=== PATIENT | female | born 1960 | race Caucasian/White ===

== ENCOUNTER 2020-03-13 08:39 | Outpatient (CLI) | payer OTHER, SELFPAY ==
[2020-03-13 09:10] LABS: Basophils Absolute Auto 0.1 K/mm3 (0.0-0.1); Basophils Percent Auto 0.6 % (0.2-1.2); Eosinophils Absolute Auto 0.1 K/mm3 (0-0.3); Eosinophils Percent Auto 1.5 % (0-4.4); Hematocrit 47.1 % (37.0-47.0); Hemoglobin 15.5 g/dL (12.0-15.0); Immature Granulocyte Absolute 0.06 K/mm3 (0.00-0.031); Immature Granulocyte Percent A 0.7 % (0-0.5); Lymphocytes Absolute Auto 2.46 K/mm3 (0.9-3.2); Lymphocytes Percent Auto 30.2 % (18.3-44.2); Mean Corpuscular HGB Conc 32.9 g/dl (32-36); Mean Corpuscular Hemoglobin 29.5 pg (26-34); Mean Corpuscular Volume 89.7 fl (80-100); Mean Platelet Volume 10.7 fl (7.4-10.4); Monocytes Absolute Auto 0.7 K/mm3 (0.1-0.6); Neutrophils Absolute Auto 4.8 K/mm3 (1.3-6.7); Platelet Count Result 301 k/mm3 (150-375); Red Blood Count 5.25 M/mm3 (4.2-5.4); Red Cell Distribution Width 12.6 % (11.5-14.5); White Blood Count 8.2 K/mm3 (4.5-10.0)
[2020-03-13 09:22] LABS: Alanine Aminotransferase 30 U/L (4-35); Albumin Level 4.5 g/dL (3.5-5.1); Alkaline Phosphatase 54 U/L (38-126); Anion Gap 13 mmol/L (8-16); Aspartate Amino Transferase 26 U/L (14-36); Bilirubin,Total 0.5 mg/dL (0.2-1.3); Blood Urea Nitrogen 23 mg/dL (7-17); Carbon Dioxide 24 mmol/L (22-30); Chloride 103 mmol/L (98-107); Cholesterol 159 mg/dL (0-200); Creatine Kinase 75 U/L (30-135); Estimated Glomerular Filt Rate > 60; Glucose 122 mg/dL (65-105); HDL Direct 53 mg/dL; Sodium 140 mmol/L (137-145); Triglycerides 84 mg/dL (<150)
[2020-03-13 09:25] LABS: Hemoglobin A1C 5.3 % (<5.7)
[2020-03-13 09:33] LABS: LDL Cholesterol Direct 91 mg/dL
[2020-03-13 09:42] LABS: Add Urine Microscopic? YES; Amorphous Sediment Urine Few; Appearance Urine Cloudy (Clear); Bacteria Urine Trace /hpf; Bilirubin Urine Negative (Negative); Color Urine Yellow (Yellow); Glucose Urine UA Negative (Negative); Ketones Urine Negative (Negative); Leukocyte Esterase Ur Negative LEU/UL (Negative); Mucus Urine Rare /lpf; Nitrate Urine Negative (Negative); Protein Urine Negative (Negative); Specific Grav Ur 1.018 (1.001-1.035); Squamous Epithelial Cell Urine Many /hpf (Few); Urobilinogen Urine Negative mg/dL (<2.0)
[2020-03-13 09:45] LABS: Blood Urine Negative (Negative)
[2020-03-13 10:28] LABS: Hepatitis C Virus Antibody Negative (Negative)
== END 2020-03-13 08:40 | disposition home or self-care (01) ==
PROVIDERS: PCP Internal Medicine; Visit Provider Internal Medicine
DX: Z13.0 Encounter for screening for diseases of the blood and blood-forming organs and certain disorders involving the immune mechanism (principal); Z11.59 Encounter for screening for other viral diseases
CPT/HCPCS: 36415; 80053; 80061; 81001; 82550; 83036; 84443; 85025; 86803; 87086

== ENCOUNTER 2020-05-04 00:39 | Outpatient (CLI) | payer OTHER, SELFPAY ==
[2020-05-04 18:51] LABS: SARS-CoV-2 RNA PCR Negative
== END 2020-05-04 00:40 | disposition home or self-care (01) ==
LOC: ANHCOVIDDT 00:39
PROVIDERS: PCP Internal Medicine; Visit Provider Internal Medicine Gastroenterology
DX: Z01.818 Encounter for other preprocedural examination (principal); Z20.828 Contact with and (suspected) exposure to other viral communicable diseases
CPT/HCPCS: 87635; C9803; U0003

== ENCOUNTER 2020-05-07 00:36 | Day surgery (SDC) | payer OTHER, SELFPAY ==
[2020-04-28 13:53] VITALS: BMI 32.0
[2020-05-07 08:16] VITALS: BP 142/94; PULSE 78; RESP 20; TEMP 36.5; O2SAT 98; BMI 32.2
[2020-05-07] MEDS: LACTATED RINGERS 1,000 ML 150 ML IV CONT (08:27)
--- NOTE | 2020-05-07 09:08 | PM.HPGS ---
History of Present Illness History of Present Illness Consent: Risks, benefits, and alternatives have been discussed and questions answered. Patient agrees to proceed with procedure. Chief complaint: Neoplasm Screening Narrative: Nalini Forte is a 60 year old female with polyps 2014, mother with rectal cancer Review of Systems Constitutional: Constitutional: Denies headache(s) and Denies weakness Eyes: Eyes: Denies blurry vision ENT: Reports Normal hearing present, Denies headache(s) and Denies neck pain Cardiovascular: Cardiovascular: Denies chest pain and Denies dyspnea Respiratory: Respiratory: Denies dyspnea Gastrointestinal: Gastrointestinal: Reports no additional gastrointestinal complaints Genitourinary: Genitourinary: Denies dysuria Musculoskeletal: Musculoskeletal: Denies neck pain Integumentary/Breasts: Skin/Breast: Denies dry skin Neurologic: Reports Normal hearing present, Denies headache(s) and Denies weakness Psychiatric: Psychiatric: Denies anxiety Endocrine: Endocrine: Denies change in body appearance Hematologic/Lymphatic: Hematologic/Lymphatic: Denies easy bleeding Allergic/Immunologic: Allergic/Immunologic: Denies urticaria PMF Past Medical History Medical History (Updated 05/07/20 @ 09:09 by Luiz Ocasio MD) Adenomatous colon polyp Family history of colon cancer in mother Social History Social History Smoking packs per day: 1 Smoking cigarettes per day: 20.0 Years smoked: 32 Smoking pack-years: 32.00 Smoking status: Former smoker Tobacco type: cigarettes Alcohol intake: current Drinks per week: 6 Alcohol use details: BEER Substance use: former Substance use type: marijuana Living arrangements: with family Spiritual care concerns: No Meds Home Medications and Allergies Home Medications Medication Instructions Recorded Confirmed Type peg 3350-electrolytes 236 240 ml PO Q10M #4000 ml 03/18/20 Rx gram-22.74 gram-6.74 gram-5.86 gram solution Glucomanan 2 tab-cap PO BID 04/28/20 04/28/20 History Tumeric 500 mg PO DAILY 04/28/20 04/28/20 History ascorbic acid (vitamin C) 1 g PO DAILY 04/28/20 04/28/20 History aspirin [Adult Low Dose Aspirin] 81 mg PO DAILY 04/28/20 04/28/20 History atorvastatin 10 mg PO DAILY 04/28/20 04/28/20 History calcium carbonate-vitamin D3 2 tablet PO DAILY 04/28/20 04/28/20 History [Calcium with Vitamin D] cetirizine [Zyrtec] 10 mg PO DAILY PRN 04/28/20 04/28/20 History cinnamon bark [Cinnamon] 500 mg PO DAILY 04/28/20 04/28/20 History green tea leaf extract [Green Tea] 315 mg PO DAILY 04/28/20 04/28/20 History levothyroxine 75 mcg PO DAILY 04/28/20 04/28/20 History magnesium 500 mg PO DAILY 04/28/20 04/28/20 History norethindrone ac-eth estradiol 1 tablet PO DAILY 04/28/20 04/28/20 History [Jinteli] triamterene-hydrochlorothiazid 1 tablet PO DAILY 04/28/20 04/28/20 History zinc 50 mg PO DAILY 04/28/20 04/28/20 History Allergies Allergy/AdvReac Type Severity Reaction Status Date / Time amoxicillin Allergy Intermediate Rash Verified 05/07/20 08:15 clavulanic acid Allergy Intermediate Rash Verified 05/07/20 08:15 [From Augmentin] Vital Signs Vital Signs - 24 hr 05/07/20 08:16 Temperature 97.7 F Pulse Rate 78 Respiratory Rate 20 Blood Pressure 142/94 H Pulse Oximetry 98 Exam Const: General: comfortable and no acute distress HENMT: General nose exam: Normal nares present Eyes: General: appearance normal, both eyes and all related structures Neck: Neck: no JVD Resp: Auscultation: clear to auscultation bilaterally Cardio: Rate: regular rate Rhythm: regular rhythm GI: Inspection: non-distended GI Palp: Yes Soft to palpation Skin: General skin exam: normal color Neuro: General: gait normal Speech: normal speech Extrem: General: normal to inspection Psych: Mental Status: mental status grossly normal Assessment and Plan Assessment and plan
--- NOTE | 2020-05-07 09:17 | WPDANESEPPF ---
Anes - Initial Pre Proc Eval Procedure: Operation Date: 05/07/20 09:30 Proposed Procedures p Screening Colonoscopy - Luiz Ocasio MD Date/Time: 05/07/20 09:17 Surgeon: Luiz Ocasio MD Pre Op Diagnosis: Neoplasm Screening Patient Data Age: 60 Gender: F Height: 5 ft 3 in Weight: 82.5 kg Last Vital Signs Temp 97.7 F 05/07/20 08:16 Pulse 78 05/07/20 08:16 Resp 20 05/07/20 08:16 BP 142/94 H 05/07/20 08:16 Pulse Ox 98 05/07/20 08:16 Allergies Allergy/AdvReac Type Severity Reaction Status Date / Time amoxicillin Allergy Intermediate Rash Verified 05/07/20 08:15 clavulanic acid Allergy Intermediate Rash Verified 05/07/20 08:15 [From Augmentin] Home Medications Medication Instructions Recorded Confirmed Type peg 3350-electrolytes 236 240 ml PO Q10M #4000 ml 03/18/20 Rx gram-22.74 gram-6.74 gram-5.86 gram solution Glucomanan 2 tab-cap PO BID 04/28/20 04/28/20 History Tumeric 500 mg PO DAILY 04/28/20 04/28/20 History ascorbic acid (vitamin C) 1 g PO DAILY 04/28/20 04/28/20 History aspirin [Adult Low Dose Aspirin] 81 mg PO DAILY 04/28/20 04/28/20 History atorvastatin 10 mg PO DAILY 04/28/20 04/28/20 History calcium carbonate-vitamin D3 2 tablet PO DAILY 04/28/20 04/28/20 History [Calcium with Vitamin D] cetirizine [Zyrtec] 10 mg PO DAILY PRN 04/28/20 04/28/20 History cinnamon bark [Cinnamon] 500 mg PO DAILY 04/28/20 04/28/20 History green tea leaf extract [Green Tea] 315 mg PO DAILY 04/28/20 04/28/20 History levothyroxine 75 mcg PO DAILY 04/28/20 04/28/20 History magnesium 500 mg PO DAILY 04/28/20 04/28/20 History norethindrone ac-eth estradiol 1 tablet PO DAILY 04/28/20 04/28/20 History [Jinteli] triamterene-hydrochlorothiazid 1 tablet PO DAILY 04/28/20 04/28/20 History zinc 50 mg PO DAILY 04/28/20 04/28/20 History Patient hx anesthesia problems: none Family hx anesthesia problems: none [facility] Past Medical History Medical History (Updated 05/07/20 @ 09:16 by Sid Duque MD) Adenomatous colon polyp Family history of colon cancer in mother Hyperlipidemia Hypertension Hypothyroid Social History Social History Smoking packs per day: 1 Smoking cigarettes per day: 20.0 Years smoked: 32 Smoking pack-years: 32.00 Smoking status: Former smoker Tobacco type: cigarettes Alcohol intake: current Drinks per week: 6 Alcohol use details: BEER Substance use: former Substance use type: marijuana Living arrangements: with family Spiritual care concerns: No Anes - Eval Final PreProcedure Day of Procedure 05/07/20 09:17 Patient weight: obese Heart: regular rate and rhythm Lungs: clear to auscultation Airway: Mallampati scale class II Neurological: alert and oriented Last oral intake: >/= 8 hours ASA classification: III Emergent: no Anesthetic plan: proceed Anesthesia type and monitoring: general GIVS and standard monitoring Informed Consent: The patient's anesthetic plan and its attendant risks and benefits were discussed with the patient/family/POA. Questions were solicited and answers provided to the satisfaction of the patient/family/POA.
[2020-05-07 09:41] VITALS: BP 139/87; PULSE 82; RESP 22; O2SAT 98
[2020-05-07 09:51] VITALS: BP 152/96; PULSE 70; RESP 20; O2SAT 100
[2020-05-07 10:01] VITALS: BP 103/70; PULSE 75; RESP 20; O2SAT 97
== END 2020-05-07 10:14 | disposition home or self-care (01) ==
PROVIDERS: PCP Internal Medicine; Visit Provider Internal Medicine Gastroenterology
PROC: 0DJD8ZZ Inspection of Lower Intestinal Tract, Via Natural or Artificial Opening Endoscopic (ICD-10-PCS; CPT 45378; principal; 2020-05-07 09:30)
DX: Z12.11 Encounter for screening for malignant neoplasm of colon (principal); D12.0 Benign neoplasm of cecum; D12.3 Benign neoplasm of transverse colon; K63.5 Polyp of colon; K57.30 Diverticulosis of large intestine without perforation or abscess without bleeding; K64.8 Other hemorrhoids; Z80.0 Family history of malignant neoplasm of digestive organs; I10 Essential (primary) hypertension; E78.5 Hyperlipidemia, unspecified; E03.9 Hypothyroidism, unspecified; Z87.891 Personal history of nicotine dependence; E66.9 Obesity, unspecified; Z68.32 Body mass index [BMI] 32.0-32.9, adult
CPT/HCPCS: 45380; 88305; J2704; J7120

== ENCOUNTER 2020-05-08 07:30 | Outpatient (CLI) | payer OTHER, SELFPAY ==
--- NOTE | ~2020-05-08 | MM_ITS ---
EXAMINATION: MM screening [facility] BI w drew HISTORY: Screening mammogram TECHNIQUE: Craniocaudal and mediolateral oblique 3-D tomosynthesis images were obtained and synthetic 2-D images were generated. CAD analysis was submitted and interpreted. COMPARISON: 04/12/2019, 04/13/2018, 03/15/2017 BREAST PARENCHYMAL COMPOSITION: There are scattered areas of fibroglandular density. FINDINGS: RIGHT BREAST: An asymmetry is present in the posterior third of the outer breast 7 cm from the nipple on the craniocaudal view. LEFT BREAST: There is no evidence of suspicious mass, calcification, or architectural distortion to s uggest malignancy. There has been no significant interval change. IMPRESSION: 1. Right breast asymmetry on the craniocaudal view 2. Additional mammographic views and possible breast ultrasound are recommended. BI-RADS Category 0: Incomplete: Needs additional imaging evaluation. Reviewed, dictated and finalized at location A. ICATIONS INSTRUCTOR IMPRESSION: 1. Right breast asymmetry on the craniocaudal view 2. Additional mammographic views and possible breast ultrasound are recommended . BI-RADS Category 0: Incomplete: Needs additional imaging evaluation.
== END 2020-05-08 07:31 | disposition home or self-care (01) ==
LOC: ANHIMG 07:37
PROVIDERS: PCP Internal Medicine
DX: Z12.31 Encounter for screening mammogram for malignant neoplasm of breast (principal); R92.8 Other abnormal and inconclusive findings on diagnostic imaging of breast
CPT/HCPCS: 77063; 77067

== ENCOUNTER 2020-06-11 13:14 | Outpatient (CLI) | payer OTHER, SELFPAY ==
--- NOTE | ~2020-06-11 | MMUS_ITS ---
EXAMINATION: MM diagnostic mammo unilat RT, US breast RT limited HISTORY: Follow-up right breast asymmetry TECHNIQUE: Additional 3-D tomosynthesis images of the right breast were performed and synthetic 2-D i mages were generated. CAD analysis was submitted and interpreted. High resolution Limited right breas t ultrasound was performed. COMPARISON: Comparison to multiple prior studies sequentially, with oldest reviewed study dated 02/26. BREAST PARENCHYMAL COMPOSITION: Breast composed of scattered areas of fibroglandular density. FINDINGS: MAMMOGRAPHIC FINDINGS: There are no suspicious masses, calcifications or architectural distortion in the right breast to sug gest malignancy. ULTRASOUND: Limited right breast ultrasound: Normal heterogeneous echotexture without focal solid or cystic mass. IMPRESSION: 1. No mammographic or sonographic evidence for malignancy in the right breast. 2. Routine yearly screening mammogram and regular clinical breast examination are recommended. BI-RADS Category 1: Negative Reviewed, dictated and finalized at location A. CH BILLING PAYROLL CLERK IMPRESSION: 1. No mammographic or sonographic evidence for malignancy in the right breast. 2. Routine yearly screening mammogram and regular clinical breast examination a re recommended. BI-RADS Category 1: Negative
== END 2020-06-11 13:15 | disposition home or self-care (01) ==
LOC: ANHIMG 13:17
PROVIDERS: PCP Internal Medicine
DX: R92.8 Other abnormal and inconclusive findings on diagnostic imaging of breast (principal)
CPT/HCPCS: 76642; 77065

== ENCOUNTER 2020-07-19 10:28 | Outpatient (CLI) | payer OTHER, SELFPAY ==
[2020-07-19 11:01] LABS: Alanine Aminotransferase 27 U/L (4-35); Aspartate Amino Transferase 27 U/L (14-36)
== END 2020-07-19 10:29 | disposition home or self-care (01) ==
LOC: ANHLAB 10:30
PROVIDERS: PCP Internal Medicine; Visit Provider Podiatrist Foot & Ankle Surgery
DX: B35.1 Tinea unguium (principal)
CPT/HCPCS: 36415; 84450; 84460

== ENCOUNTER 2020-10-21 10:26 | Outpatient (CLI) | payer OTHER, SELFPAY ==
[2020-10-21 10:53] LABS: Alanine Aminotransferase 27 U/L (4-35); Aspartate Amino Transferase 29 U/L (14-36)
== END 2020-10-21 10:27 | disposition home or self-care (01) ==
LOC: ANHLAB 10:28
PROVIDERS: PCP Internal Medicine; Visit Provider Podiatrist Foot & Ankle Surgery
DX: B35.1 Tinea unguium (principal)
CPT/HCPCS: 36415; 84450; 84460

== ENCOUNTER 2020-11-26 08:45 | Outpatient (CLI) | payer OTHER, SELFPAY ==
[2020-11-26 11:37] LABS: Hepatitis C Virus Antibody Negative (Negative)
== END 2020-11-26 08:46 | disposition home or self-care (01) ==
PROVIDERS: PCP Internal Medicine; Visit Provider Internal Medicine
DX: E03.9 Hypothyroidism, unspecified (principal); Z11.59 Encounter for screening for other viral diseases
CPT/HCPCS: 36415; 84443; 86803

== ENCOUNTER 2021-01-17 08:45 | Outpatient (CLI) | payer OTHER, SELFPAY ==
[2021-01-17 09:24] LABS: Alanine Aminotransferase 39 U/L (4-35); Aspartate Amino Transferase 33 U/L (14-36)
== END 2021-01-17 08:46 | disposition home or self-care (01) ==
PROVIDERS: PCP Internal Medicine; Visit Provider Podiatrist Foot & Ankle Surgery
DX: B35.1 Tinea unguium (principal)
CPT/HCPCS: 36415; 84450; 84460

== ENCOUNTER 2021-07-05 07:16 | Outpatient (CLI) | payer OTHER, SELFPAY ==
--- NOTE | ~2021-07-05 | MM_ITS ---
EXAMINATION: MM screening [facility] BI w drew HISTORY: Screening TECHNIQUE: Craniocaudal and mediolateral oblique 3-D tomosynthesis images were obtained and synthetic 2-D images were generated. CAD analysis was submitted and interpreted. COMPARISON: Comparison to multiple prior studies sequentially, with oldest reviewed study dated 02/25. BREAST PARENCHYMAL COMPOSITION: There are scattered areas of fibroglandular density. FINDINGS: There is no evidence of suspicious mass, calcification, or architectural distortion to sugg est malignancy in either breast. There has been no suspicious interval change. IMPRESSION: 1. No mammographic evidence of malignancy. 2. Recommend routine screening mammography in one year. BI-RADS Category 1: Negative Reviewed, dictated and finalized at location A. LE SCHOOL LIBRARIAN
== END 2021-07-05 07:17 | disposition home or self-care (01) ==
LOC: ANHIMG 07:18
PROVIDERS: PCP Internal Medicine
DX: Z12.31 Encounter for screening mammogram for malignant neoplasm of breast (principal)
CPT/HCPCS: 77063; 77067

== ENCOUNTER 2021-08-06 08:06 | Outpatient (CLI) | payer OTHER, SELFPAY ==
[2021-08-06 08:59] LABS: Basophils Absolute Auto 0.1 K/mm3 (0.0-0.1); Basophils Percent Auto 0.9 % (0.2-1.2); Eosinophils Absolute Auto 0.1 K/mm3 (0-0.3); Eosinophils Percent Auto 1.3 % (0-4.4); Hematocrit 45.3 % (37.0-47.0); Hemoglobin 14.9 g/dL (12.0-15.0); Immature Granulocyte Absolute 0.04 K/mm3 (0.00-0.031); Immature Granulocyte Percent A 0.6 % (0-0.5); Lymphocytes Absolute Auto 2.11 K/mm3 (0.9-3.2); Lymphocytes Percent Auto 31.4 % (18.3-44.2); Mean Corpuscular HGB Conc 32.9 g/dl (32-36); Mean Corpuscular Hemoglobin 30.2 pg (26-34); Mean Corpuscular Volume 91.7 fl (80-100); Mean Platelet Volume 10.1 fl (7.4-10.4); Monocytes Absolute Auto 0.5 K/mm3 (0.1-0.6); Monocytes Percent Auto 7.6 % (2.6-8.5); Neutrophils Absolute Auto 3.9 K/mm3 (1.3-6.7); Neutrophils Percent Auto 58.2 % (45.5-73.1); Platelet Count Result 300 k/mm3 (150-375); Red Blood Count 4.94 M/mm3 (4.2-5.4); Red Cell Distribution Width 13.2 % (11.5-14.5); White Blood Count 6.7 K/mm3 (4.5-10.0)
[2021-08-06 09:15] LABS: Add Urine Microscopic? YES; Alanine Aminotransferase 33 U/L (4-35); Albumin Level 4.4 g/dL (3.5-5.1); Alkaline Phosphatase 63 U/L (38-126); Anion Gap 5 mmol/L (8-16); Appearance Urine Cloudy (Clear); Aspartate Amino Transferase 32 U/L (14-36); Bilirubin Urine Negative (Negative); Bilirubin,Total 0.3 mg/dL (0.2-1.3); Blood Urea Nitrogen 21 mg/dL (7-17); Calcium 9.5 mg/dL (8.4-10.2); Carbon Dioxide 30 mmol/L (22-30); Chloride 103 mmol/L (98-107); Cholesterol 164 mg/dL (0-200); Color Urine Amber (Yellow); Estimated Glomerular Filt Rate > 60; Glucose 112 mg/dL (65-110); Glucose Urine UA Negative (Negative); HDL Direct 52 mg/dL; Ketones Urine Negative (Negative); Leukocyte Esterase Ur 2+ LEU/UL (Negative); Mucus Urine Rare /lpf; Nitrate Urine Negative (Negative); Potassium 3.8 mmol/L (3.4-5.0); Protein Urine Negative (Negative); Sodium 138 mmol/L (137-145); Specific Grav Ur 1.017 (1.001-1.035); Squamous Epithelial Cell Urine Many /hpf (Few); Triglycerides 73 mg/dL (<150); Urobilinogen Urine Negative mg/dL (<2.0); WBC Urine 31-50 /hpf
[2021-08-06 09:17] LABS: Blood Urine Negative (Negative)
[2021-08-06 09:26] LABS: LDL Cholesterol Direct 88 mg/dL
[2021-08-06 09:43] LABS: Thyroid Stimulating Hormone 0.038 uIU/mL (0.465-4.680)
== END 2021-08-06 08:07 | disposition home or self-care (01) ==
PROVIDERS: PCP Internal Medicine; Visit Provider Internal Medicine
DX: Z13.0 Encounter for screening for diseases of the blood and blood-forming organs and certain disorders involving the immune mechanism (principal); I10 Essential (primary) hypertension; E78.5 Hyperlipidemia, unspecified; E03.9 Hypothyroidism, unspecified
CPT/HCPCS: 36415; 80053; 80061; 81001; 83036; 84443; 85025; 87086

== ENCOUNTER 2021-09-23 14:49 | Outpatient (CLI) | payer OTHER, SELFPAY | END 2021-09-23 14:50 | disposition home or self-care (01) | LOC: ANHLAB 14:53 | PROVIDERS: PCP Internal Medicine | DX: E03.9 Hypothyroidism, unspecified (principal) | CPT/HCPCS: 36415; 84443 ==

== ENCOUNTER 2022-01-17 10:20 | Outpatient (CLI) | payer OTHER, SELFPAY ==
[2022-01-17 10:54] LABS: Alanine Aminotransferase 24 U/L (6-35); Aspartate Amino Transferase 35 U/L (14-36)
== END 2022-01-17 10:21 | disposition home or self-care (01) ==
PROVIDERS: PCP Internal Medicine; Visit Provider Podiatrist Foot & Ankle Surgery
DX: B35.1 Tinea unguium (principal)
CPT/HCPCS: 36415; 84450; 84460

== ENCOUNTER 2022-04-25 09:25 | Outpatient (CLI) | payer OTHER, SELFPAY ==
[2022-04-25 10:09] LABS: Alanine Aminotransferase 29 U/L (6-35); Aspartate Amino Transferase 30 U/L (14-36)
== END 2022-04-25 09:26 | disposition home or self-care (01) ==
LOC: ANHLAB 09:28
PROVIDERS: PCP Internal Medicine; Visit Provider Podiatrist Foot & Ankle Surgery
DX: B35.1 Tinea unguium (principal)
CPT/HCPCS: 36415; 84450; 84460

== ENCOUNTER 2022-07-13 09:10 | Outpatient (CLI) | payer OTHER, SELFPAY ==
[2022-07-13 10:27] LABS: Alanine Aminotransferase 34 U/L (6-35); Aspartate Amino Transferase 29 U/L (14-36)
== END 2022-07-13 09:11 | disposition home or self-care (01) ==
LOC: ANHLAB 09:12
PROVIDERS: PCP Internal Medicine; Visit Provider Podiatrist Foot & Ankle Surgery
DX: B35.1 Tinea unguium (principal)
CPT/HCPCS: 36415; 84450; 84460

== ENCOUNTER 2022-07-29 09:40 | Outpatient (CLI) | payer OTHER, SELFPAY ==
--- NOTE | ~2022-07-29 | DEXA_ITS ---
Bone Density Report Name: TRACIE LIRIANO Age: 62 Sex: Female Ethnicity: White Date of : 1960 Indication: postmenopausal; screening for osteoporosis; Referring Provider: DAVIE, ANIL Study: Bone densitometry was performed. Exam Date: July 29, 2022 Accession number: [id number] Bone Density: Region BMD T-score Z-score Classification AP Spine(L1-L4) 1.037 -0.1 1.3 Normal Femoral Neck (Left) 0.855 0.0 1.3 Normal Total Hip (Left) 1.045 0.8 1.8 Normal Femoral Neck (Right) 0.896 0.4 1.7 Normal Total Hip (Right) 1.028 0.7 1.7 Normal Total Hip Mean 1.037 0.8 1.8 Normal World Health Organization criteria for BMD impression classify patients as: Normal (T-score at or above -1.0), Osteopenia (T-score between -1.0 and -2.5), or Osteoporosis (T-score at or below -2.5). 10-year Fracture Risk: FRAX not reported because: All T-scores for Spine Total, Hip Total, Femoral Neck at or above -1.0 Clinical Information Provided by Patient: Has used the following medications: Vitamin D, Calcium Patient maximum height was 62 Menopause Age: 52 Drinks caffeinated beverages Onset of menses at age 14 Number of children 0 Impression: The patient has normal bone mass. Discussion: BONE DENSITY IS ABOVE THE MINIMUM DESIRABLE LEVEL AT ALL SKELETAL SITES TESTED. This patient?s bone mineral density is above the minimum desirable level (T-score -1.0 or better) at all sites measured. The patient should follow a healthful lifestyle (good nutrition with adequate calcium and vitamin D, and appropriate weight-bearing exercise). Follow-Up: Consider repeating this study in 5 years or sooner if there is some new clinical indication. Reported by: [facility] on 07/29/2022 10:08:00 AM. Reviewed, dictated and finalized at location A. [facility]
--- NOTE | ~2022-07-29 | MM_ITS ---
EXAMINATION: MM screening [facility] BI w drew HISTORY: Screening mammogram TECHNIQUE: Craniocaudal and mediolateral oblique 3-D tomosynthesis images were obtained and synthetic 2-D images were generated. CAD analysis was submitted and interpreted. COMPARISON: 07/05/2021, 06/11/2020, 05/08/2020 BREAST PARENCHYMAL COMPOSITION: There are scattered areas of fibroglandular density. FINDINGS: No suspicious mass, calcification, or architectural distortion are identified in either ana cristina ast to suggest malignancy. There has been no suspicious interval change. IMPRESSION: 1. No mammographic evidence of malignancy. 2. Recommend routine screening mammography in one year. BI-RADS Category 1: Negative Reviewed, dictated and finalized at location A. RITY DIRECTOR
== END 2022-07-29 09:41 | disposition home or self-care (01) ==
LOC: ANHIMG 09:42
PROVIDERS: PCP Internal Medicine; Visit Provider Nurse Practitioner
DX: Z12.31 Encounter for screening mammogram for malignant neoplasm of breast (principal); Z13.820 Encounter for screening for osteoporosis; Z78.0 Asymptomatic menopausal state
CPT/HCPCS: 77063; 77067; 77080

== ENCOUNTER 2022-08-05 07:05 | Outpatient (CLI) | payer OTHER, SELFPAY ==
[2022-08-05 07:19] LABS: Basophils Percent Auto 0.6 % (0.2-1.2); Eosinophils Absolute Auto 0.1 K/mm3 (0-0.3); Eosinophils Percent Auto 1.1 % (0-4.4); Hemoglobin 15.7 g/dL (12.0-15.0); Immature Granulocyte Absolute 0.03 K/mm3 (0.00-0.031); Immature Granulocyte Percent A 0.5 % (0-0.5); Lymphocytes Absolute Auto 1.95 K/mm3 (0.9-3.2); Lymphocytes Percent Auto 29.8 % (18.3-44.2); Mean Corpuscular HGB Conc 34.1 g/dl (32-36); Mean Corpuscular Hemoglobin 29.8 pg (26-34); Mean Corpuscular Volume 87.5 fl (80-100); Monocytes Absolute Auto 0.5 K/mm3 (0.1-0.6); Monocytes Percent Auto 7.5 % (2.6-8.5); Neutrophils Percent Auto 60.5 % (45.5-73.1); Platelet Count Result 291 k/mm3 (150-375); Red Blood Count 5.26 M/mm3 (4.2-5.4); Red Cell Distribution Width 12.3 % (11.5-14.5); White Blood Count 6.6 K/mm3 (4.5-10.0)
[2022-08-05 07:26] LABS: Appearance Urine Clear (Clear); Bacteria Urine None Seen /hpf; Bilirubin Urine Negative (Negative); Blood Urine Negative (Negative); Color Urine Dark Yellow (Yellow); Glucose Urine UA Negative (Negative); Ketones Urine Negative (Negative); Leukocyte Esterase Ur Trace LEU/UL (Negative); Nitrate Urine Negative (Negative); Non Pathogenic Casts 0-2; Protein Urine Negative (Negative); RBC Urine 0-2 /hpf (0-2); Specific Grav Ur 1.017 (1.001-1.035); Squamous Epithelial Cell Urine Occasional /hpf (Few); Urobilinogen Urine 0.2 mg/dL (<2.0); WBC Urine 0-5 /hpf
[2022-08-05 07:30] LABS: Add Urine Microscopic? YES
[2022-08-05 07:34] LABS: Alanine Aminotransferase 29 U/L (6-35); Albumin Level 4.5 g/dL (3.5-5.1); Alkaline Phosphatase 67 U/L (38-126); Anion Gap 6 mmol/L (8-16); Aspartate Amino Transferase 27 U/L (14-36); Bilirubin,Total 0.5 mg/dL (0.2-1.3); Blood Urea Nitrogen 21 mg/dL (7-17); Calcium 9.4 mg/dL (8.4-10.2); Carbon Dioxide 29 mmol/L (22-30); Chloride 101 mmol/L (98-107); Cholesterol 164 mg/dL (0-200); Estimated Glomerular Filt Rate > 60; Glucose 105 mg/dL (65-110); HDL Direct 61 mg/dL; Potassium 3.7 mmol/L (3.4-5.0); Sodium 136 mmol/L (137-145); Triglycerides 89 mg/dL (<150)
[2022-08-05 07:45] LABS: LDL Cholesterol Direct 81 mg/dL
[2022-08-05 08:35] LABS: Hemoglobin A1C 5.3 % (<5.7)
== END 2022-08-05 07:06 | disposition home or self-care (01) ==
PROVIDERS: PCP Internal Medicine; Visit Provider Internal Medicine
DX: Z13.0 Encounter for screening for diseases of the blood and blood-forming organs and certain disorders involving the immune mechanism (principal)
CPT/HCPCS: 36415; 80053; 80061; 81001; 83036; 84443; 85025

== ENCOUNTER 2022-10-05 15:48 | Outpatient (CLI) | payer OTHER, SELFPAY ==
[2022-10-05 18:57] LABS: Hepatitis C Virus Antibody Negative (Negative)
== END 2022-10-05 15:49 | disposition home or self-care (01) ==
LOC: ANHLAB 15:50
PROVIDERS: PCP Internal Medicine; Visit Provider Internal Medicine
DX: Z11.59 Encounter for screening for other viral diseases (principal)
CPT/HCPCS: 36415; 86803

== ENCOUNTER 2023-08-03 06:58 | Outpatient (CLI) | payer OTHER, SELFPAY ==
[2023-08-03 07:35] LABS: Appearance Urine Clear (Clear); Bilirubin Urine Negative (Negative); Blood Urine Negative (Negative); Color Urine Yellow (Yellow); Glucose Urine UA Negative (Negative); Ketones Urine Negative (Negative); Leukocyte Esterase Ur Negative LEU/UL (Negative); Nitrate Urine Negative (Negative); Protein Urine Negative (Negative); Urobilinogen Urine 0.2 mg/dL (<2.0); pH Urine 6.5 (5.0-9.0)
[2023-08-03 07:36] LABS: Basophils Percent Auto 0.6 % (0.2-1.2); Eosinophils Absolute Auto 0.1 K/mm3 (0-0.3); Eosinophils Percent Auto 2.1 % (0-4.4); Hematocrit 49.9 % (37.0-47.0); Immature Granulocyte Absolute 0.03 K/mm3 (0.00-0.031); Immature Granulocyte Percent A 0.4 % (0-0.5); Lymphocytes Absolute Auto 2.21 K/mm3 (0.9-3.2); Lymphocytes Percent Auto 32.8 % (18.3-44.2); Mean Corpuscular HGB Conc 32.1 g/dl (32-36); Mean Corpuscular Hemoglobin 28.9 pg (26-34); Mean Corpuscular Volume 90.2 fl (80-100); Mean Platelet Volume 10.4 fl (7.4-10.4); Monocytes Absolute Auto 0.4 K/mm3 (0.1-0.6); Monocytes Percent Auto 6.1 % (2.6-8.5); Neutrophils Absolute Auto 3.9 K/mm3 (1.3-6.7); Platelet Count Result 269 k/mm3 (150-375); Red Blood Count 5.53 M/mm3 (4.2-5.4); Red Cell Distribution Width 12.9 % (11.5-14.5); White Blood Count 6.7 K/mm3 (4.5-10.0)
[2023-08-03 07:37] LABS: Add Urine Microscopic? NO
[2023-08-03 07:49] LABS: Alanine Aminotransferase 30 U/L (6-35); Albumin Level 4.4 g/dL (3.5-5.1); Alkaline Phosphatase 58 U/L (38-126); Anion Gap 3 mmol/L (8-16); Aspartate Amino Transferase 30 U/L (14-36); Bilirubin,Total 0.5 mg/dL (0.2-1.3); Blood Urea Nitrogen 29 mg/dL (7-17); Calcium 10.3 mg/dL (8.4-10.2); Carbon Dioxide 31 mmol/L (22-30); Chloride 104 mmol/L (98-107); Cholesterol 180 mg/dL (0-200); Estimated Glomerular Filt Rate > 60; Glucose 107 mg/dL (65-110); HDL Direct 75 mg/dL; Sodium 138 mmol/L (137-145); Triglycerides 77 mg/dL (<150)
[2023-08-03 08:00] LABS: LDL Cholesterol Direct 96 mg/dL
[2023-08-03 08:13] LABS: Hemoglobin A1C 5.8 % (<5.7)
== END 2023-08-03 06:59 | disposition home or self-care (01) ==
LOC: ANHLAB 07:01
PROVIDERS: PCP Internal Medicine; Visit Provider Internal Medicine
DX: Z13.9 Encounter for screening, unspecified (principal)
CPT/HCPCS: 36415; 80053; 80061; 81003; 83036; 84443; 85025

== ENCOUNTER 2023-10-04 09:49 | Outpatient (CLI) | payer OTHER, SELFPAY ==
--- NOTE | ~2023-10-04 | MM_ITS ---
EXAMINATION: MM screening [facility] BI w drew HISTORY: Screening mammogram TECHNIQUE: Craniocaudal and mediolateral oblique 3-D tomosynthesis images were obtained and synthetic 2-D images were generated. CAD analysis was submitted and interpreted. COMPARISON: 07/29/2022, 07/05/2021 bilateral screening mammogram examinations BREAST PARENCHYMAL COMPOSITION: There are scattered areas of fibroglandular density. FINDINGS: There is no evidence of suspicious mass, calcification, or architectural distortion to sugg est malignancy in either breast. There has been no suspicious interval change. IMPRESSION: 1. No mammographic evidence of malignancy. 2. Recommend routine screening mammography in one year. BI-RADS Category 1: Negative Reviewed, dictated and finalized at location B.
== END 2023-10-04 09:50 | disposition home or self-care (01) ==
PROVIDERS: PCP Internal Medicine; Visit Provider Nurse Practitioner
DX: Z12.31 Encounter for screening mammogram for malignant neoplasm of breast (principal)
CPT/HCPCS: 77063; 77067

== ENCOUNTER 2024-02-07 14:01 | Outpatient (CLI) | payer OTHER, SELFPAY ==
[2024-02-07 15:11] LABS: Alanine Aminotransferase 23 U/L (6-35); Albumin Level 4.5 g/dL (3.5-5.1); Alkaline Phosphatase 49 U/L (38-126); Anion Gap 6 mmol/L (4-12); Aspartate Amino Transferase 29 U/L (14-36); Bilirubin,Total 0.6 mg/dL (0.2-1.3); Blood Urea Nitrogen 21 mg/dL (7-17); Calcium 10.5 mg/dL (8.4-10.2); Carbon Dioxide 33 mmol/L (22-30); Chloride 91 mmol/L (98-107); Estimated Glomerular Filt Rate > 60; Glucose 85 mg/dL (65-110); Potassium 3.3 mmol/L (3.4-5.0); Sodium 130 mmol/L (137-145)
[2024-02-07 15:51] LABS: Hemoglobin A1C 5.2 % (<5.7)
[2024-02-09 05:09] LABS: TSH QUEST 2.69 mIU/L (0.40-4.50)
== END 2024-02-07 14:02 | disposition home or self-care (01) ==
LOC: ANHLAB 14:03
PROVIDERS: PCP Internal Medicine; Visit Provider Internal Medicine
DX: E03.9 Hypothyroidism, unspecified (principal); I10 Essential (primary) hypertension; E78.5 Hyperlipidemia, unspecified
CPT/HCPCS: 36415; 80053; 83036; 84481; 86376

== ENCOUNTER 2024-04-30 15:57 | Emergency (ER) | payer OTHER, SELFPAY ==
[2024-04-30 16:04] VITALS: BP 136/71; PULSE 60; RESP 18; TEMP 36.2; O2SAT 100
[2024-04-30 16:12] LABS: EDUAAPPEAR Cloudy; EDUABILI Negative (Negative); EDUABLOOD 3+ (Negative); EDUACOLOR1 Dark; EDUAGLUCOSE Negative (Negative); EDUAKETONE 1+ (Negative); EDUALEUKO 1+ (Negative); EDUANITRATE Positive (Negative); EDUAPROTEIN 2+ (Negative); EDUAUROBILI 0.2
--- NOTE | 2024-04-30 16:12 | ED_ITS ---
HPI - Female Genitourinary General Chief complaint: Urogenital-Female Stated complaint: Possible UTI Time Seen by Provider: 04/30/24 16:12 Source: patient, RN notes reviewed and old records reviewed Mode of arrival: ambulatory Limitations: no limitations History of Present Illness HPI Narrative: patient presents with complaints of urinary frequency and burning that began this morning. She denies any fever, chills, sweats. She denies any backache or abdominal pain. She denies any nausea or vomiting. Denies hematuria. She reports pain is intense every time she has urinated today. Denies any injury or trauma. No other concerns or complaints at this time Related Data Home Medications Medication Instructions Recorded Confirmed Glucomanan 1 dose PO DAILY 04/28/20 04/30/24 ascorbic acid (vitamin C) 1,000 mg 1 g PO DAILY 04/28/20 04/30/24 tablet atorvastatin 10 mg tablet 10 mg PO DAILY 04/28/20 04/30/24 cetirizine 10 mg tablet (Zyrtec) 10 mg PO DAILY PRN Allergy Symptoms 04/28/20 04/30/24 cinnamon bark 500 mg capsule 500 mg PO DAILY 04/28/20 04/30/24 (Cinnamon) levothyroxine 75 mcg tablet 50 mcg PO DAILY 04/28/20 04/30/24 magnesium 500 mg tablet 500 mg PO DAILY 04/28/20 04/30/24 norethindrone acetate 1 mg-ethinyl 0.5 tablet PO DAILY 04/28/20 04/30/24 estradiol 5 mcg tablet (Jinteli) zinc 50 mg tablet 50 mg PO DAILY 04/28/20 04/30/24 berberine chloride 500 mg capsule 500 mg PO BID 04/28/24 04/30/24 cholecalciferol (vitamin D3) 25 25 mcg PO DAILY 04/28/24 04/30/24 mcg (1,000 unit) capsule (Vitamin D3) olmesartan 5 mg tablet 5 mg PO DAILY 04/28/24 04/30/24 semaglutide (weight loss) 0.5 0.5 mg subcut WEEKLY 04/30/24 04/30/24 mg/0.5 mL subcutaneous pen injector Allergies Allergy/AdvReac Type Severity Reaction Status Date / Time amoxicillin Allergy Mild Rash Verified 04/30/24 15:59 clavulanic acid Allergy Mild Rash Verified 04/30/24 15:59 [From Augmentin] Review of Systems Review of Systems: All systems reviewed & are unremarkable except as noted in HPI and below Constitutional: Constitutional: Reports no additional constitutional complaints ENT: Reports system reviewed and no additional complaints, except as documented Cardiovascular: Cardiovascular: Reports no additional cardiovascular complaints Respiratory: Respiratory: Reports no additional respiratory complaints Gastrointestinal: Gastrointestinal: Reports no additional gastrointestinal complaints Genitourinary: Genitourinary: Reports no additional female genitourinary complaints, Reports as per HPI, Reports dysuria and Reports urinary urgency [facility] Past Medical History Medical History (Updated 04/30/24 @ 16:17 by Tamiko Velazquez APRN) Adenomatous colon polyp Family history of colon cancer in mother Hyperlipidemia Hypertension Hypothyroid Social History Social History Smoking packs per day: 1 Smoking cigarettes per day: 20.0 Years smoked: 32 Smoking pack-years: 32.00 Smoking status: Former smoker Tobacco type: cigarettes Alcohol intake: current Drinks per week: 6 Alcohol use details: Beer, rum Substance use: never Substance use type: marijuana Living arrangements: with family Spiritual care concerns: No Comments At the time of my signature, I reviewed and agree with the nursing past medical, surgical, social, and family history. There is no relevant family history pertinent to the patient complaint. Exam Const: General: cooperative, no acute distress, alert and awake Orientation/consciousness: oriented to person, oriented to place and oriented to time HENMT: Head: normal to inspection Resp: Effort & Inspection: normal respiratory effort and able to speak in complete sentences Auscultation: clear to auscultation bilaterally, no crackles, no rales, no rhonchi and no wheezes Cardio: Palpation: normal PMI Rate: regular rate Rhythm: regular rhythm Heart sounds: S1 normal heart sound present and S2 normal heart sound present : General: Yes bladder normal to palpation and Yes no CVA tenderness Neuro: General: oriented to person, oriented to place and oriented to time Cranial nerves: Yes CN's II-XII intact bilaterally Psych: Appearance: grossly normal Thought process: Normal thought process present Insight: Good insight present (Psych) Judgement: Good judgement present (Psych) Course Course Level of Care: Express Care Visit Vital Signs Vital signs: Vital Signs Temperature 97.2 F L 04/30/24 16:04 Pulse Rate 60 04/30/24 16:04 Respiratory Rate 18 04/30/24 16:04 Blood Pressure 136/71 04/30/24 16:04 Pulse Oximetry 100 04/30/24 16:04 Oxygen Delivery Room Air 04/30/24 16:04 Temperature 97.2 F L 04/30/24 16:04 Pulse Rate 60 04/30/24 16:04 Respiratory Rate 18 04/30/24 16:04 Blood Pressure 136/71 04/30/24 16:04 Pulse Oximetry 100 04/30/24 16:04 Oxygen Delivery Room Air 04/30/24 16:04 Reviewed MDM - Female Genitourinary MDM Narrative Medical decision making narrative: reassuring physical exam. Patient nontoxic appearing. UA consistent with UTI, start Macrobid. Culture pending. Follow with primary care provider. Emergency department for new worse symptoms. Discharge instructions reviewed with patient, as well as provided in writing per nursing staff. The instructions also include specific and strict return/GO TO THE ER as well as f/u information. All questions have been answered, and the patient deny any further questions with discharge and discharge plan. Some parts of this dictation were generated by voice recognition software and may contain typographical and/or grammatical inaccuracies. Differential Diagnosis Differential diagnosis: Likely urinary tract infection and cystitis Medical Records Attestation: I reviewed the patient's medical records. Lab Data Attestation: I reviewed the patient's lab results. Discharge Plan Discharge Clinical Impression: UTI (urinary tract infection) Qualifiers: Urinary tract infection type: site unspecified Hematuria presence: with hematu gretta Qualified Code(s): N39.0 - Urinary tract infection, site not specified Patient Disposition: Home, Self-Care Condition: Stable Instructions: Antibiotic Form Additional Instructions: take medications as prescribed. Follow with primary care provider. Emergency department for new or worse symptoms Patient Language: Malian Prescriptions: New nitrofurantoin monohyd/m-cryst [Macrobid] 100 mg capsule 100 mg PO Q12H 5 Days Qty: 10 0RF Rx Instructions: must administer with a meal/food No Action semaglutide (weight loss) 0.5 mg/0.5 mL Pen Injector 0.5 mg SUBCUT WEEKLY Rx Instructions: states 5mg/1ml takes 30 units once a week ascorbic acid (vitamin C) 1,000 mg Tablet 1 g PO DAILY magnesium 500 mg Tablet 500 mg PO DAILY cetirizine [Zyrtec] 10 mg Tablet 10 mg PO DAILY PRN (Reason: Allergy Symptoms) atorvastatin 10 mg tablet 10 mg PO DAILY norethindrone ac-eth estradiol [Jinteli] 1-5 mg-mcg tablet 0.5 tablet PO DAILY levothyroxine 75 mcg tablet 50 mcg PO DAILY zinc 50 mg Tablet 50 mg PO DAILY cinnamon bark [Cinnamon] 500 mg Capsule 500 mg PO DAILY Glucomanan 1 dose PO DAILY cholecalciferol (vitamin D3) [Vitamin D3] 25 mcg (1,000 unit) Capsule 25 mcg PO DAILY olmesartan 5 mg tablet 5 mg PO DAILY berberine chloride 500 mg Capsule 500 mg PO BID Follow-up/Referrals: Mary,Brigette Perera MD [Primary Care Provider] - 2 Weeks Stand Alone Forms: Work/School Release IP Time of Disposition: 16:18
== END 2024-04-30 16:20 | disposition home or self-care (01) ==
PROVIDERS: Emergency Provider Nurse Practitioner Family; PCP Internal Medicine
DX: N39.0 Urinary tract infection, site not specified (principal); B96.20 Unspecified Escherichia coli [E. coli] as the cause of diseases classified elsewhere; Z87.891 Personal history of nicotine dependence; I10 Essential (primary) hypertension; E78.5 Hyperlipidemia, unspecified; E03.9 Hypothyroidism, unspecified
CPT/HCPCS: 81003; 87077; 87086; 87186; 99213; G0463

== ENCOUNTER 2024-05-09 01:37 | Day surgery (SDC) | payer OTHER, SELFPAY ==
[2024-04-28 14:25] VITALS: BMI 27.8
[2024-05-09 06:10] VITALS: BMI 27.9
[2024-05-09 06:24] VITALS: BP 102/85; PULSE 75; RESP 18; TEMP 35.9; O2SAT 100
[2024-05-09] MEDS: LACTATED RINGERS 1,000 ML 150 ML IV CONT (06:34)
--- NOTE | 2024-05-09 06:47 | WPDANESEPPF ---
Anes - Initial Pre Proc Eval Procedure: Operation Date: 05/09/24 07:30 Proposed Procedures p Colonoscopy - Valentín Branch MD Date/Time: 05/09/24 06:47 Surgeon: Valentín Branch MD Pre Op Diagnosis: hx of colon polyps Patient Data Age: 64 Gender: F Height: 1.57 m Weight: 69.3 kg Last Vital Signs Temp 35.9 C L 05/09/24 06:24 Pulse 75 05/09/24 06:24 Resp 18 05/09/24 06:24 BP 102/85 05/09/24 06:24 Pulse Ox 100 05/09/24 06:24 O2 Del Method Room Air 05/09/24 06:24 Allergies Allergy/AdvReac Type Severity Reaction Status Date / Time amoxicillin Allergy Mild Rash Verified 05/09/24 06:17 clavulanic acid (From Allergy Mild Rash Verified 05/09/24 06:17 Augmentin) Home Medications ?Medication ?Instructions ?Recorded ?Confirmed ?Type Glucomanan 1 dose PO DAILY 04/28/20 05/09/24 History ascorbic acid (vitamin C) 1,000 mg 1 g PO DAILY 04/28/20 05/09/24 History tablet atorvastatin 10 mg tablet 10 mg PO DAILY 04/28/20 05/09/24 History cetirizine 10 mg tablet (Zyrtec) 10 mg PO DAILY PRN Allergy Symptoms 04/28/20 05/09/24 History cinnamon bark 500 mg capsule 500 mg PO DAILY 04/28/20 05/09/24 History (Cinnamon) levothyroxine 75 mcg tablet 50 mcg PO DAILY 04/28/20 05/09/24 History magnesium 500 mg tablet 500 mg PO DAILY 04/28/20 05/09/24 History norethindrone acetate 1 mg-ethinyl 0.5 tablet PO DAILY 04/28/20 05/09/24 History estradiol 5 mcg tablet (Jinteli) zinc 50 mg tablet 50 mg PO DAILY 04/28/20 05/09/24 History berberine chloride 500 mg capsule 500 mg PO BID 04/28/24 05/09/24 History cholecalciferol (vitamin D3) 25 25 mcg PO DAILY 04/28/24 05/09/24 History mcg (1,000 unit) capsule (Vitamin D3) olmesartan 5 mg tablet 5 mg PO DAILY 04/28/24 05/09/24 History nitrofurantoin 100 mg PO Q12H 5 days #10 caps 04/30/24 05/09/24 Rx monohydrate/macrocrystals 100 mg capsule (Macrobid) semaglutide (weight loss) 0.5 0.5 mg subcut WEEKLY 04/30/24 05/09/24 History mg/0.5 mL subcutaneous pen injector Patient hx anesthesia problems: none Family hx anesthesia problems: none Results Review: All pre-operative results and documents have been reviewed as part of the pre-operative evaluation. [facility] Past Medical History Medical History Hypothyroid Hypertension Hyperlipidemia Family history of colon cancer in mother Adenomatous colon polyp Social History Social History Smoking packs per day: 1 Smoking cigarettes per day: 20.0 Years smoked: 32 Smoking pack-years: 32.00 Smoking status: Former smoker Tobacco type: cigarettes Alcohol intake: current Drinks per week: 6 Alcohol use details: BEER Substance use: never Substance use type: marijuana Living arrangements: with family Spiritual care concerns: No Anes - Eval Final PreProcedure Day of Procedure 05/09/24 06:47 Patient weight: overweight Heart: regular rate and rhythm Lungs: clear to auscultation Airway: Mallampati scale class II Neurological: alert and oriented Last oral intake: >/= 8 hours ASA classification: III Emergent: no Anesthetic plan: proceed Anesthesia type and monitoring: general GIVS and standard monitoring Results Review: All pre-operative results and documents have been reviewed as part of the pre-operative evaluation. Informed Consent: The patient's anesthetic plan and its attendant risks and benefits were discussed with the patient/family/POA. Questions were solicited and answers provided to the satisfaction of the patient/family/POA.
[2024-05-09 07:51] VITALS: BP 146/83; PULSE 72; RESP 12; O2SAT 100
--- NOTE | 2024-05-09 07:53 | PM.IMHP ---
H&P: HPI History of Present Illness Date/Time: 05/09/24 07:53 Chief Complaint: Family history of colorectal cancer Narrative: This patient has family history of colorectal cancer. her mother had colorectal cancer at age 63. Her last colonoscopy was 5 years ago. She has adenomas. She is currently asymptomatic from GI standpoint. Review of Systems Review of Systems: All systems reviewed & are unremarkable except as noted in HPI and below PMFSH Past Medical History Medical History Hypothyroid Hypertension Hyperlipidemia Family history of colon cancer in mother Adenomatous colon polyp Social History Social History Smoking packs per day: 1 Smoking cigarettes per day: 20.0 Years smoked: 32 Smoking pack-years: 32.00 Smoking status: Former smoker Tobacco type: cigarettes Alcohol intake: current Drinks per week: 6 Alcohol use details: BEER Substance use: never Substance use type: marijuana Living arrangements: with family Spiritual care concerns: No Meds Home Medications and Allergies Home Medications ?Medication ?Instructions ?Recorded ?Confirmed ?Type Glucomanan 1 dose PO DAILY 04/28/20 05/09/24 History ascorbic acid (vitamin C) 1,000 mg 1 g PO DAILY 04/28/20 05/09/24 History tablet atorvastatin 10 mg tablet 10 mg PO DAILY 04/28/20 05/09/24 History cetirizine 10 mg tablet (Zyrtec) 10 mg PO DAILY PRN Allergy Symptoms 04/28/20 05/09/24 History cinnamon bark 500 mg capsule 500 mg PO DAILY 04/28/20 05/09/24 History (Cinnamon) levothyroxine 75 mcg tablet 50 mcg PO DAILY 04/28/20 05/09/24 History magnesium 500 mg tablet 500 mg PO DAILY 04/28/20 05/09/24 History norethindrone acetate 1 mg-ethinyl 0.5 tablet PO DAILY 04/28/20 05/09/24 History estradiol 5 mcg tablet (Jinteli) zinc 50 mg tablet 50 mg PO DAILY 04/28/20 05/09/24 History berberine chloride 500 mg capsule 500 mg PO BID 04/28/24 05/09/24 History cholecalciferol (vitamin D3) 25 25 mcg PO DAILY 04/28/24 05/09/24 History mcg (1,000 unit) capsule (Vitamin D3) olmesartan 5 mg tablet 5 mg PO DAILY 04/28/24 05/09/24 History nitrofurantoin 100 mg PO Q12H 5 days #10 caps 04/30/24 05/09/24 Rx monohydrate/macrocrystals 100 mg capsule (Macrobid) semaglutide (weight loss) 0.5 0.5 mg subcut WEEKLY 04/30/24 05/09/24 History mg/0.5 mL subcutaneous pen injector Allergies Allergy/AdvReac Type Severity Reaction Status Date / Time amoxicillin Allergy Mild Rash Verified 05/09/24 06:17 clavulanic acid (From Allergy Mild Rash Verified 05/09/24 06:17 Augmentin) Vital Signs Vital Signs - 24 hr 05/09/24 06:24 Temperature 96.6 F L Pulse Rate 75 Respiratory Rate 18 Blood Pressure 102/85 Pulse Oximetry 100 Oxygen Delivery Room Air Exam Const: General: cooperative and healthy appearing Resp: Effort & Inspection: normal respiratory effort and able to speak in complete sentences Auscultation: clear to auscultation bilaterally Cardio: Rate: regular rate Rhythm: regular rhythm GI: Inspection: normal to inspection GI Palp: No No hepatosplenomegaly present Auscultation: normal bowel sounds Rectal Exam: deferred Skin: General skin exam: normal color Psych: Appearance: grossly normal Mental Status: mental status grossly normal Assessment and Plan Assessment and plan (1) Adenomatous colon polyp: Code(s): D12.6 - Benign neoplasm of colon, unspecified Status: Acute (2) Family history of colon cancer in mother: Code(s): Z80.0 - Family history of malignant neoplasm of digestive organs Status: Acute Assessment and Plan: The patient is deemed a good candidate for the procedure. Consent signed. Will proceed.
[2024-05-09 08:01] VITALS: BP 160/92; PULSE 64; RESP 14; O2SAT 100
[2024-05-09 08:11] VITALS: BP 157/96; PULSE 65; RESP 19; O2SAT 100
== END 2024-05-09 08:26 | disposition home or self-care (01) ==
PROVIDERS: PCP Internal Medicine; Referring Provider Internal Medicine Gastroenterology; Visit Provider Internal Medicine Gastroenterology
PROC: 0DJD8ZZ Inspection of Lower Intestinal Tract, Via Natural or Artificial Opening Endoscopic (ICD-10-PCS; CPT 45378; principal; 2024-05-09 07:30)
DX: Z12.11 Encounter for screening for malignant neoplasm of colon (principal); D12.3 Benign neoplasm of transverse colon; K57.30 Diverticulosis of large intestine without perforation or abscess without bleeding; E03.9 Hypothyroidism, unspecified; I10 Essential (primary) hypertension; E78.5 Hyperlipidemia, unspecified; F12.90 Cannabis use, unspecified, uncomplicated; Z79.85 Long-term (current) use of injectable non-insulin antidiabetic drugs; Z87.891 Personal history of nicotine dependence; Z80.0 Family history of malignant neoplasm of digestive organs
CPT/HCPCS: 45385; 88305; J2003; J2704; J7120

== ENCOUNTER 2024-08-18 09:43 | Outpatient (CLI) | payer OTHER, SELFPAY ==
[2024-08-18 10:52] LABS: Basophils Percent Auto 0.5 % (0.2-1.2); Eosinophils Absolute Auto 0.1 K/mm3 (0-0.3); Eosinophils Percent Auto 1.1 % (0-4.4); Hematocrit 48.1 % (37.0-47.0); Hemoglobin 15.6 g/dL (12.0-15.0); Immature Granulocyte Absolute 0.03 K/mm3 (0.00-0.031); Immature Granulocyte Percent A 0.4 % (0-0.5); Lymphocytes Absolute Auto 2.34 K/mm3 (0.9-3.2); Lymphocytes Percent Auto 31.3 % (18.3-44.2); Mean Corpuscular HGB Conc 32.4 g/dl (32-36); Mean Corpuscular Volume 92.5 fl (80-100); Mean Platelet Volume 10.3 fl (7.4-10.4); Monocytes Absolute Auto 0.5 K/mm3 (0.1-0.6); Monocytes Percent Auto 6.4 % (2.6-8.5); Neutrophils Absolute Auto 4.5 K/mm3 (1.3-6.7); Neutrophils Percent Auto 60.3 % (45.5-73.1); Platelet Count Result 289 k/mm3 (150-375); Red Cell Distribution Width 12.8 % (11.5-14.5); White Blood Count 7.5 K/mm3 (4.5-10.0)
--- OUTSIDE RECORDS SUMMARY | 2024-08-18 10:58 | XMS_ITS | Encounter Summary ---
Author Organization [facility] Address [address] [place] [address] Care Team Providers Care Sweeping Compound Blender Name Role Phone Unavailable Primary Care Provider Unavailabl e Encounter Details Date Type Department Care Team (Late st Contact Info) Description 11/02/2018 Abstract [facility] CONVERSION [address] [place], [place] [id number] , Generic Conversion, Social History Tobacco Use Types Packs/Day Years Used Date Smoking Tobacco: Never Assessed Comments Unknown Sex and Gender Information Value Date Recorded Sex Assigned at Not on file Legal Sex Female 7:42 PM CDT Gender Identity Not on file Sexual Orientation Not on file documented as of this encounter Plan of Treatment Not on file documented as of this encounter Visit Diagnoses Not on filedocumented in this encounter
--- OUTSIDE RECORDS SUMMARY | 2024-08-18 10:58 | XMS_ITS | Clinical Summary ---
Author Organization [facility] Address [address] [place] [address] Care Team Providers Care Casing Crew Name Role Phone Unavailable Primary Care Provider Unavailabl e Social History Tobacco Use Types Packs/Day Years Used Date Smoking Tobacco: Never Assessed Comments Unknown Sex and Gender Information Value Date Recorded Sex Assigned at Not on file Legal Sex Female 7:42 PM CDT Gender Identity Not on file Sexual Orientation Not on file Plan of Treatment Health Maintenance Due Date Last Done Comments Cervical Cancer Screening Pa p Smear (Age 30 to 64) Every 3 Years 1962 Colorectal Cancer Screening Colonoscopy (10 Years) 1962 Annual Physical 1965 Hepatitis C 02/22/1980 DTaP, Tdap and Td Vaccines ( 1 - Tdap) 1981 Cervical Cancer Screening Pa p with HPV Testing (Age 30 to 64) Every 5 Years 02/22/1992 Cervical Cancer Screening with HPV 02/22/1992 Mammogram Screening 2002 Zoster Vaccines (1 of 2) 02/22/2012 COVID-19 Vaccine (2023-2 5 season) 2024 Influenza Adult (#1) 2024 RSV Immunization or 60+ Years (1 - 1-dose 75+ series) 2037 Meningococcal B Vaccine Aged Out No l onger eligible based on patient's age to complete this topic Meningococcal Vaccine Aged Out No gillian ana eligible based on patient's age to complete this topic Pneumococcal Vaccine: Pediat rics (0 to 5 Years) and At-Risk Patients (6 to 64 Years) Aged Out No longer eligible b ased on patient's age to complete this topic RSV Immunizations Under 20 Months Aged Out No longer eligible based on patient's age to complete this topic
--- OUTSIDE RECORDS SUMMARY | 2024-08-18 10:58 | XMS_ITS | Encounter Summary ---
Author Organization [facility] Facility Care Team Providers Care Printing Engineer Name Role Phone Brigette Hernandez MD Primary Care Provider + [phone] Viktoriya Coats MD Unavailable [phone] Silver Martinez DPM, Gabriel Unavailable + [phone] Luiz Londono MD Unavailable + Sri Doll NP Unavailable Encounter Details Date Type Department Care Team (Latest Contact Info) Description 01/15/2017 Orders Only [facility]IN[facility] ProviderAndreas MD [address] [place] [address] Social History Tobacco Use Types Packs/Day Years Used Date Smoking Tobacco: Never Assessed Comments Unknown Sex and Gender Information Value Date Recorded Sex Assigned at Not on file Legal Sex Female 7:35 PM MATERIALS ENGINEER Gender Identity Not on file Sexual Orientation Not on file documented as of this encounter Plan of Treatment Not on file documented as of this encounter Procedures Procedure Name Priority Date/Time Associated Diagnosis Comments SCAN - LABS 01/22/2017 12:00 AM CDT documented in this encounter Results * SCAN - LABS (01/22/2017 12:00 AM CDT) Narrative 01/22/2017 12:00 AM CDT Ordered by an unspecified provider. Historical Provider Final Res ult documented in this encounter Visit Diagnoses Not on filedocumented in this encounter Care Teams Printing Engineer Relationship Specialty Start Date End Date Brigette Hernandez MD [address] [facility] [address] [place] [address] PCP - General Internal Medicine 01/28/19 Viktoriya Coats MD [address] [facility] [address] [place] [address] Referring Physician Obstetrics and Gynecology 09/06/21 09/12/23 Blane Sheppard Jr., DPM [address] [facility] [address] [place] [address] Referring Physician Podiatry 09/06/21 Luiz Londono MD [address] [facility] [address] [place] [address] Referring Physician Gastroenterology 09/06/21 Sri Doll, GILL BOX OPERATOR [address] [facility] [address] [place], [place] [id number] Nurse Practitioner Nurse Practitioner 09/13/23 documented as of this encounter
--- OUTSIDE RECORDS SUMMARY | 2024-08-18 10:58 | XMS_ITS | Encounter Summary ---
Author Organization [facility] Facility Care Team Providers Care Underground Mine Superintendent Name Role Phone Brigette Hernandez MD Primary Care Provider + [phone] Viktoriya Coats MD Unavailable [phone] Silver Martinez DPM, Gabriel Unavailable + [phone] Luiz Londono MD Unavailable + Sri Doll NP Unavailable Encounter Details Date Type Department Care Team (Latest Contact Info) Description 07/25/2017 Orders Only [facility]INCON[facility] ProviderAndreas MD [address] [place] [address] Social History Tobacco Use Types Packs/Day Years Used Date Smoking Tobacco: Never Assessed Comments Unknown Sex and Gender Information Value Date Recorded Sex Assigned at Not on file Legal Sex Female 7:35 PM PROGRAM COUNSELOR Gender Identity Not on file Sexual Orientation Not on file documented as of this encounter Plan of Treatment Not on file documented as of this encounter Procedures Procedure Name Priority Date/Time Associated Diagnosis Comments SCAN - LABS 07/26/2017 12:00 AM PROGRAM COUNSELOR documented in this encounter Results * SCAN - LABS (07/26/2017 12:00 AM PROGRAM COUNSELOR) Narrative 07/26/2017 12:00 AM PROGRAM COUNSELOR Ordered by an unspecified provider. Historical Provider Final Res ult documented in this encounter Visit Diagnoses Not on filedocumented in this encounter Care Teams Underground Mine Superintendent Relationship Specialty Start Date End Date Brigette Hernandez MD [address] [place] [address] [address] [place] [address] PCP - General Internal Medicine 01/28/19 Viktoriya Coats MD [address] [address] Referring Physician Obstetrics and Gynecology 09/06/21 09/12/23 Blane Sheppard Jr., DPM [address] [facility] [address] [place] [address] Referring Physician Podiatry 09/06/21 Luiz Londono MD [address] [facility] [address] [place] [address] Referring Physician Gastroenterology 09/06/21 Sri Doll, TECHNICAL SUPPORT ASSISTANT [address] [facility] [address] [place] [address] Nurse Practitioner Nurse Practitioner 09/13/23 documented as of this encounter
--- OUTSIDE RECORDS SUMMARY | 2024-08-18 10:58 | XMS_ITS | Encounter Summary ---
Author Organization [facility] Facility Care Team Providers Care Cotton Stripper Name Role Phone Brigette Hernandez MD Primary Care Provider + [phone] Viktoriya Coats MD Unavailable +[phone] Silver Martinez DPM, Gabriel Unavailable + [phone] Luiz Londono MD Unavailable + Sri Doll NP Unavailable Encounter Details Date Type Department Care Team (Latest Contact Info) Description 01/02/2018 Orders Only [facility] CLINCON[facility] ProviderAndreas MD [address] [place] [address] Social History Tobacco Use Types Packs/Day Years Used Date Smoking Tobacco: Never Assessed Comments Unknown Sex and Gender Information Value Date Recorded Sex Assigned at Not on file Legal Sex Female 7:35 PM MARKET RESEARCH SENIOR PROJECT MANAGER Gender Identity Not on file Sexual Orientation Not on file documented as of this encounter Plan of Treatment Not on file documented as of this encounter Procedures Procedure Name Priority Date/Time Associated Diagnosis Comments SCAN - LABS 02/01/2018 12:00 AM CDT documented in this encounter Results * SCAN - LABS (02/01/2018 12:00 AM CDT) Narrative 02/01/2018 12:00 AM CDT Ordered by an unspecified provider. Historical Provider Final Res ult documented in this encounter Visit Diagnoses Not on filedocumented in this encounter Care Teams Cotton Stripper Relationship Specialty Start Date End Date Brigette Hernandez MD [address] [facility] [address] [place] [address] PCP - General Internal Medicine 01/28/19 Viktoriya Coats MD [address] [facility] [address] [place] [address] Referring Physician Obstetrics and Gynecology 09/06/21 09/12/23 Blane Sheppard Jr., DPM [address] [facility] [address] [place] [address] Referring Physician Podiatry 09/06/21 Luiz Londono MD [address] [facility] [address] [place] [address] Referring Physician Gastroenterology 09/06/21 Sri Doll, SEWAGE PLANT OPERATOR [address] [facility] [address] [place], [place] [phone] Nurse Practitioner Nurse Practitioner 09/13/23 documented as of this encounter
--- OUTSIDE RECORDS SUMMARY | 2024-08-18 10:59 | XMS_ITS | Clinical Summary ---
Author Organization [facility] Address [address] [place] [address] Care Team Providers Care Glazier Stained Glass Name Role Phone Brigette Hernandez MD Primary Care Provider + [phone] Silver Martinez DPM, Gabriel Unavailable + [phone] Luiz Londono MD Unavailable + Sri Doll NP Unavailable Allergies Active Allergy Reactions Criticality Noted Date Comments Amoxicillin Rash Medium 01/08/2019 rash Amoxicillin-Pot Clavulanate Rash Medium 01/09/20 19 rash clavulanic acid Medications fluticasone propionate (FLONASE) 50 mcg/actuation nasal spray daily Active magnesium gluconate 200 mg tablet 1 tablet (200 mg total) daily Active coenzyme [id number] E 100-5 mg-unit capsule 100 mg daily Active ergocalciferol, vitamin D2, (VITAMIN D2 ORAL) Take by mouth Active estradiol-noreth indrone (ACTIVELLA) 0.5-0.1 mg per tablet Take 1 tablet by mouth daily 09/03/19 24 Active SEMAGLUTIDE, WEIGHT LOSS, SUBQ Inject 5 mg under the skin 30 units injected sub q every 7 days Active olmesartan (BENICAR) 5 mg tabletIndication s:Essential (primary) hypertension Take 1 tablet (5 mg total) by mouth daily 90 tablet 3 03/04/20 24 025 Active levothyroxine (SYNTHROID) 50 mcg tablet Take 1 tablet (50 mcg total) by mouth daily 90 tablet 1 03/04/20 24 Active atorvastatin (LIPITOR) 10 mg tabletIndication s:Dyslipidemia Take 1 tablet by mouth once daily 90 tablet 07/14/19 25 Active terbinafine (LamiSIL) 250 mg tablet TAKE 1 TABLET BY MOUTH ONCE DAILY FOR 7 DAYS ONCE A MONTH 21 tablet 08/12/19 25 Active terbinafine (LamiSIL) 250 mg tabletIndication s:Onychomycosis Take one po daily for 7 days once a month 21 tablet 2 09/13/19 24 025 Discontinued Active Problems Problem Noted Date Diagnosed Date Family history of colon cancer in mother 024 Annual physical exam 05/30/2020 Assessment & Plan (09/13/2023 9:42 AM CDT): Reviewed previous labs and diagnostic test results. Chronic medical problems evaluated and management plans discussed with the patient. Prescription medications, supplements, vitamins and immunizations reviewed. Wear seatbelts. Use sunscreen. Discussed healthy diet and disease prevention. Recommend moving towards a plant based diet. Discussed importance of scheduling recommended screening tests. Discussed importance of regular physical examinations for health maintenance. Discussed importance of a living will, advanced directives and establishing or updating healthcare power of maintenance man document and providing our office with a copy. Assessment & Plan (09/11/2022 4:19 PM CDT): Reviewed previous labs and diagnostic test results. Chronic medical problems evaluated and management plans discussed with the patient. Prescription medications, supplements, vitamins and immunizations reviewed. Wear seatbelts. Use sunscreen. Discussed healthy diet and disease prevention. Recommend moving towards a plant based diet. Discussed importance of scheduling recommended screening tests. Discussed importance of regular physical examinations for health maintenance. Discussed importance of a living will, advanced directives and establishing or updating healthcare power of maintenance man document and providing our office with a copy. Assessment & Plan (09/06/2021 2:22 PM CDT): Reviewed previous labs and diagnostic test results. Chronic medical problems evaluated and management plans discussed with the patient. Prescription medications, supplements, vitamins and immunizations reviewed. Wear seatbelts. Use sunscreen. Discussed healthy diet and disease prevention. Recommend moving towards a plant based diet. Discussed importance of scheduling recommended screening tests. Discussed importance of regular physical examinations for health maintenance. Discussed importance of a living will, advanced directives and establishing or updating healthcare power of maintenance man document and providing our office with a copy. Assessment & Plan (05/31/2020 4:03 PM CARE CONSULTANT): Wear sunscreen with SPF over 50 while outdoors. Wear sun protective head wear and clothing if planning to stay outdoors exposed to the direct sunlight for extended hours. Wear seatbelts while in a vehicle. Do not TEXT and DRIVE Do not DRINK and DRIVE. Drink responsibly Follow a heart healthy diet and lifestyle. Consume 5-7 servings of fruits and vegetables a day.. Such as the Mediterranean Diet. Maintain/attain normal body weight. Exercise regularly, minimum 20 mins 3 days a week to reduce cardiovascular healthy. Maintain good sleep schedule and sleep habits I recommend that all patients follow a diet that is high in fruits and vegetables and low in processed foods such as sugar and foods that are made with white flour. I recommend using beneficial fats such as olive oil, nuts, seeds and berries and avoiding saturated animal fats. Please stay physically active to the extent that you are physically able to. Test results: if you have not received communication about test results within 7 days of the test being performed, please contact the office. I strongly encourage myChart sign ups. It can facilitate communication flow. Please contact the office for instructions on signing up. Consider getting Shingrix (shingles vaccine). This is a 2-shot series with each injection given 2-6 months apart. You can obtain the vaccine at most major pharmacies without a prescription History of COVID-19 03/29/2020 Assessment & Plan (05/31/2020 4:13 PM CARE CONSULTANT): Resolved, took 2 mos for the pain the leg and left buttocks area, now resolved No current sob Dyslipidemia 08/06/2018 Assessment & Plan (03/04/2024 9:43 AM CDT): At goal cont atorvastatin 10 mg daily Controlled. Assessment & Plan (09/13/2023 9:43 AM CDT): Follow step 1 low cholesterol diet/ Mediterranean Diet. Report if having problems with daily nausea or extreme muscle aches and weaknesses from the chol medication Monitor lipid levels on a regular basis as discussed and planned. Recommend to continue with current Rx atorvastin medication to lower and control cholesterol Controlled. Assessment & Plan (09/11/2022 4:20 PM CDT): Follow step 1 low cholesterol diet/ Mediterranean Diet. Report if having problems with daily nausea or extreme muscle aches and weaknesses from the chol medication Monitor lipid levels on a regular basis as discussed and planned. Recommend to continue with current Rx medication to lower and control cholesterol Controlled. Assessment & Plan (09/06/2021 7:58 AM CDT): Stable Lipid panel not done at this time Ff low chol diet Will repeat lipids in 3 mos when gets tsh repeated Assessment & Plan (05/31/2020 4:03 PM CARE CONSULTANT): Stable on statin. Ff low chol diet Assessment & Plan (04/01/2019 9:45 PM CARE CONSULTANT): Cont atorvastatin at current dose, last july cho panel was in good range. LDL was 95 Repeat chol panel in 6mos Essential (primary) hypertension 09/30/2015 Assessment & Plan (03/04/2024 9:37 AM CDT): Due to low K and low sodium and significant intentional wt loss will change triam hctz to arb for better BP control and stable electrolytes Monitor BP Assessment & Plan (09/13/2023 9:42 AM CDT): Follow low sodium DASH Diet. Exercise regularly for CV health and weight loss. Achieve or Maintain normal BMI/Weight. Take medications as prescribed. Report if having problems with the medication or if develops Chest pains. Monitor BP occly and record. Report if BP consistently over 160/90 or under 90/60 and dizzy and LH. Continue Rx medication. BP is controlled and stable. Assessment & Plan (09/11/2022 4:20 PM CDT): Follow low sodium DASH Diet. Exercise regularly for CV health and weight loss. Achieve or Maintain normal BMI/Weight. Take medications as prescribed. Report if having problems with the medication or if develops Chest pains. Monitor BP occly and record. Report if BP consistently over 160/90 or under 90/60 and dizzy and LH. Continue Rx medication. BP is controlled and stable. Assessment & Plan (09/06/2021 7:58 AM CDT): Labs reviewed K normal At 3.8 Cont triam hctz K rich diet Assessment & Plan (05/31/2020 4:03 PM CARE CONSULTANT): BP is controlled, cont current dose Ff low sodium diet Assessment & Plan (04/01/2019 9:44 PM CARE CONSULTANT): Follow low sodium DASH Diet. Exercise regularly for CV health and weight loss. Achieve or Maintain normal BMI/Weight. Take medications as prescribed. Report if having porblems with the medication or if develops Chest pains. Monitor BP occly and record. Report if BP consistently over 160/90 or under 90/60 and dizzy and LH. BP is controlled and stable. Acquired hypothyroidism 09/30/2015 Assessment & Plan (03/04/2024 9:44 AM CDT): TSH 2.69 Cont current rx medication dose is euthyroid Report if has frequent palpitations, irreg heart beat or sudden changes in weight. Report if develops problem swallowing or hoarseness Assessment & Plan (09/13/2023 9:43 AM CDT): Cont current rx medication dose is euthyroid Report if has frequent palpitations, irreg heart beat or sudden changes in weight. Report if develops problem swallowing or hoarseness Assessment & Plan (09/11/2022 4:20 PM CDT): Cont current rx medication dose is euthyroid Report if has frequent palpitations, irreg heart beat or sudden changes in weight. Report if develops problem swallowing or hoarseness Assessment & Plan (09/06/2021 2:43 PM CDT): TSH is 0.038 Dose needs lowering adjusting if not at risk for cx of hyperthyroidism Lower dose, rx sent earlier last week when I saw the lab pre visit and was concerned about this. Now on lowered 50mcg dose Repeat tsh in 3mos, has order Assessment & Plan (05/31/2020 4:24 PM CARE CONSULTANT): Cont current dose is euthyroid Report if has frequent palpitations, irreg heart beat or sudden changes in weight. Report if develops problem swallowing or hoarseness Assessment & Plan (04/01/2019 9:46 PM CARE CONSULTANT): Cont current 75mcg dose pending TSH level Report if has frequent palpitations, irreg heart beat or sudden changes in weight. Report if develops problem swallowing or hoarseness Personal history of colonic polyps 09/11/2014 Overview (03/04/2024): Colonoscopy- Numerous diverticuli throughout entire colon and small polyp cecum (Dr. Dailey) 09/11/2014 05/07/2020 DR Salgado, 5 polyps removed, diverticuli and int hemorrhoids on a 6 yr ff up now 04/2024 Dr Salgado Assessment & Plan (09/06/2021 7:59 AM CDT): Colonoscopy- Numerous diverticuli throughout entire colon and small polyp cecum (Dr. Dailey) 09/11/2014 05/07/2020 DR Salgado, 5 polyps removed, diverticuli and int hemorrhoids on a 4 yr ff up now Colonoscopy due in 04/2024 Assessment & Plan (05/31/2020 4:08 PM CARE CONSULTANT): Colonoscopy- Numerous diverticuli throughout entire colon and small polyp cecum (Dr. Dailey) 09/11/2014 05/07/2020 DR Salgado, 5 polyps removed, diverticuli and int hemorrhoids on a 4 yr ff up now Assessment & Plan (04/01/2019 9:50 PM CARE CONSULTANT): Colonoscopy due 08/2019 Resolved Problems Problem Noted Date Diagnosed Date Resolved Date Boil of leg except foot 09/06/2021 10/0 12/2023 Assessment & Plan (09/06/2021 2:43 PM CDT): Still with redness and inflammation Start Doxycycline 100 mg bid x 7-10 days Call if worsens Lipoma 04/01/2019 04/01/2019 Immunizations Immunization Administration Dates Next Due Influenza, Quadrivalent, Venita l Culture-based MDCK, Preservative Free, Antibiotic Free, Intramuscular 03/13/2023 Influenza, Trivalent, Preser vative Free, Intramuscular 03/04/2024 Influenza, Unspecified 01/26/2022,2020,03/09/2020,03/20 Pfizer SARS-CoV-2 Monovalent Vaccination (12+ Yrs) PURPLE 08/14/2020,06/08/2020,05/18/2020 Pfizer Sars-Cov-2 Bivalent V accination (12+ YRS) 02/10/2022 Pneumococcal Conjugate PCV 13 07/25/2016 Pneumococcal Polysaccharide PPV23 07/25/2017 Td, adsorbed 05/28/2011 Tdap 09/06/2021 ZOSTER Recombinant 06/28/2022,03/25/2022, 022 Surgical History Surgery Date Site/Laterality Comments FOOT SURGERY EXCISION / CURRETTAGE OF BON E CYST / 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 COLONOSCOPY FRACTURE SURGERY LASIK Medical History Medical History Date Comments Dyslipidemia Diverticulitis Lipoma Hypertension Thyroid disease Varicella Boil of leg except foot 09/06/2021 Family History Medical History Relation Name Comments Cancer Father Leandro Melanoma Father Leandro Colon cancer Mother Kirstin Suicide Completion Mother Kirstin Relation Name Status Comments Father Leandro Mother Kirstin Social History Tobacco Use Types Packs/Day Years Used Date Smoking Tobacco: Former Cigarettes Q uit: 12/01/2006 Smokeless Tobacco: Never Alcohol Use Standard Drinks/Week Comments Yes 4 (1 standard drink = 0.6 oz pur e alcohol) AUDIT-C Answer Date Recorded Q1: How often do you have a drink containing alc ohol? 2-4 times a month 09/13/2023 Q2: How many drinks containi ng alcohol do you have on a typical day when you are drinking? 1 or 2 09/13/2023 Q3: How often do you have si x or more drinks on one occasion? Never 09/13/2023 PHQ-2 Answer Date Recorded PHQ-2 Total Score (If total score is 3 or more points, staff should administer the PHQ-9) 0 03/04/2024 PHQ-9 Answer Date Recorded PHQ-9 Total Score 0 09/13/2023 Comments Unknown Sex and Gender Information Value Date Recorded Sex Assigned at Not on file Legal Sex Female 7:35 PM CARE CONSULTANT Gender Identity Not on file Sexual Orientation Not on file Obstetrics History Last Filed Vital Signs Vital Sign Reading Time Taken Comments Blood Pressure 108/60 03/04/2024 9:07 AM CDT Pulse 75 03/04/2024 9:07 AM CDT Temperature 36.6 C (97.8 F) 03/04/2024 9:07 AM CDT Respiratory Rate - - Oxygen Saturation 97% 03/04/2024 9:07 AM CDT Inhaled Oxygen Concentration - - Weight 70.5 kg (155 lb 6.4 oz) 03/04/2024 9:07 A M CDT Height 157.5 cm (5' 2 ) 03/04/2024 9:07 AM CDT Body Mass Index 28.42 03/04/2024 9:07 AM CDT Plan of Treatment Health Maintenance Due Date Last Done Comments Hepatitis B Screening 02/22/1980 Cervical Cancer Screening 03/16/2021 03/16/2020 Covid-19 Vaccine ( season) 2024 02/22/2023, 02/10/2022, 08/14/2020, Additional history exists Regular Well Visit/Exam 18-64 09/12/2024 09/13/2023, 09/11/2022, 09/06/2021, Additional history exists Breast Cancer Screening-Mammogram 10/03/2024 10/04/2023, 07/29/2022, 06/08/2021, Additional history exists Depression Screening 03/04/2025 03/04/2024, 09/13/2023, 09/13/2023, Additional history exists Colon Cancer Screening-Colonoscopy 05/09/2029 05/09/2024, 05/07/2020, 05/07/2020, Additional history exists DTaP/Tdap/Td Vaccine (2 - Td or Tdap) 09/07/2031 09/06/2021, 05/28/2011 Pneumococcal vaccine <65 Aged Out 07/25/2017, 06/29 No longer eligible based on patient's age to complete this topic Zoster Vaccine Completed 06/28/2022, 02/26, 02/25/2022 Hepatitis C Screening Completed 10/05/2022 Influenza Vaccine Completed 03/04/2024, , 01/26/2022, Additional history exists Colon Cancer Screening-CT Colonography Discontinued 05/09/2024, 05/07/2020, 05/07/2020, Additional history exists Colon Cancer Screening-DNA Stool Discontinued 05/09/2024, 05/07/2020, 05/07/2020, Additional history exists Colon Cancer Screening-FIT Discontinued 05/09, 05/07/2020, 05/07/2020, Additional history exists Colon Cancer Screening-Sigmoidoscopy Discontinued 05/09/2024, 05/07/2020, 05/07/2020, Additional history exists Procedures Procedure Name Priority Date/Time Associated Diagnosis Comments COLONOSCOPY Routine 05/09/2024 MAMMOGRAPHY Routine 10/04/2023 HEPATITIS C SCREENING Routine 10/05/2022 PAP SMEAR WITH HPV Routine 03/16/2020 from Last 3 Months or Most Recently Relevant to Health Maintenance Results * COLONOSCOPY (05/09/2024) Scribed Colonoscopy Normal [facility] Shari MUNOZ HEALTH MAINTENANCE Final Result * MAMMOGRAPHY (10/04/2023) Mammography Normal [facility] Shari MUNOZ HEALTH MAINTENANCE Final Result * HEPATITIS C SCREENING (10/05/2022) SCRIBED HCV ab NEGATIVE [facility] MUNOZ HEALTH MAINTENANCE Edited Result - Final * PAP SMEAR WITH HPV (03/16/2020) [facility] MUNOZ HEALTH MAINTENANCE Final Result from Last 3 Months or Most Recently Relevant to Health Maintenance Insurance [facility] [employer]/PPO Address: [place] [address] [facility] [employer]O Address: [place] [address] Care Teams Glazier Stained Glass Relationship Specialty Start Date End Date Brigette Hernandez MD [address] [place] [id number] PCP - General Internal Medicine 01/28/19 Blane Sheppard Jr., DPM [address] [place] [id number] Referring Physician Podiatry 09/06/21 Luiz Londono MD [address] [facility] [address] [place] [address] Referring Physician Gastroenterology 09/06/21 Sri Doll NP [address] [place] [address] Nurse Practitioner Nurse Practitioner 09/13/23
--- OUTSIDE RECORDS SUMMARY | 2024-08-18 10:59 | XMS_ITS | Referral Summary ---
Author Organization [facility] Address [address] [place] [address] Care Team Providers Care Patrol Lady Name Role Phone Brigette Hernandez MD Primary Care Provider + [phone] Silver Martinez DPM, Gabriel Unavailable + [phone] Luiz Londono MD Unavailable + Sri Doll NP Unavailable Allergies Active Allergy Reactions Criticality Noted Date Comments Amoxicillin Rash Medium 01/08/2019 rash Amoxicillin-Pot Clavulanate Rash Medium 01/09/20 19 rash clavulanic acid Medications fluticasone propionate (FLONASE) 50 mcg/actuation nasal spray daily Active magnesium gluconate 200 mg tablet 1 tablet (200 mg total) daily Active coenzyme C23-wcepnkt E 100-5 mg-unit capsule 100 mg daily [...] and establishing or updating healthcare power of immigration attorney document and providing our office with a [...] and establishing or updating healthcare power of immigration attorney document and providing our office with a [...] and establishing or updating healthcare power of immigration attorney document and providing our office with a copy. Assessment & Plan (05/31/2020 4:03 PM CASTING ROOM OPERATOR): Wear sunscreen with SPF over 50 while [...] 03/29/2020 Assessment & Plan (05/31/2020 4:13 PM CASTING ROOM OPERATOR): Resolved, took 2 mos for the pain [...] repeated Assessment & Plan (05/31/2020 4:03 PM CASTING ROOM OPERATOR): Stable on statin. Ff low chol diet Assessment & Plan (04/01/2019 9:45 PM CASTING ROOM OPERATOR): Cont atorvastatin at current dose, last july [...] diet Assessment & Plan (05/31/2020 4:03 PM CASTING ROOM OPERATOR): BP is controlled, cont current dose Ff low sodium diet Assessment & Plan (04/01/2019 9:44 PM CASTING ROOM OPERATOR): Follow low sodium DASH Diet. Exercise regularly [...] order Assessment & Plan (05/31/2020 4:24 PM CASTING ROOM OPERATOR): Cont current dose is euthyroid Report if has frequent palpitations, irreg heart beat or sudden changes in weight. Report if develops problem swallowing or hoarseness Assessment & Plan (04/01/2019 9:46 PM CASTING ROOM OPERATOR): Cont current 75mcg dose pending TSH level [...] 04/2024 Assessment & Plan (05/31/2020 4:08 PM CASTING ROOM OPERATOR): Colonoscopy- Numerous diverticuli throughout entire colon and small polyp cecum (Dr. Dailey) 09/11/2014 05/07/2020 DR Salgado, 5 polyps removed, diverticuli and int hemorrhoids on a 4 yr ff up now Assessment & Plan (04/01/2019 9:50 PM CASTING ROOM OPERATOR): Colonoscopy due 08/2019 Resolved Problems Problem Noted [...] 05/28/2011 Tdap 09/06/2021 ZOSTER Recombinant 06/28/2022,03/25/2022, 022 Social History Tobacco Use Types Packs/Day Years [...] on file Legal Sex Female 7:35 PM CASTING ROOM OPERATOR Gender Identity Not on file Sexual Orientation Not on file Last Filed Vital Signs Vital Sign Reading [...] 03/04/2024 9:07 AM CDT Plan of Treatment Not on file Procedures Procedure Name Priority Date/Time Associated Diagnosis Comments COLONOSCOPY Routine 05/09/2024 MAMMOGRAPHY Routine 10/04/2023 HEPATITIS C SCREENING Routine 10/05/2022 PAP SMEAR WITH HPV Routine 03/16/2020 from Last 3 Months or Most Recently Relevant to Health Maintenance Results * COLONOSCOPY (05/09/2024) Scribed Colonoscopy Normal [facility] Provider HEALTH MAINTENANCE Final Result * MAMMOGRAPHY (10/04/2023) Mammography Normal [facility] Provider HEALTH MAINTENANCE Final Result * HEPATITIS C SCREENING (10/05/2022) SCRIBED HCV ab NEGATIVE Historical Provider HEALTH MAINTENANCE Edited Result - Final * PAP SMEAR WITH HPV (03/16/2020) [facility] Provider HEALTH MAINTENANCE Final Result from Last 3 Months or Most Recently Relevant to Health Maintenance Insurance Care Teams Patrol Lady Relationship Specialty Start Date End Date Brigette Hernandez MD [address] [place] [address] [id number] PCP - General Internal Medicine 01/28/19 Blane Sheppard Jr., DPNeri [address] [place] [id number] Referring Physician Podiatry 09/06/21 Luiz Londono MD [address] [place] [address] Referring Physician Gastroenterology 09/06/21 Sri Doll, CAROUSEL ATTENDANT [address] [place] [address] Nurse Practitioner Nurse Practitioner 09/13/23
--- OUTSIDE RECORDS SUMMARY | 2024-08-18 10:59 | XMS_ITS | Encounter Summary ---
Author Organization [facility] Care Team Providers Care Set Up And Charger Name Role Phone Brigette Hernandez MD Primary Care Provider + [phone] Viktoriya Coats MD Unavailable +[phone] Silver Martinez DPM, Gabriel Unavailable + [phone] Luiz Londono MD Unavailable + Sri Doll NP Unavailable Encounter Details Date Type Department Care Team (Latest Contact Info) Description 08/06/2018 Orders Only [facility] ProviderAndreas MD [address] [place] [id number] Social History Tobacco Use Types Packs/Day Years Used Date Smoking Tobacco: Never Assessed Comments Unknown Sex and Gender Information Value Date Recorded Sex Assigned at Not on file Legal Sex Female 7:35 PM CALCINE FURNACE TENDER Gender Identity Not on file Sexual Orientation Not on file documented as of this encounter Plan of Treatment Not on file documented as of this encounter Procedures Procedure Name Priority Date/Time Associated Diagnosis Comments SCAN - LABS 08/06/2018 12:00 AM CDT documented in this encounter Results * SCAN - LABS (08/06/2018 12:00 AM CDT) Narrative 08/06/2018 12:00 AM CDT Ordered by an unspecified provider. Historical Provider Final Res ult documented in this encounter Visit Diagnoses Not on filedocumented in this encounter Care Teams Set Up And Charger Relationship Specialty Start Date End Date Brigette Hernandez MD [address] [facility] [address] [place] [address] PCP - General Internal Medicine 01/28/19 Viktoriya Coats MD [address] [facility] [address] [place] [address] Referring Physician Obstetrics and Gynecology 09/06/21 09/12/23 Blane Sheppard Jr., DPM [address] [facility] [address] [place] [address] Referring Physician Podiatry 09/06/21 Luiz Londono MD [address] [facility] [address] [place] [address] Referring Physician Gastroenterology 09/06/21 Sri Doll, POACHER WRINGER OPERATOR [address] [facility] [address] [place], [place] [id number] Nurse Practitioner Nurse Practitioner 09/13/23 documented as of this encounter
--- OUTSIDE RECORDS SUMMARY | 2024-08-18 10:59 | XMS_ITS | Encounter Summary ---
Author Organization [facility] Care Team Providers Care Application Programmer Analyst Name Role Phone Brigette Hernandez MD Primary Care Provider + [phone] Viktoriya Coats MD Unavailable +[phone] Silver Martinez DPM, Gabriel Unavailable + [phone] Luiz Londono MD Unavailable + Sri Doll NP Unavailable Encounter Details Date Type Department Care Team (Latest Contact Info) Description 07/07/2016 Orders Only [facility] CLINCONV ProviderAndreas MD [address] [place] [address] Social History Tobacco Use Types Packs/Day Years Used Date Smoking Tobacco: Never Assessed Comments Unknown Sex and Gender Information Value Date Recorded Sex Assigned at Not on file Legal Sex Female 7:35 PM MANAGER INTENSIVE CARE UNIT Gender Identity Not on file Sexual Orientation Not on file documented as of this encounter Plan of Treatment Not on file documented as of this encounter Procedures Procedure Name Priority Date/Time Associated Diagnosis Comments SCAN - LABS 07/26/2016 12:00 AM MANAGER INTENSIVE CARE UNIT documented in this encounter Results * SCAN - LABS (07/26/2016 12:00 AM MANAGER INTENSIVE CARE UNIT) Narrative 07/26/2016 12:00 AM MANAGER INTENSIVE CARE UNIT Ordered by an unspecified provider. Historical Provider Final Res ult documented in this encounter Visit Diagnoses Not on filedocumented in this encounter Care Teams Application Programmer Analyst Relationship Specialty Start Date End Date Brigette Heranndez MD [address] [place] [address] [address] [place] [address] PCP - General Internal Medicine 01/28/19 Viktoriya Coats MD [address] [address] Referring Physician Obstetrics and Gynecology 09/06/21 09/12/23 Blane Sheppard Jr., DPM [address] [facility] 908 [place] [address] Referring Physician Podiatry 09/06/21 Luiz Londono MD [address] [facility] 204 [place] [address] Referring Physician Gastroenterology 09/06/21 Sri Doll, ACCOUNTANT PROPERTY [address] [facility] 200 [place] [address] Nurse Practitioner Nurse Practitioner 09/13/23 documented as of this encounter
--- OUTSIDE RECORDS SUMMARY | 2024-08-18 10:59 | XMS_ITS | Encounter Summary ---
Author Organization [facility] Facility Care Team Providers Care Kickboxing Instructor Name Role Phone Brigette Hernandez MD Primary Care Provider + [phone] Viktoriya Coats MD Unavailable +[phone] Silver Martinez DPM, Gabriel Unavailable + [phone] Luiz Londono MD Unavailable + Sri Doll NP Unavailable Encounter Details Date Type Department Care Team (Latest Contact Info) Description 09/06/2015 Orders Only [facility] CLINCONV ProviderAndreas MD [address] [place] [address] Social History Tobacco Use Types Packs/Day Years Used Date Smoking Tobacco: Never Assessed Comments Unknown Sex and Gender Information Value Date Recorded Sex Assigned at Not on file Legal Sex Female 7:35 PM ADVERTISING DESIGNER Gender Identity Not on file Sexual Orientation Not on file documented as of this encounter Plan of Treatment Not on file documented as of this encounter Procedures Procedure Name Priority Date/Time Associated Diagnosis Comments SCAN - LABS 09/30/2015 12:00 AM CDT documented in this encounter Results * SCAN - LABS (09/30/2015 12:00 AM CDT) Narrative 09/30/2015 12:00 AM CDT Ordered by an unspecified provider. Historical Provider Final Res ult documented in this encounter Visit Diagnoses Not on filedocumented in this encounter Care Teams Kickboxing Instructor Relationship Specialty Start Date End Date Brigette Hernandez MD 1418 [facility] 250 [place] [address] PCP - General Internal Medicine 01/28/19 Viktoriya Coats MD [address] [facility] 908 [place] [address] Referring Physician Obstetrics and Gynecology 09/06/21 09/12/23 Blane Sheppard Jr., DPM [address] [facility] 908 [place] [address] Referring Physician Podiatry 09/06/21 Luiz Londono MD [address] [facility] 204 [place] [address] Referring Physician Gastroenterology 09/06/21 Sri Doll, CREPE LAMINATOR OPERATOR [address] [facility] 200 [place], [place] [address] Nurse Practitioner Nurse Practitioner 09/13/23 documented as of this encounter
--- OUTSIDE RECORDS SUMMARY | 2024-08-18 10:59 | XMS_ITS | Encounter Summary ---
Author Organization [facility] Care Team Providers Care Car Tester Name Role Phone Brigette Hernandez MD Primary Care Provider + [phone] Viktoriya Coats MD Unavailable +[phone] Silver Martinez DPM, Gabriel Unavailable + [phone] Luiz Londono MD Unavailable + Sri Doll NP Unavailable Encounter Details Date Type Department Care Team (Latest Contact Info) Description 07/13/2016 Orders Only [facility] CLINCONV ProviderAndreas MD [address] [place] [address] Social History Tobacco Use Types Packs/Day Years Used Date Smoking Tobacco: Never Assessed Comments Unknown Sex and Gender Information Value Date Recorded Sex Assigned at Not on file Legal Sex Female 7:35 PM COST ACCOUNTANT Gender Identity Not on file Sexual Orientation Not on file documented as of this encounter Plan of Treatment Not on file documented as of this encounter Procedures Procedure Name Priority Date/Time Associated Diagnosis Comments SCAN - LABS 07/26/2016 12:00 AM COST ACCOUNTANT documented in this encounter Results * SCAN - LABS (07/26/2016 12:00 AM COST ACCOUNTANT) Narrative 07/26/2016 12:00 AM COST ACCOUNTANT Ordered by an unspecified provider. Historical Provider Final Res ult documented in this encounter Visit Diagnoses Not on filedocumented in this encounter Care Teams Car Tester Relationship Specialty Start Date End Date Brigette Hernandez MD [address] [place] [address] 250 [place] [address] PCP - General Internal Medicine 01/28/19 Viktoriya Coats MD [address] [address] Referring Physician Obstetrics and Gynecology 09/06/21 09/12/23 Blane Sheppard Jr., DPM [address] [facility] 908 [place] [address] Referring Physician Podiatry 09/06/21 Luiz Londono MD [address] [facility] 204 [place] [address] Referring Physician Gastroenterology 09/06/21 Sri Doll, PAINT ROLLER COVER MACHINE SETTER [address] [facility] 200 [place] [address] Nurse Practitioner Nurse Practitioner 09/13/23 documented as of this encounter
--- OUTSIDE RECORDS SUMMARY | 2024-08-18 10:59 | XMS_ITS | Encounter Summary ---
Author Organization [facility] Facility Care Team Providers Care Tax Processor Name Role Phone Brigette Hernandez MD Primary Care Provider + [phone] Viktoriya Coats MD Unavailable [phone] Silver Martinez DPM, Gabriel Unavailable + [phone] Luiz Londono MD Unavailable + Sri Doll NP Unavailable Encounter Details Date Type Department Care Team (Latest Contact Info) Description 01/04/2016 Orders Only [facility] CLINCONV ProviderAndreas MD [address] [place] [address] Social History Tobacco Use Types Packs/Day Years Used Date Smoking Tobacco: Never Assessed Comments Unknown Sex and Gender Information Value Date Recorded Sex Assigned at Not on file Legal Sex Female 7:35 PM FISH HATCHERY SUPERVISOR Gender Identity Not on file Sexual Orientation Not on file documented as of this encounter Plan of Treatment Not on file documented as of this encounter Procedures Procedure Name Priority Date/Time Associated Diagnosis Comments SCAN - LABS 01/14/2016 12:00 AM CDT documented in this encounter Results * SCAN - LABS (01/14/2016 12:00 AM CDT) Narrative 01/14/2016 12:00 AM CDT Ordered by an unspecified provider. Historical Provider Final Res ult documented in this encounter Visit Diagnoses Not on filedocumented in this encounter Care Teams Tax Processor Relationship Specialty Start Date End Date Brigette Hernandez MD 1418 [facility] 250 [place] [address] PCP - General Internal Medicine 01/28/19 Viktoriya Coats MD [address] [facility] 908 [place] [address] Referring Physician Obstetrics and Gynecology 09/06/21 09/12/23 Blane Sheppard Jr., DPM [address] [facility] 908 [place] [address] Referring Physician Podiatry 09/06/21 Luiz Londono MD [address] [facility] 204 [place] [address] Referring Physician Gastroenterology 09/06/21 Sri Doll, CENTRAL STERILE SUPPLY TECHNICIAN 20[address] [facility] 200 [place], [place] [id number] Nurse Practitioner Nurse Practitioner 09/13/23 documented as of this encounter
--- OUTSIDE RECORDS SUMMARY | 2024-08-18 10:59 | XMS_ITS | Encounter Summary ---
Author Organization [facility] Facility Care Team Providers Care Loading Manager Name Role Phone Brigette Hernandez MD Primary Care Provider + [phone] Viktoriya Coats MD Unavailable +[phone] Silver Martinez DPM, Gabriel Unavailable + [phone] Luiz Londono MD Unavailable + Sri Doll NP Unavailable Encounter Details Date Type Department Care Team (Latest Contact Info) Description 03/25/2015 Orders Only [facility] CLINCONV ProviderAndreas MD [address] [place] [address] Social History Tobacco Use Types Packs/Day Years Used Date Smoking Tobacco: Never Assessed Comments Unknown Sex and Gender Information Value Date Recorded Sex Assigned at Not on file Legal Sex Female 7:35 PM BALL RACKER Gender Identity Not on file Sexual Orientation [...] on filedocumented in this encounter Care Teams Loading Manager Relationship Specialty Start Date End Date Brigette Hernandez MD 1418 [facility] 250 [place] [address] PCP - General Internal Medicine 01/28/19 Viktoriya Coats MD [address] [facility] 908 [place] [address] Referring Physician Obstetrics and Gynecology 09/06/21 09/12/23 Blane Sheppard Jr., DPM [address] [facility] 908 [place] [address] Referring Physician Podiatry 09/06/21 Luiz Londono MD [address] [facility] 204 [place] [address] Referring Physician Gastroenterology 09/06/21 Sri Doll, SUPERVISOR PAPER TESTING [address] [facility] 200 [place], [place] [phone] Nurse Practitioner Nurse Practitioner 09/13/23 documented as of this encounter
--- OUTSIDE RECORDS SUMMARY | 2024-08-18 10:59 | XMS_ITS | Encounter Summary ---
Author Organization [facility] Care Team Providers Care Rivet Heater Gas Name Role Phone Brigette Hernandez MD Primary Care Provider + [phone] Viktoriya Coats MD Unavailable +[phone] Silver Martinez DPM, Gabriel Unavailable + [phone] Luiz Londono MD Unavailable + Sri Doll NP Unavailable Encounter Details Date Type Department Care Team (Latest Contact Info) Description 03/16/2016 Orders Only [facility] CLINCONV ProviderAndreas MD [address] [place] [address] Social History Tobacco Use Types Packs/Day Years Used Date Smoking Tobacco: Never Assessed Comments Unknown Sex and Gender Information Value Date Recorded Sex Assigned at Not on file Legal Sex Female 7:35 PM NEGATIVE CHECKER Gender Identity Not on file Sexual Orientation Not on file documented as of this encounter Plan of Treatment Not on file documented as of this encounter Procedures Procedure Name Priority Date/Time Associated Diagnosis Comments SCAN - LABS 04/17/2016 12:00 AM NEGATIVE CHECKER documented in this encounter Results * SCAN - LABS (04/17/2016 12:00 AM NEGATIVE CHECKER) Narrative 04/17/2016 12:00 AM NEGATIVE CHECKER Ordered by an unspecified provider. Historical Provider Final Res ult documented in this encounter Visit Diagnoses Not on filedocumented in this encounter Care Teams Rivet Heater Gas Relationship Specialty Start Date End Date Brigette Hernandez MD [address] [place] [address] 250 [place] [address] PCP - General Internal Medicine 01/28/19 Viktoriya Coats MD [address] [address] Referring Physician Obstetrics and Gynecology 09/06/21 09/12/23 Blane Sheppard Jr., DPM [address] [facility] 908 [place] [address] Referring Physician Podiatry 09/06/21 Luiz Londono MD [address] [facility] 204 [place] [address] Referring Physician Gastroenterology 09/06/21 Sri Doll, MANUAL EQUIPMENT MECHANIC [address] [facility] 200 [place] [address] Nurse Practitioner Nurse Practitioner 09/13/23 documented as of this encounter
--- OUTSIDE RECORDS SUMMARY | 2024-08-18 10:59 | XMS_ITS | Encounter Summary ---
Author Organization [facility] Care Team Providers Care Spray I Painter Name Role Phone rBigette Hernandez MD Primary Care Provider + [phone] Viktoriya Coats MD Unavailable +[phone] Silver Martinez DPM, Gabriel Unavailable + [phone] Luiz Londono MD Unavailable + Sri Doll NP Unavailable Encounter Details Date Type Department Care Team (Latest Contact Info) Description 07/26/2016 Orders Only [facility] CLINCONV ProviderAndreas MD [address] [place] [address] Social History Tobacco Use Types Packs/Day Years Used Date Smoking Tobacco: Never Assessed Comments Unknown Sex and Gender Information Value Date Recorded Sex Assigned at Not on file Legal Sex Female 7:35 PM SPEECH PATHOLOGY ASSISTANT Gender Identity Not on file Sexual Orientation Not on file documented as of this encounter Plan of Treatment Not on file documented as of this encounter Procedures Procedure Name Priority Date/Time Associated Diagnosis Comments COLONOSCOPY - SCAN 07/26/2016 12 :00 AM SPEECH PATHOLOGY ASSISTANT documented in this encounter Results * COLONOSCOPY - SCAN (07/26/2016 12:00 AM SPEECH PATHOLOGY ASSISTANT) Narrative 07/26/2016 12:00 AM SPEECH PATHOLOGY ASSISTANT Ordered by an unspecified provider. Historical Provider Final Res ult documented in this encounter Visit Diagnoses Not on filedocumented in this encounter Care Teams Spray I Painter Relationship Specialty Start Date End Date Brigette Hernandez MD [address] [place] [address] 250 [place] [address] PCP - General Internal Medicine 01/28/19 Viktoriya Coats MD [address] [address] Referring Physician Obstetrics and Gynecology 09/06/21 09/12/23 Blane Sheppard Jr., DPM [address] [facility] 908 [place] [address] Referring Physician Podiatry 09/06/21 Luiz Londono MD [address] [facility] 204 [place] [address] Referring Physician Gastroenterology 09/06/21 Sri Doll, MEDICAL ASSISTANT PRN 20[address] [facility] 200 [place] [address] Nurse Practitioner Nurse Practitioner 09/13/23 documented as of this encounter
[2024-08-18 11:05] LABS: Alanine Aminotransferase 41 U/L (6-35); Alkaline Phosphatase 55 U/L (38-126); Anion Gap 13 mmol/L (4-12); Aspartate Amino Transferase 34 U/L (14-36); Bilirubin,Total 0.7 mg/dL (0.2-1.3); Blood Urea Nitrogen 14 mg/dL (7-17); Calcium 10.6 mg/dL (8.4-10.2); Carbon Dioxide 25 mmol/L (22-30); Chloride 101 mmol/L (98-107); Cholesterol 179 mg/dL (0-200); Estimated Glomerular Filt Rate > 60; Glucose 90 mg/dL (65-110); HDL Direct 105 mg/dL; Potassium 4.1 mmol/L (3.4-5.0); Sodium 139 mmol/L (137-145); Triglycerides 89 mg/dL (<150)
[2024-08-18 11:18] LABS: Add Urine Microscopic? YES; Appearance Urine Cloudy (Clear); Bacteria Urine None Seen /hpf; Bilirubin Urine Negative (Negative); Blood Urine 3+ (Negative); Color Urine Yellow (Yellow); Glucose Urine UA Negative (Negative); Ketones Urine Trace mg/dL (Negative); LDL Cholesterol Direct 58 mg/dL; Leukocyte Esterase Ur Negative LEU/UL (Negative); Need Manual Microscopic Reviewed; Nitrate Urine Negative (Negative); Non Pathogenic Casts 0-2; Protein Urine Negative (Negative); RBC Urine 0-2 /hpf (0-2); Specific Grav Ur 1.011 (1.001-1.035); Squamous Epithelial Cell Urine Few /hpf (Few); Urobilinogen Urine 0.2 mg/dL (<2.0); WBC Urine 0-5 /hpf (0-3)
[2024-08-20 04:48] LABS: TSH QUEST 1.97 mIU/L (0.40-4.50)
== END 2024-08-18 09:44 | disposition home or self-care (01) ==
LOC: ANHLAB 09:47
PROVIDERS: PCP Internal Medicine; Visit Provider Internal Medicine
DX: E78.5 Hyperlipidemia, unspecified (principal); E03.9 Hypothyroidism, unspecified; I10 Essential (primary) hypertension
CPT/HCPCS: 36415; 80053; 80061; 81001; 83036; 84439; 84443; 85025

== ENCOUNTER 2024-09-11 12:39 | Outpatient (CLI) | payer OTHER, SELFPAY ==
--- OUTSIDE RECORDS SUMMARY | 2024-09-11 12:55 | XMS_ITS | Encounter Summary ---
Author Organization [facility] Facility Care Team Providers Care Animal Nutrition Teacher Name Role Phone Brigette Hernandez MD Primary Care Provider + [phone] Viktoriya Coats MD Unavailable +[phone] Silver Martinez DPM, Gabriel Unavailable + [phone] Luiz Londono MD Unavailable + Sri Doll NP Unavailable Sarah Santamaria MD Unavailable +[phone] Encounter Details Date Type Department Care Team (Latest Contact Info) Description 03/16/2016 Orders Only MMG CLINCONV ProviderAndreas MD [address] [place] [address] Social History Tobacco Use Types Packs/Day Years Used Date Smoking Tobacco: Never Assessed Comments Unknown Sex and Gender Information Value Date Recorded Sex Assigned at Not on file Legal Sex Female 7:35 PM DICE MAKER Gender Identity Not on file Sexual Orientation Not on file documented as of this encounter Plan of Treatment Not on file documented as of this encounter Procedures Procedure Name Priority Date/Time Associated Diagnosis Comments SCAN - LABS 04/17/2016 12:00 AM DICE MAKER documented in this encounter Results * SCAN - LABS (04/17/2016 12:00 AM DICE MAKER) Narrative 04/17/2016 12:00 AM DICE MAKER Ordered by an unspecified provider. us Historical Provider Final Res ult documented in this encounter Visit Diagnoses Not on filedocumented in this encounter Care Teams Animal Nutrition Teacher Relationship Specialty Start Date End Date Brigette Hernandez MD 1418 [facility] 250 [place] [address] PCP - General Internal Medicine 01/28/19 Viktoriya Coats MD [address] [facility] 908 [place] [address] Referring Physician Obstetrics and Gynecology 09/06/21 09/12/23 Blane Sheppard Jr., DPM [address] [facility] 908 [place], [place] [address] Referring Physician Podiatry 09/06/21 Luiz Londono MD [address] [facility] 204 GASTROENTEROLOGY [place], [place] [address] Referring Physician Gastroenterology 09/06/21 Sri Doll, COIN PURSE ASSEMBLER [address] [facility] 200 [place], [place] [address] Nurse Practitioner Nurse Practitioner 09/13/23 Sarah Santamaria MD [address] [facility] 200 [place] [address] Referring Physician Gynecology 09/11/24 documented as of this encounter
--- OUTSIDE RECORDS SUMMARY | 2024-09-11 12:55 | XMS_ITS | Encounter Summary ---
Author Organization [facility] Facility Care Team Providers Care Tobacco Drier Operator Name Role Phone Brigette Hernandez MD Primary Care Provider + [phone] Viktoriya Coats MD Unavailable +[phone] Silver Martinez DPM, Gabriel Unavailable + [phone] Luiz Londono MD Unavailable + Sri Doll NP Unavailable Sarah Santamaria MD Unavailable [phone] Encounter Details Date Type Department Care Team (Latest Contact Info) Description 07/07/2016 Orders Only [facility]G CLINCONV ProviderAndreas MD [address] [place] [address] Social History Tobacco Use Types Packs/Day Years Used Date Smoking Tobacco: Never Assessed Comments Unknown Sex and Gender Information Value Date Recorded Sex Assigned at Not on file Legal Sex Female 7:35 PM IT SOLUTIONS ARCHITECT Gender Identity Not on file Sexual Orientation Not on file documented as of this encounter Plan of Treatment Not on file documented as of this encounter Procedures Procedure Name Priority Date/Time Associated Diagnosis Comments SCAN - LABS 07/26/2016 12:00 AM IT SOLUTIONS ARCHITECT documented in this encounter Results * SCAN - LABS (07/26/2016 12:00 AM IT SOLUTIONS ARCHITECT) Narrative 07/26/2016 12:00 AM IT SOLUTIONS ARCHITECT Ordered by an unspecified provider. us Historical Provider Final Res ult documented in this encounter Visit Diagnoses Not on filedocumented in this encounter Care Teams Tobacco Drier Operator Relationship Specialty Start Date End Date Brigette Hernandez MD 1418 [facility] 250 [place] [address] PCP - General Internal Medicine 01/28/19 Viktoriya Coats MD [address] [facility] 908 [place] [address] Referring Physician Obstetrics and Gynecology 09/06/21 09/12/23 Blane Sheppard Jr., DPM [address] [facility] 908 [place], [place] [address] Referring Physician Podiatry 09/06/21 Luiz Londono MD [address] [facility] [address] GASTROENTEROLOGY [place], [place] [address] Referring Physician Gastroenterology 09/06/21 Sri Doll, LEAD MANUFACTURING TECHNICIAN [address] [facility] 200 [place], [place] [address] Nurse Practitioner Nurse Practitioner 09/13/23 Sarah Santamaria MD [address] [facility] 200 [place] [address] Referring Physician Gynecology 09/11/24 documented as of this encounter
--- OUTSIDE RECORDS SUMMARY | 2024-09-11 12:55 | XMS_ITS | Clinical Summary ---
Author Organization [facility] Address [address] [place] [address] Care Team Providers Care Customer Account Executive Name Role Phone Unavailable Primary Care Provider [...] 02/22/2012 COVID-19 Vaccine (2023-2 5 season) 2024 RSV Immunization or 60+ Years (1 - 1-dose 75+ series) 2037 Meningococcal B Vaccine Aged Out No l onger eligible based on patient's age to complete this topic Meningococcal Vaccine Aged Out No gillian ana eligible based on patient's age to complete this topic Pneumococcal Vaccine: Pediat rics (0 to 5 Years) and At-Risk Patients (6 to 49 Years) Aged Out No longer eligible b ased on patient's age to complete this topic RSV Immunizations Under 20 Months Aged Out No longer eligible based on patient's age to complete this topic
--- OUTSIDE RECORDS SUMMARY | 2024-09-11 12:55 | XMS_ITS | Encounter Summary ---
Author Organization [facility] Facility Care Team Providers Care Cop Name Role Phone Brigette Hernandez MD Primary Care Provider + [phone] Viktoriya Coats MD Unavailable [phone] Silver Martinez DPM, Gabriel Unavailable + [phone] Luiz Londono MD Unavailable + Sri Doll NP Unavailable Sarah Santamaria MD Unavailable +[phone] Encounter Details Date Type Department Care Team (Latest Contact Info) Description 07/13/2016 Orders Only [facility] CLINCONV ProviderAndreas MD [address] [place] [address] Social History Tobacco Use Types Packs/Day Years Used Date Smoking Tobacco: Never Assessed Comments Unknown Sex and Gender Information Value Date Recorded Sex Assigned at Not on file Legal Sex Female 7:35 PM CALLISTHENICS INSTRUCTOR Gender Identity Not on file Sexual Orientation Not on file documented as of this encounter Plan of Treatment Not on file documented as of this encounter Procedures Procedure Name Priority Date/Time Associated Diagnosis Comments SCAN - LABS 07/26/2016 12:00 AM CALLISTHENICS INSTRUCTOR documented in this encounter Results * SCAN - LABS (07/26/2016 12:00 AM CALLISTHENICS INSTRUCTOR) Narrative 07/26/2016 12:00 AM CALLISTHENICS INSTRUCTOR Ordered by an unspecified provider. us Historical Provider Final Res ult documented in this encounter Visit Diagnoses Not on filedocumented in this encounter Care Teams Cop Relationship Specialty Start Date End Date Brigette Hernandez MD [address] [facility] [address] [place] [address] PCP - General Internal Medicine 01/28/19 Viktoriya Coats MD [address] [facility] [address] [place] [address] Referring Physician Obstetrics and Gynecology 09/06/21 09/12/23 Blane Sheppard Jr., DPM [address] [facility] [address] [place], [place] [phone] Referring Physician Podiatry 09/06/21 Luiz Londono MD [address] GASTROENTEROLOGY [place], [place] [phone] Referring Physician Gastroenterology 09/06/21 Sir Doll, SOLE PAINTER [address] [facility] [address] [place], [place] [phone] Nurse Practitioner Nurse Practitioner 09/13/23 Sarah Santamaria MD [address] [facility] [address] [place] [address] Referring Physician Gynecology 09/11/24 documented as of this encounter
--- OUTSIDE RECORDS SUMMARY | 2024-09-11 12:55 | XMS_ITS | Referral Summary ---
Author Organization [facility] Address [address] [place] [address] Care Team Providers Care Store Sales Consultant Name Role Phone Brigette Hernandez MD Primary Care Provider + [phone] Silver Martinez DPM, Gabriel Unavailable + [phone] Luiz Londono MD Unavailable + Sri Doll NP Unavailable Sarah Santamaria MD Unavailable [phone] Encounters Date Type Department Care Team Description 09/11/2024 9:00 AM CDT Office Visit [facility] Primary Care [address] [place] [id number] Brigette Hernandez MD Annual physical exam (Primary Dx); Acquired hypothyroidism; Dyslipidemia; Essential (primary) hypertension; Abnormal vaginal bleeding; BMI 27.0-27.9,adult; Serum calcium elevated from Last 3 Months Allergies Active Allergy Reactions Criticality Noted Date Comments Amoxicillin Rash Medium 01/08/2019 rash Amoxicillin-Pot Clavulanate Rash Medium 01/09/20 19 rash clavulanic acid Medications fluticasone propionate (FLONASE) 50 mcg/actuation nasal spray daily Active magnesium gluconate 200 mg tablet 1 tablet (200 mg total) daily Active coenzyme [id number] 100-5 mg-unit capsule 100 mg daily Active ergocalciferol, vitamin D2, (VITAMIN D2 ORAL) Take by mouth Active estradiol-noreth indrone (ACTIVELLA) 0.5-0.1 mg per tablet Take 1 tablet by mouth daily 4 Active SEMAGLUTIDE, WEIGHT LOSS, SUBQ Inject 5 mg under the skin 30 units injected sub q every 7 days Active levothyroxine (SYNTHROID) 50 mcg tablet Take 1 tablet (50 mcg total) by mouth daily 90 tablet 1 4 Active atorvastatin (LIPITOR) 10 mg tabletIndication s:Dyslipidemia Take 1 tablet by mouth once daily 90 tablet 5 Active terbinafine (LamiSIL) 250 mg tablet TAKE 1 TABLET BY MOUTH ONCE DAILY FOR 7 DAYS ONCE A MONTH 21 tablet 5 Active olmesartan (BENICAR) 5 mg tabletIndication s:Essential (primary) hypertension Take 1 tablet (5 mg total) by mouth daily 90 tablet 3 4 09/12/19 25 Discontinu ed(Therapy completed) Active Problems Problem Noted Date Diagnosed Date Abnormal vaginal bleeding 09/11/2024 Assessment & Plan (09/11/2024 9:21 AM CDT): Under the care of GENERATION MANAGER Dr Santamaria will be having a hysteroscopy and endometrial bx BMI 27.0-27.9,adult 09/11/2024 Assessment & Plan (09/11/2024 9:29 AM CDT): Improving on GLP1 therapy Cont wt loss Goal wt 135 lbs Serum calcium elevated 09/11/2024 Assessment & Plan (09/11/2024 9:31 AM CDT): Trending up Check PTH and ionized calcium Not on diuretic Not symptomatic at this time Rule out prim Hyperparathyroidism At risk for bone loss Family history of colon cancer in mother 024 Overview (09/11/2024): Mother had colon cancer age 62 Ff up q 5 yrs, done in 04/2204 Dr Branch Assessment & Plan (09/11/2024 9:32 AM CDT): Mother had colon cancer age 62 Ff up q 5 yrs, done in 04/2204 Dr Branch Annual physical exam 05/30/2020 Assessment & Plan [...] and establishing or updating healthcare power of collections attorney document and providing our office with [...] and establishing or updating healthcare power of collections attorney document and providing our office with [...] and establishing or updating healthcare power of collections attorney document and providing our office with a copy. Assessment & Plan (05/31/2020 4:03 PM THERAPIST): Wear sunscreen with SPF over 50 while [...] please contact the office. I strongly encourage Verioushart sign ups. It can facilitate communication flow. Please contact the office for instructions on signing up. Consider getting Shingrix (shingles vaccine). This is a 2-shot series with each injection given 2-6 months apart. You can obtain the vaccine at most major pharmacies without a prescription History of COVID-19 03/29/2020 Assessment & Plan (05/31/2020 4:13 PM THERAPIST): Resolved, took 2 mos for the pain the leg and left buttocks area, now resolved No current sob Dyslipidemia 08/06/2018 Assessment & Plan (09/11/2024 9:23 AM CDT): At goal cont atorvastatin 10 mg daily Controlled. Assessment & Plan (03/04/2024 9:43 AM CDT): [...] repeated Assessment & Plan (05/31/2020 4:03 PM THERAPIST): Stable on statin. Ff low chol diet Assessment & Plan (04/01/2019 9:45 PM THERAPIST): Cont atorvastatin at current dose, last july cho panel was in good range. LDL was 95 Repeat chol panel in 6mos Essential (primary) hypertension 09/30/2015 Assessment & Plan (09/11/2024 9:24 AM CDT): Likely resolved BP been low despite low dose olmesartan and with signif intentional wt loss bp is now normal or too low Stop the olmesartan Montior Assessment & Plan (03/04/2024 9:37 AM CDT): [...] diet Assessment & Plan (05/31/2020 4:03 PM THERAPIST): BP is controlled, cont current dose Ff low sodium diet Assessment & Plan (04/01/2019 9:44 PM THERAPIST): Follow low sodium DASH Diet. Exercise regularly for CV health and weight loss. Achieve or Maintain normal BMI/Weight. Take medications as prescribed. Report if having porblems with the medication or if develops Chest pains. Monitor BP occly and record. Report if BP consistently over 160/90 or under 90/60 and dizzy and LH. BP is controlled and stable. Acquired hypothyroidism 09/30/2015 Assessment & Plan (09/11/2024 9:33 AM CDT): TSH normal Cont current rx medication dose is euthyroid Report if has frequent palpitations, irreg heart beat or sudden changes in weight. Report if develops problem swallowing or hoarseness Assessment & Plan (03/04/2024 9:44 AM CDT): [...] order Assessment & Plan (05/31/2020 4:24 PM THERAPIST): Cont current dose is euthyroid Report if has frequent palpitations, irreg heart beat or sudden changes in weight. Report if develops problem swallowing or hoarseness Assessment & Plan (04/01/2019 9:46 PM THERAPIST): Cont current 75mcg dose pending TSH level [...] 04/2024 Assessment & Plan (05/31/2020 4:08 PM THERAPIST): Colonoscopy- Numerous diverticuli throughout entire colon and small polyp cecum (Dr. Dailey) 09/11/2014 05/07/2020 DR Salgado, 5 polyps removed, diverticuli and int hemorrhoids on a 4 yr ff up now Assessment & Plan (04/01/2019 9:50 PM THERAPIST): Colonoscopy due 08/2019 Resolved Problems Problem Noted [...] you have a drink containing alc ohol? 2-3 times a week 09/11/2024 Q2: How many drinks containi ng alcohol do you have on a typical day when you are drinking? 1 or 2 09/11/2024 Q3: How often do you have si x or more drinks on one occasion? Never 09/11/2024 PHQ-2 Answer Date Recorded PHQ-2 Total Score (If total score is 3 or more points, staff should administer the PHQ-9) 0 09/11/2024 PHQ-9 Answer Date Recorded PHQ-9 Total Score 0 09/11/2024 Comments Unknown Sex and Gender Information Value Date Recorded Sex Assigned at Not on file Legal Sex Female 7:35 PM THERAPIST Gender Identity Not on file Sexual Orientation Not on file Last Filed Vital Signs Vital Sign Reading Time Taken Comments Blood Pressure 102/60 09/11/2024 9:02 AM CDT Pulse 79 09/11/2024 9:02 AM CDT Temperature 36.8 C (98.2 F) 09/11/2024 9:02 AM CDT Respiratory Rate - - Oxygen Saturation 99% 09/11/2024 9:02 AM CDT Inhaled Oxygen Concentration - - Weight 68.2 kg (150 lb 6.4 oz) 09/11/2024 9:02 A M CDT Height 157.5 cm (5' 2 ) 09/11/2024 9:02 AM CDT Body Mass Index 27.51 09/11/2024 9:02 AM CDT Plan of Treatment Not on file Procedures Procedure Name Priority Date/Time Associated Diagnosis Comments COLONOSCOPY Routine 05/09/2024 MAMMOGRAPHY Routine 10/04/2023 HEPATITIS C SCREENING Routine 10/05/2022 PAP SMEAR WITH HPV Routine 03/16/2020 from Last 3 Months or Most Recently Relevant to Health Maintenance Results * COLONOSCOPY (05/09/2024) Scribed Colonoscopy Normal [facility] Provider HEALTH MAINTENANCE Final Result * MAMMOGRAPHY (10/04/2023) Mammography Normal [facility] Provider HEALTH MAINTENANCE Final Result * HEPATITIS C SCREENING (10/05/2022) SCRIBED HCV ab NEGATIVE [facility] Provider HEALTH MAINTENANCE Edited Result - Final * PAP SMEAR WITH HPV (03/16/2020) [facility] Provider HEALTH MAINTENANCE Final Result from Last 3 Months or Most Recently Relevant to Health Maintenance Insurance Care Teams Store Sales Consultant Relationship Specialty Start Date End Date Brigette Hernandez MD [address] [place] [id number] PCP - General Internal Medicine 01/28/19 Blane Sheppard Jr., DPM [address] [place] [address] Referring Physician Podiatry 09/06/21 Luiz Londono MD [address] [place] [address] Referring Physician Gastroenterology 09/06/21 Sri Doll, MAAME [address] [place] [address] Nurse Practitioner Nurse Practitioner 09/13/23 Sarah Santamaria MD [address] [place] [address] Referring Physician Gynecology 09/11/24
--- OUTSIDE RECORDS SUMMARY | 2024-09-11 12:55 | XMS_ITS | Encounter Summary ---
Author Organization [facility] Facility Care Team Providers Care Seed Expert Name Role Phone Brigette Hernandez MD Primary Care Provider + [phone] Viktoriya Coats MD Unavailable [phone] Silver Martinez DPM, Gabriel Unavailable + [phone] Luiz Londono MD Unavailable + Sri Doll NP Unavailable Sarah Santamaria MD Unavailable [phone] Encounter Details Date Type Department Care Team (Latest Contact Info) Description 01/02/2018 Orders Only [facility] CLINCONV ProviderAndreas MD [address] [place] [address] Social History Tobacco Use Types Packs/Day Years Used Date Smoking Tobacco: Never Assessed Comments Unknown Sex and Gender Information Value Date Recorded Sex Assigned at Not on file Legal Sex 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 us Historical Provider Final Res ult documented in this encounter Visit Diagnoses Not on filedocumented in this encounter Care Teams Seed Expert Relationship Specialty Start Date End Date Brigette Hernandez MD [address] [facility] [address] [place] [address] PCP - General Internal Medicine 01/28/19 Viktoriya Coats MD [address] [facility] [address] [place] [address] Referring Physician Obstetrics and Gynecology 09/06/21 09/12/23 Blane Sheppard Jr., DPM [address] [facility] [address] [place], [place] [phone] Referring Physician Podiatry 09/06/21 Luiz Londono MD [address] GASTROENTEROLOGY [place], [place] [phone] Referring Physician Gastroenterology 09/06/21 Sri Doll, DISH ROOM WORKER [address] [facility] [address] [place] [address] Nurse Practitioner Nurse Practitioner 09/13/23 Sarah Santamaria MD [address] [facility] [address] [place] [address] Referring Physician Gynecology 09/11/24 documented as of this encounter
--- OUTSIDE RECORDS SUMMARY | 2024-09-11 12:55 | XMS_ITS | Encounter Summary ---
Author Organization [facility] Facility Care Team Providers Care Contact Lens Blocker And Cutter Name Role Phone Brigette Hernandez MD Primary Care Provider + [phone] Viktoriya Coats MD Unavailable [phone] Silver Martinez DPM, Gabriel Unavailable + [phone] Luiz Londono MD Unavailable + Sri Doll NP Unavailable Sarah Santamaria MD Unavailable [phone] Encounter Details Date Type Department Care Team (Latest Contact Info) Description 01/15/2017 Orders Only [facility] CLINCONV ProviderAndreas MD [address] [place] [address] Social History Tobacco Use Types Packs/Day Years Used Date Smoking Tobacco: Never Assessed Comments Unknown Sex and Gender Information Value Date Recorded Sex Assigned at Not on file 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 Gender Identity Not on file Sexual [...] on filedocumented in this encounter Care Teams Contact Lens Blocker And Cutter Relationship Specialty Start Date End Date Brigette Hernandez MD [address] [facility] [address] [place] [address] PCP - General Internal Medicine 01/28/19 Viktoriya Coats MD [address] [facility] [address] [place] [address] Referring Physician Obstetrics and Gynecology 09/06/21 09/12/23 Blane Sheppard Jr., DPM [address] [facility] [address] [place], [place] [phone] Referring Physician Podiatry 09/06/21 Luiz Londono MD [address] GASTROENTEROLOGY [place], [place] [phone] Referring Physician Gastroenterology 09/06/21 Sri Doll, INSURANCE CLERK [address] [facility] [address] [place] [address] Nurse Practitioner Nurse Practitioner 09/13/23 Sarah Santamaria MD [address] [facility] [address] [place] [address] Referring Physician Gynecology 09/11/24 documented as of this encounter
--- OUTSIDE RECORDS SUMMARY | 2024-09-11 12:55 | XMS_ITS | Encounter Summary ---
Author Organization [facility] Facility Care Team Providers Care Database Marketing Analyst Name Role Phone Brigette Hernandez MD Primary Care Provider + [phone] Viktoriya Coats MD Unavailable [phone] Silver Martinez DPM, Gabriel Unavailable + [phone] Luiz Londono MD Unavailable + Sri Doll NP Unavailable Sarah Santamaria MD Unavailable [phone] Encounter Details Date Type Department Care Team (Latest Contact Info) Description 01/04/2016 Orders Only [facility] CLINCONV ProviderAndreas MD [address] [place] [address] Social History Tobacco Use Types Packs/Day Years Used Date Smoking Tobacco: Never Assessed Comments Unknown Sex and Gender Information Value Date Recorded Sex Assigned at Not on file Legal 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 [address] [place] [address] PCP - General Internal Medicine 01/28/19 Viktoriya Coats MD [address] [facility] [address] [place] [address] Referring Physician Obstetrics and Gynecology 09/06/21 09/12/23 Blane Sheppard Jr., DPM [address] [facility] [address] [place], [place] [phone] Referring Physician Podiatry 09/06/21 Luiz Londono MD [address] GASTROENTEROLOGY [place], [place] [phone] Referring Physician Gastroenterology 09/06/21 Sri Doll, PHONE REPRESENTATIVE [address] [facility] [address] [place] [address] Nurse Practitioner Nurse Practitioner 09/13/23 Sarah Santamaria MD [address] [facility] [address] [place] [address] Referring Physician Gynecology 09/11/24 documented as of this encounter
--- OUTSIDE RECORDS SUMMARY | 2024-09-11 12:55 | XMS_ITS | Encounter Summary ---
Author Organization [facility] Healthcare Address [address] [place] [address] Care Team Providers Care Computer Information Systems Instructor Name Role Phone Brigette Hernandez MD Primary Care Provider [phone] Silver Martinez DPM, Gabriel Unavailable [phone] Luiz Londono MD Unavailable + Sri Doll NP Unavailable Sarah Santamaria MD Unavailable [phone] Reason for Visit * Reason Comments Annual Exam Encounter Details Date Type Department Care Team (Late st Contact Info) Description 09/11/2024 9:00 AM CDT Office Visit [facility] Primary Care [address] [place] [phone] Brigette Hernandez MD [address] [place] [phone] Annual physical exam (Primary Dx); Acquired hypothyroidism; Dyslipidemia; Essential (primary) hypertension; Abnormal vaginal bleeding; BMI 27.0-27.9,adult; Serum calcium elevated Social History Tobacco Use Types Packs/Day Years [...] on file Legal Sex Female 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 2-3 times a week 09/11/2024 9:02 AM YVONT Ildefonso Yu MA Q2: How many drinks containing alcohol do you have on a typical day when you are drinking? 1 or 2 09/11/2024 9:02 AM YVONT Ildefonso Yu MA Q3: How often do you have six or more drinks on one occasion? Never 09/11/2024 9:02 AM YVONT Ildefonso Yu MA documented as of this encounter Progress Notes * Brigette Hernandez MD - 09/11/2024 9:00 AM CDT Images from the original note were not included. Patient ID: Eva Forte is a 64 y.o. female. This patient has verbally consented to recording this visit in order to utilize AI technology in generating this note. Chief Complaint Chief Complaint Patient presents with Annual Exam 64-YEAR-OLD FEMALE HERE FOR ANNUAL PHYSICAL AND FOR FOLLOW-UP ON HTN, HLD AND HYPOTHYROIDISM Intentionally working on weight loss on GLP one therapy Blood pressure has been low and has been dizzy and lightheaded She stopped taking olmesartan for a few days and noticed the blood pressure was okay Today she took her olmesartan in her blood pressure is low History of Present Illness Eva Forte is a 64 year old female who presents for an annual physical exam and follow-up on hypertension, cholesterol, and hypothyroidism. Her blood pressure has been low recently, which she attributes to weight loss. She has lost approximately 15 pounds since last year, now weighing 149 pounds. Her blood pressure was 120/84 mmHg after not taking her medication for six days due to a disrupted routine. She is currently on olmesartan 5 mg, which she took today, resulting in a blood pressure of 102/60 mmHg. She has experienced a coupleof dizzy spells. Regarding her thyroid condition, her recent labs show a TSH level of 1.97, indicating stable thyroid function. She is currently taking levothyroxine 50 mcg daily. No symptoms such as palpitations or trouble swallowing. Her cholesterol levels are well-controlled with atorvastatin 10 mg daily. Recent labs show a total cholesterol of 179 mg/dL, LDL of 58 mg/dL, HDL of 105 mg/dL, and triglycerides of 89 mg/dL. Her A1c has improved from 5.8% to 5.0%. She has a history of high calcium levels, with recent labs showing a calcium level of 10.6 mg/dL. She does not take calcium supplements or diuretics. She has not been worked up for hyperparathyroidism yet. She is under the care of Dr. Sarah Frias for postmenopausal bleeding and is scheduled for a hysteroscopy and endometrial biopsy on September 22. She had a clear Pap smear in March. An ultrasound did not show a thickened endometrial lining. She mentions a family history of cancer, with her mother being diagnosed at age 62. She had a colonoscopy in April 2024, which showed a 3 mm hyperplastic polyp in the transverse colon and some diverticulosis. The pathology report was normal, and she was advised to have a follow-up in ten years. Patient Care Team: Brigette Hernandez MD as PCP - General (Internal Medicine) Blane Sheppard Jr., DPM as Referring Physician (Podiatry) Luiz Londono MD as Referring Physician (Gastroenterology) Sri Doll NP as Nurse Practitioner (Nurse Practitioner) Sarah Santamaria MD as Referring Physician (Gynecology) Depression Screen: PHQ Screening Over the last 2 weeks, how often have you been bothered by any of the following problems? Little Interest or Pleasure in Doing Things: Not at all Feeling Down, Depressed, or Hopeless: Not at all PHQ-2 Total Score (If total score is 3 or more points, staff should administer the PHQ-9): 0 Over the past 2 weeks, how often have you been bothered by any of the following problems? Little Interest or Pleasure in Doing Things: Not at all Feeling Down, Depressed, or Hopeless: Not at all PHQ-2 Total Score (If total score is 3 or more points, staff should administer the PHQ-9): 0 Trouble Falling or Staying Asleep, or Sleeping too Much: Not at all Feeling Tired or Having Little Energy: Not at all Poor Appetite or Overeating: Not at all Feeling Bad About Yourself - or That You are a Failure or Have Let Yourself or Your Family Down: Not at all Trouble Concentrating on Things, Such as Reading the Newspaper or Watching Television: Not at all Moving or Speaking so Slowly That Other People Could Have Noticed, or the Opposite - Being so Fidgety or Restless That You Have Been Moving Around a lot More Than Usual: Not at all Thoughts That You Would be Better off , or of Hurting Yourself in Some Way: Not at all PHQ-9 Total Score: 0 If you checked off any problems, how difficult have these problems made it for you to do your work,take care of things at home, or get along with other people?: Not difficult at all Vitals: Vitals BP 102/60 (BP Location: Left arm, Patient Position: Sitting) Pulse 79 Temp 36.8 ??C (98.2 ??F) (Temporal) Ht 157.5 cm (5' 2 ) Wt 68.2 kg (150 lb 6.4 oz) SpO2 99% BMI 27.51 kg/m?? Body mass index is 27.51 kg/m??. Physical Exam Physical Exam VITALS: BP- 102/60 MEASUREMENTS: Weight- 149 lbs. Physical Exam Vitals and nursing note reviewed. Constitutional: General: She is not in acute distress. Appearance: Normal appearance. She is well-developed. HENT: Head: Normocephalic and atraumatic. Right Ear: Tympanic membrane normal. Left Ear: Tympanic membrane normal. Nose: Nose normal. Eyes: Conjunctiva/sclera: Conjunctivae normal. Pupils: Pupils are equal, round, and reactive to light. Neck: Thyroid: No thyromegaly. Vascular: No carotid bruit. Cardiovascular: Rate and Rhythm: Normal rate and regular rhythm. Pulses: Normal pulses. Heart sounds: Normal heart sounds. No murmur heard. Pulmonary: Effort: Pulmonary effort is normal. Breath sounds: Normal breath sounds. Abdominal: General: Bowel sounds are normal. Palpations: Abdomen is soft. Tenderness: There is no abdominal tenderness. Musculoskeletal: General: Normal range of motion. Cervical back: Normal range of motion and neck supple. Right lower leg: No edema. Left lower leg: No edema. Lymphadenopathy: Cervical: No cervical adenopathy. Skin: General: Skin is warm and dry. Neurological: General: No focal deficit present. Mental Status: She is alert and oriented to person, place, and time. Cranial Nerves: No cranial nerve deficit. Psychiatric: Behavior: Behavior normal. Judgment: Judgment normal. Assessment & Plan Annual Physical Examination Routine annual examination to manage health and chronic conditions. - Conduct comprehensive physical examination. - Review and discuss laboratory results. Postmenopausal bleeding Under evaluation by ROLL EDGE MACHINE OPERATOR. Scheduled for hysteroscopy and endometrial biopsy. Discussed potential causes including uterine cancer. - Proceed with hysteroscopy and endometrial biopsy on September 22, 2024. - Follow up with ROLL EDGE MACHINE OPERATOR for results and further management. Essential hypertension Blood pressure low due to weight loss. Olmesartan discontinued. Informed her of potential dizzinessif blood pressure drops. - Discontinue olmesartan. - Monitor blood pressure regularly. - Restart olmesartan if blood pressure consistently rises to 130/80 mmHg. Dyslipidemia Cholesterol levels at goal with atorvastatin. Provides cardiovascular protection. - Continue atorvastatin 10 mg daily. Acquired hypothyroidism TSH indicates good control. No changes needed. - Continue levothyroxine 50 mcg daily. - Monitor TSH levels regularly. Hypercalcemia Calcium slightly elevated. No symptoms. Discussed potential causes and risks. Plan to evaluate parathyroid function. - Order PTH intact and ionized calcium tests. - Consider parathyroid scan and 24-hour urine calcium collection if indicated. Colorectal cancer screening Recent colonoscopy showed benign hyperplastic polyp. Family history of colorectal cancer. Decision to repeat colonoscopy in 5 years. - Schedule repeat colonoscopy in 5 years. - Monitor for any changes in bowel patterns. General Health Maintenance Managing weight and exercising. Discussed regular eye exams and bone density monitoring. - Encourage regular exercise and weight management. - Schedule eye examination. - Discuss bone density monitoring with healthcare provider. Follow-up Plan for follow-up in 6 months to reassess conditions. Discussed importance of monitoring thyroid function. - Schedule follow-up appointment in 6 months. - Order routine labs in 6 months, including TSH and comprehensive metabolic panel. Diagnoses and all orders for this visit: Annual physical exam (Primary) Acquired hypothyroidism Assessment & Plan: TSH normal Cont current rx medication dose is euthyroid Report if has frequent palpitations, irreg heart beat or sudden changes in weight. Report if develops problem swallowing or hoarseness Dyslipidemia Assessment & Plan: At goal cont atorvastatin 10 mg daily Controlled. Essential (primary) hypertension Assessment & Plan: Likely resolved BP been low despite low dose olmesartan and with signif intentional wt loss bp is now normal or toolow Stop the olmesartan Montior Abnormal vaginal bleeding Assessment & Plan: Under the care of ROLL EDGE MACHINE OPERATOR Dr Santamaria will be having a hysteroscopy and endometrial bx BMI 27.0-27.9,adult Assessment & Plan: Improving on GLP1 therapy Cont wt loss Goal wt 135 lbs Serum calcium elevated Assessment & Plan: Trending up Check PTH and ionized calcium Not on diuretic Not symptomatic at this time Rule out prim Hyperparathyroidism At risk for bone loss Return in about 6 months (around 03/13/2025) for CHOL-THYROID. Labs soon: PTH intact, ionized calcium level for elev calcium level Get pathology report from [facility] re polyp removed by Dr Branch My total encounte time on today's visit was 10 Minutes on preventive exam and 30 Minutes on currentworsening elev calcium level symptoms and chronic conditions and maintenance which was spent in theactivities documented in the visit note. This time included chart prep, conducting medical Hx, reviewing past medical history and chronic conditions, clinical documentation, discussing illness, signsand symptoms, possible necessary testing and results, writing orders and coordination of care re the illness and ff up visit. This time does not include time spent in any separately reportable services documented in this encounter Miscellaneous Notes * Assessment & Plan Note - Brigette Hernandez MD - 09/11/2024 9:33 AM CDT Associated Problem(s): Acquired hypothyroidism TSH normal Cont current rx medication dose is euthyroid Report if has frequent palpitations, irreg heart beat or sudden changes in weight. Report if develops problem swallowing or hoarseness * Assessment & Plan Note - Brigette Hernandez MD - 09/11/2024 9:32 AM CDT Associated Problem(s): Family history of colon cancer in mother Mother had colon cancer age 62 Ff up q 5 yrs, done in 04/2204 Dr Branch * Assessment & Plan Note - Brigette Hernandez MD - 09/11/2024 9:31 AM CDT Associated Problem(s): Serum calcium elevated Trending up Check PTH and ionized calcium Not on diuretic Not symptomatic at this time Rule out prim Hyperparathyroidism At risk for bone loss * Assessment & Plan Note - Brigette Hernandez MD - 09/11/2024 9:29 AM CDT Associated Problem(s): BMI 27.0-27.9,adult Improving on GLP1 therapy Cont wt loss Goal wt 135 lbs * Assessment & Plan Note - Brigette Hernandez MD - 09/11/2024 9:24 AM CDT Associated Problem(s): Essential (primary) hypertension Likely resolved BP been low despite low dose olmesartan and with signif intentional wt loss bp is now normal or toolow Stop the olmesartan Montior * Assessment & Plan Note - Brigette Hernandez MD - 09/11/2024 9:23 AM CDT Associated Problem(s): Dyslipidemia At goal cont atorvastatin 10 mg daily Controlled. * Assessment & Plan Note - Brigette Hernandez MD - 09/11/2024 9:21 AM CDT Associated Problem(s): Abnormal vaginal bleeding Under the care of ROLL EDGE MACHINE OPERATOR Dr Santamaria will be having a hysteroscopy and endometrial bx * Addendum Note - Nano Mendoza MA - 09/11/2024 9:00 AM CDTAddended by: NANO MENDOZA on: 09/11/2024 09:44 AM Modules accepted: Orders documented in this encounter Plan of Treatment Scheduled Orders Name Type Priority Associated Diagnoses Orde r Schedule PTH Lab Routine Serum calcium elevated Expected: 09/11/2024, Expires: 09/11/2025 Calcium, ionized Lab Routine Serum calcium elevated Expected: 09/11/2024, Expires: 09/11/2025 Thyroid Function [facility] Lab Routine Acquired hypothyroidism Expected: 03/13/2025, Expires: 09/11/2025 Comprehensive metabolic panel Lab Routine Annual physical exam Essential (primary) hypertension Expected: 03/13/2025, Expires: 09/11/2025 Vitamin D 25 hydroxy Lab Routine Annual physical exam Essential (primary) hypertension Expected: 03/13/2025, Expires: 09/11/2025 documented as of this encounter Visit Diagnoses Diagnosis Annual physical exam- Primary Routine general medical examination at a health care facility Acquired hypothyroidism Unspecified hypothyroidism Dyslipidemia Other and unspecified hyperlipidemia Essential (primary) hypertension Unspecified essential hypertension Abnormal vaginal bleeding Other specified noninflammatory disorder of vagina BMI 27.0-27.9,adult Serum calcium elevated Hypercalcemia documented in this encounter Discontinued Medications Medication Sig Discontinue Reason Start Date End Da te olmesartan (BENICAR) 5 mg tabletIndications:Essenti al (primary) hypertension Take 1 tablet (5 mg total) by mouth daily Therapy completed 03/04/2024 09/11/2024 documented as of this encounter Care Teams Computer Information Systems Instructor Relationship Specialty Start Date End Date Brigette Hernandez MD [address] [place] [id number] PCP - General Internal Medicine 01/28/19 Blane Sheppard Jr., DPM [address] [place] [phone] Referring Physician Podiatry 09/06/21 Luiz Londono MD [address] [place] [address] Referring Physician Gastroenterology 09/06/21 Sri Doll NP [address] [place] [address] Nurse Practitioner Nurse Practitioner 09/13/23 Sarah Santamaria MD [address] [place] [address] Referring Physician Gynecology 09/11/24 documented as of this encounter
--- OUTSIDE RECORDS SUMMARY | 2024-09-11 12:55 | XMS_ITS | Clinical Summary ---
Author Organization [facility] Address [address] [place] [address] Care Team Providers Care Superior Court Justice Name Role Phone Brigette Hernandez MD Primary Care Provider + [phone] Silver Martinez DPM, Gabriel Unavailable [phone] Luiz Londono MD Unavailable + Sri Doll NP Unavailable Sarah Santamaria MD Unavailable [phone] Allergies Active Allergy Reactions Criticality Noted Date Comments Amoxicillin Rash Medium 01/08/2019 rash Amoxicillin-Pot Clavulanate Rash Medium 01/09/20 19 rash clavulanic acid Medications fluticasone propionate (FLONASE) 50 mcg/actuation nasal spray daily Active magnesium gluconate 200 mg tablet 1 tablet (200 mg total) daily Active coenzyme R01-[id number] E 100-5 mg-unit capsule 100 mg daily [...] 9:21 AM CDT): Under the care of HEALTHCARE ECONOMICS MANAGER Dr Santamaria will be having a [...] and establishing or updating healthcare power of business attorney document and providing our office with [...] and establishing or updating healthcare power of business attorney document and providing our office with [...] and establishing or updating healthcare power of business attorney document and providing our office with a copy. Assessment & Plan (05/31/2020 4:03 PM RADIOGRAPHIC TECHNOLOGIST): Wear sunscreen with SPF over 50 while [...] 03/29/2020 Assessment & Plan (05/31/2020 4:13 PM RADIOGRAPHIC TECHNOLOGIST): Resolved, took 2 mos for the pain [...] repeated Assessment & Plan (05/31/2020 4:03 PM RADIOGRAPHIC TECHNOLOGIST): Stable on statin. Ff low chol diet Assessment & Plan (04/01/2019 9:45 PM RADIOGRAPHIC TECHNOLOGIST): Cont atorvastatin at current dose, last july [...] diet Assessment & Plan (05/31/2020 4:03 PM RADIOGRAPHIC TECHNOLOGIST): BP is controlled, cont current dose Ff low sodium diet Assessment & Plan (04/01/2019 9:44 PM RADIOGRAPHIC TECHNOLOGIST): Follow low sodium DASH Diet. Exercise regularly [...] order Assessment & Plan (05/31/2020 4:24 PM RADIOGRAPHIC TECHNOLOGIST): Cont current dose is euthyroid Report if has frequent palpitations, irreg heart beat or sudden changes in weight. Report if develops problem swallowing or hoarseness Assessment & Plan (04/01/2019 9:46 PM RADIOGRAPHIC TECHNOLOGIST): Cont current 75mcg dose pending TSH level [...] 04/2024 Assessment & Plan (05/31/2020 4:08 PM RADIOGRAPHIC TECHNOLOGIST): Colonoscopy- Numerous diverticuli throughout entire colon and small polyp cecum (Dr. Dailey) 09/11/2014 05/07/2020 DR Salgado, 5 polyps removed, diverticuli and int hemorrhoids on a 4 yr ff up now Assessment & Plan (04/01/2019 9:50 PM RADIOGRAPHIC TECHNOLOGIST): Colonoscopy due 08/2019 Resolved Problems Problem Noted Date Diagnosed Date Resolved Date Boil of leg except foot 09/06/2021 10/0 12/2023 Assessment & Plan (09/06/2021 2:43 PM CDT): Still with redness and inflammation Start Doxycycline 100 mg bid x 7-10 days Call if worsens Lipoma 04/01/2019 04/01/2019 Encounters Date Type Department Care Team Description 09/11/2024 9:00 AM CDT Office Visit [facility] Primary Care [address] [place] [phone] Brigette Hernandez MD Annual physical exam (Primary Dx); Acquired hypothyroidism; Dyslipidemia; Essential (primary) hypertension; Abnormal vaginal bleeding; BMI 27.0-27.9,adult; Serum calcium elevated from Last 3 Months Immunizations Immunization Administration Dates Next Due Influenza, [...] W/O BONE GRAFT COLONOSCOPY FRACTURE SURGERY LASIK HYSTEROSCOPY 09/22/2024, Dr Santamaria Medical History Medical History Date Comments Dyslipidemia [...] on file Legal Sex Female 7:35 PM RADIOGRAPHIC TECHNOLOGIST Gender Identity Not on file Sexual Orientation [...] 09/11/2024 9:02 AM CDT Plan of Treatment Health Maintenance Due Date Last Done Comments Hepatitis B Screening 02/22/1980 Cervical Cancer Screening 03/16/2021 03/16/2020 Covid-19 Vaccine ( season) 2024 02/22/2023, 02/10/2022, 08/14/2020, Additional history exists Breast Cancer Screening-Mammogram 10/03/2024 10/04/2023, 07/29/2022, 06/08/2021, Additional history exists Depression Screening 09/11/2025 09/11/2024, 09/11/2024, 03/04/2024, Additional history exists Regular Well Visit/Exam 18-64 09/11/2025 09/11/2024, 09/13/2023, 09/11/2022, Additional history exists Colon Cancer Screening-Colonoscopy 05/09/2029 [...] Results * COLONOSCOPY (05/09/2024) Scribed Colonoscopy Normal Historical Provider HEALTH MAINTENANCE Final Result * MAMMOGRAPHY (10/04/2023) Mammography Normal [facility] Provider HEALTH MAINTENANCE Final Result * HEPATITIS C SCREENING (10/05/2022) SCRIBED HCV ab NEGATIVE [facility] Shari MUNOZ HEALTH MAINTENANCE Edited Result - Final * PAP SMEAR WITH HPV (03/16/2020) us Historical Provider HEALTH MAINTENANCE Final Result from Last 3 Months or Most Recently Relevant to Health Maintenance Insurance Care Teams Superior [address] Justice Relationship Specialty Start Date End Date Brigette Hernandez MD [address] [place] [phone] PCP - General Internal Medicine 01/28/19 Blane Sheppard Jr., DPM [address] [place] [id number] Referring Physician Podiatry 09/06/21 Luiz Londono MD [address] [place] [address] Referring Physician Gastroenterology 09/06/21 Sri Doll NP [address] [place] [address] Nurse Practitioner Nurse Practitioner 09/13/23 Sarah Santamaria MD [address] [place] [address] Referring Physician Gynecology 09/11/24
--- OUTSIDE RECORDS SUMMARY | 2024-09-11 12:55 | XMS_ITS | Encounter Summary ---
Author Organization [facility] Care Team Providers Care Retail Worker Name Role Phone Brigette Hernandez MD Primary Care Provider + [phone] Viktoriya Coats MD Unavailable [phone] Silver Martinez DPM, Gabriel Unavailable + [phone] Luiz Londono MD Unavailable + Sri Doll NP Unavailable Sarah Santamaria MD Unavailable [phone] Encounter Details Date Type Department Care Team (Latest Contact Info) Description 07/26/2016 Orders Only [facility] ProviderAndreas MD [address] [place] [id number] Social History Tobacco Use Types Packs/Day Years Used Date Smoking Tobacco: Never Assessed Comments Unknown Sex and Gender Information Value Date Recorded Sex Assigned at Not on file Legal Sex Female 7:35 PM CADDY/CADDIE SUPERVISOR Gender Identity Not on file Sexual Orientation Not on file documented as of this encounter Plan of Treatment Not on file documented as of this encounter Procedures Procedure Name Priority Date/Time Associated Diagnosis Comments COLONOSCOPY - SCAN 07/26/2016 12 :00 AM CADDY/CADDIE SUPERVISOR documented in this encounter Results * COLONOSCOPY - SCAN (07/26/2016 12:00 AM CADDY/CADDIE SUPERVISOR) Narrative 07/26/2016 12:00 AM CADDY/CADDIE SUPERVISOR Ordered by an unspecified provider. us Historical Provider Final Res ult documented in this encounter Visit Diagnoses Not on filedocumented in this encounter Care Teams Retail Worker Relationship Specialty Start Date End Date Brigette Hernandez MD [address] [facility] [address] [place] [address] PCP - General Internal Medicine 01/28/19 Viktoriya Coats MD [address] [facility] [address] [place] [address] Referring Physician Obstetrics and Gynecology 09/06/21 09/12/23 Blane Sheppard Jr., DPM [address] [facility] [address] [place], [place] [phone] Referring Physician Podiatry 09/06/21 Luiz Londono MD [address] GASTROENTEROLOGY [place], [place] [id number] Referring Physician Gastroenterology 09/06/21 Sri Doll, DIAMOND POWDER TECHNICIAN [address] [facility] [address] [place], [place] [phone] Nurse Practitioner Nurse Practitioner 09/13/23 Sarah Santamaria MD [address] [facility] [address] [place] [address] Referring Physician Gynecology 09/11/24 documented as of this encounter
--- OUTSIDE RECORDS SUMMARY | 2024-09-11 12:55 | XMS_ITS | Encounter Summary ---
Author Organization [facility] Facility Care Team Providers Care Silk Brusher Name Role Phone Brigette Hernandez MD Primary Care Provider + [phone] Viktoriya Coats MD Unavailable +[phone] Silver Martinez DPM, Gabriel Unavailable + [phone] Luiz Londono MD Unavailable + Sri Doll NP Unavailable Sarah Santamaria MD Unavailable +[phone] Encounter Details Date Type Department Care Team (Latest Contact Info) Description 07/25/2017 Orders Only [facility] CLINCONV ProviderAndreas MD [address] [place] [address] Social History Tobacco Use Types Packs/Day Years Used Date Smoking Tobacco: Never Assessed Comments Unknown Sex and Gender Information Value Date Recorded Sex Assigned at Not on file Legal Sex Female 7:35 PM EXECUTIVE RECEPTIONIST Gender Identity Not on file Sexual Orientation Not on file documented as of this encounter Plan of Treatment Not on file documented as of this encounter Procedures Procedure Name Priority Date/Time Associated Diagnosis Comments SCAN - LABS 07/26/2017 12:00 AM EXECUTIVE RECEPTIONIST documented in this encounter Results * SCAN - LABS (07/26/2017 12:00 AM EXECUTIVE RECEPTIONIST) Narrative 07/26/2017 12:00 AM EXECUTIVE RECEPTIONIST Ordered by an unspecified provider. us Historical Provider Final Res ult documented in this encounter Visit Diagnoses Not on filedocumented in this encounter Care Teams Silk Brusher Relationship Specialty Start Date End Date Brigette Hernandez MD [address] [facility] 250 [place] [address] PCP - General Internal Medicine 01/28/19 Viktoriya Coats MD [address] [facility] [address] [place] [address] Referring Physician Obstetrics and Gynecology 09/06/21 09/12/23 Blane Sheppard Jr., DPM [address] [facility] [address] [place], [place] [id number] Referring Physician Podiatry 09/06/21 Luiz Londono MD [address] GASTROENTEROLOGY [place], [place] [address] Referring Physician Gastroenterology 09/06/21 Sri Doll, EXCELSIOR MACHINE FEEDER [address] [facility] [address] [place], [place] [phone] Nurse Practitioner Nurse Practitioner 09/13/23 Sarah Santamaria MD [address] [facility] 200 [place] [address] Referring Physician Gynecology 09/11/24 documented as of this encounter
--- OUTSIDE RECORDS SUMMARY | 2024-09-11 12:55 | XMS_ITS | Encounter Summary ---
Author Organization [facility] Facility Care Team Providers Care Channeling Machine Runner Name Role Phone Brigette Hernandez MD Primary Care Provider + [phone] Viktoriya Coats MD Unavailable +[phone] Silver Martinez DPM, Gabriel Unavailable + [phone] Luiz Londono MD Unavailable + Sri Doll NP Unavailable Sarah Santamaria MD Unavailable +[phone] Encounter Details Date Type Department Care Team (Latest Contact Info) Description 08/06/2018 Orders Only [facility] CLINCONV ProviderAndreas MD [address] [place] [address] Social History Tobacco Use Types Packs/Day Years Used Date Smoking Tobacco: Never Assessed Comments Unknown Sex and Gender Information Value Date Recorded Sex Assigned at Not on file Legal Sex Female 7:35 PM 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 Gender Identity Not on file Sexual [...] on filedocumented in this encounter Care Teams Channeling Machine Runner Relationship Specialty Start Date End Date Brigette Hernandez MD [address] [facility] 250 [place] [address] PCP - General Internal Medicine 01/28/19 Viktoriya Coats MD [address] [facility] [address] [place] [address] Referring Physician Obstetrics and Gynecology 09/06/21 09/12/23 Blane Sheppard Jr., DPM [address] [facility] [address] [place], [place] [phone] Referring Physician Podiatry 09/06/21 Luiz Londono MD [address] GASTROENTEROLOGY [place], [place] [address] Referring Physician Gastroenterology 09/06/21 Sri Doll, TOBACCO DRUMMER [address] [facility] 200 [place] [address] Nurse Practitioner Nurse Practitioner 09/13/23 Sarah Santamaria MD [address] [facility] 200 [place] [address] Referring Physician Gynecology 09/11/24 documented as of this encounter
--- OUTSIDE RECORDS SUMMARY | 2024-09-11 12:55 | XMS_ITS | Encounter Summary ---
Author Organization [facility] Address [address] [place] [address] Care Team Providers Care Quality Process Lead Name Role Phone Unavailable Primary Care Provider Unavailabl e Encounter Details Date Type Department Care Team (Late st Contact Info) Description 11/02/2018 Abstract [facility] CONVERSION [address] [place], [place] [id number] , Generic Conversion, Social History Tobacco Use [...]
--- OUTSIDE RECORDS SUMMARY | 2024-09-11 12:55 | XMS_ITS | Encounter Summary ---
Author Organization [facility] Facility Care Team Providers Care Relief Man Name Role Phone Brigette Hernandez MD Primary Care Provider + [phone] Viktoriya Coats MD Unavailable +[phone] Silver Martinez DPM, Gabriel Unavailable + [phone] Luiz Londono MD Unavailable + Sri Doll NP Unavailable Sarah Santamaria MD Unavailable +[phone] Encounter Details Date Type Department Care Team (Latest Contact Info) Description 09/06/2015 Orders Only [facility] CLINCONV ProviderAndreas MD [address] [place] [address] Social History Tobacco Use Types Packs/Day Years Used Date Smoking Tobacco: Never Assessed Comments Unknown Sex and Gender Information Value Date Recorded Sex Assigned at Not on file Legal Sex Female 7:35 PM KENNEL MANAGER Gender Identity Not on file Sexual [...] on filedocumented in this encounter Care Teams Relief Man Relationship Specialty Start Date End Date Brigette Hernandez MD [address] [facility] [address] [place] [address] PCP - General Internal Medicine 01/28/19 Viktoriya Coats MD [address] [facility] [address] [place] [address] Referring Physician Obstetrics and Gynecology 09/06/21 09/12/23 Blane Sheppard Jr., DPM [address] [facility] [address] [place], [place] [phone] Referring Physician Podiatry 09/06/21 Luiz Londono MD [address] GASTROENTEROLOGY [place], [place] [address] Referring Physician Gastroenterology 09/06/21 Sri Doll, CHIEF OPHTHALMIC TECHNICIAN [address] [facility] 200 [place] [address] Nurse Practitioner Nurse Practitioner 09/13/23 Sarah Santamaria MD [address] [facility] [address] [place] [address] Referring Physician Gynecology 09/11/24 documented as of this encounter
--- OUTSIDE RECORDS SUMMARY | 2024-09-11 12:55 | XMS_ITS | Encounter Summary ---
Author Organization [facility] Facility Care Team Providers Care Informatics Specialist Name Role Phone Brigette Hernandez MD Primary Care Provider + [phone] Viktoriya Coats MD Unavailable +[phone] Silver Martinez DPM, Gabriel Unavailable + [phone] Luiz Londono MD Unavailable + Sri Doll NP Unavailable Sarah Santamaria MD Unavailable [phone] Encounter Details Date Type Department Care Team (Latest Contact Info) Description 03/25/2015 Orders Only [facility] CLINCONV ProviderAndreas MD [address] [place] [address] Social History Tobacco Use Types Packs/Day Years Used Date Smoking Tobacco: Never Assessed Comments Unknown Sex and Gender Information Value Date Recorded Sex Assigned at Not on file Legal Sex Female 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 Gender Identity Not on file Sexual [...] on filedocumented in this encounter Care Teams Informatics Specialist Relationship Specialty Start Date End Date Brigette Hernandez MD [address] [facility] 250 [place] [address] PCP - General Internal Medicine 01/28/19 Viktoriya Coats MD [address] [facility] 908 [place] [address] Referring Physician Obstetrics and Gynecology 09/06/21 09/12/23 Blane Sheppard Jr., DPM [address] [facility] [address] [place], [place] [phone] Referring Physician Podiatry 09/06/21 Luiz Londono MD [address] GASTROENTEROLOGY [place], [place] [address] Referring Physician Gastroenterology 09/06/21 Sri Doll, AUDIT INTERN [address] [facility] 200 [place] [address] Nurse Practitioner Nurse Practitioner 09/13/23 Sarah Santamaria MD [address] [facility] 200 [place] [address] Referring Physician Gynecology 09/11/24 documented as of this encounter
[2024-09-11 16:36] LABS: Parathyroid Intact 27.8 pg/mL (14.5-75.2)
[2024-09-15 14:53] LABS: Ionized Calcium 5.3 mg/dL (4.7-5.5)
== END 2024-09-11 12:40 | disposition home or self-care (01) ==
LOC: ANHLAB 12:42
PROVIDERS: PCP Internal Medicine; Visit Provider Internal Medicine
DX: E83.52 Hypercalcemia (principal)
CPT/HCPCS: 36415; 82330; 83970

== ENCOUNTER 2024-09-22 01:03 | Day surgery (SDC) | payer OTHER, SELFPAY ==
[2024-09-11 10:49] VITALS: BMI 27.3
--- NOTE | 2024-09-11 10:50 | PC.NURSE ---
Report to the Outpatient Waiting Room, entrance under the green pavilion located off [facility], at time ___0745___ on date ____09/22/24___. Planned Procedure Time: ____944____.? Time changes happen often and if your time is changed the preop area will call you the afternoon before. - You and your visitor will be asked to self-screen and do not enter if you have any COVID symptoms. Please call surgeon if you need to reschedule. - A mask is optional within the hospital at this time. Patients may have clear liquids (water, carbonated beverages, clear teas, apple juice) until 3 hours prior to surgery with a maximum of 20 ounces. - No food from midnight until time of surgery and no smoking, or chewing tobacco (or any form of nicotine). No chewing gum, candy or mints. Take only the following medications with a SIP of water on the morning of surgery: ____levothyroxine, estradiol norethindrone, terbinafine___ DO NOT STOP ANY OF YOUR OTHER PRESCRIPTION MEDICATIONS PRIOR TO SURGERY EXCEPT THE FOLLOWING Hold all vitamins and supplements for 3 days per anesthesiologist. Medications to discontinue per physician HOLD SEMAGLUTIDE 10 DAYS PRIOR TO SURGERY Please no make-up, nail tajik, hairspray, perfume, deodorant, or body powder the day of surgery.? No jewelry (including any body piercings) or valuables the day of surgery, leave them at home.? Please take a shower or bath the night before, or the morning of, surgery with an antibacterial soap.? Wear comfortable, loose fitting clothing.? Children are encouraged to wear pajamas. - Jewelry must be removed prior to entering the operating room.? Rings and piercings that are not removed may be cut off. - The hospital will not accept responsibility for valuables.? - Please leave all valuables, including medications, at home the day of surgery. If you are going home after surgery, a licensed driver utility worker must drive you home.? - NO public transportation without another adult if you receive anesthesia. - We recommend that an adult stay with you for 24 hours following discharge. - We also recommend that you do not drive, make important decision, drink alcoholic beverages, or take any drugs that were not prescribed by your health care provider for at least 24 hours after your discharge time. Follow any additional instructions given to you from your surgeon. Telephone instructions given to ____Nalini Velasquez ____and asked if any additional questions and then verbalized understanding. Patient advised to call surgeon office or pre surgery nurse liaison [phone] if any additional questions.
--- OUTSIDE RECORDS SUMMARY | 2024-09-22 01:07 | XMS_ITS | Encounter Summary ---
Author Organization [facility] Facility Care Team Providers Care Public Health Clinical Nurse Specialist Name Role Phone Brigette Hernandez MD Primary Care Provider + [phone] Viktoriya Coats MD Unavailable [phone] Silver Martinez DPM, Gabriel Unavailable + [phone] Luiz Londono MD Unavailable + Sri Doll NP Unavailable Sarah Santamaria MD Unavailable +[phone] Encounter Details Date Type Department Care Team (Latest Contact Info) Description 01/15/2017 Orders Only [facility] CLINCONV ProviderAndreas MD [address] [place] [address] Social History Tobacco Use Types Packs/Day Years Used Date Smoking Tobacco: Never Assessed Comments Unknown Sex and Gender Information Value Date Recorded Sex Assigned at Not on file Legal Sex Female 7:35 PM 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 Gender Identity Not on file Sexual Orientation [...] on filedocumented in this encounter Care Teams Public Health Clinical Nurse Specialist Relationship Specialty Start Date End Date Brigette Hernandez MD [address] [facility] 250 [place] [address] PCP - General Internal Medicine 01/28/19 Viktoriya Coats MD [address] [facility] 908 [place] [address] Referring Physician Obstetrics and Gynecology 09/06/21 09/12/23 Blane Sheppard Jr., DPM [address] [facility] [address] [place], [place] [phone] Referring Physician Podiatry 09/06/21 Luiz Londono MD [address] GASTROENTEROLOGY [place], [place] [address] Referring Physician Gastroenterology 09/06/21 Sri Doll, PROJECT CONTROLS SCHEDULER [address] [facility] 200 [place] [address] Nurse Practitioner Nurse Practitioner 09/13/23 Sarah Santamaria MD [address] [facility] 200 [place] [address] Referring Physician Gynecology 09/11/24 documented as of this encounter
--- OUTSIDE RECORDS SUMMARY | 2024-09-22 01:07 | XMS_ITS | Encounter Summary ---
Author Organization [facility] Facility Care Team Providers Care Estate Administrator Name Role Phone Brigette Hernandez MD Primary Care Provider + [phone] Viktoriya Coats MD Unavailable +[phone] Silver Martinez DPM, Gabriel Unavailable + [phone] Luiz Londono MD Unavailable + Sri Doll NP Unavailable Sarah Santamaria MD Unavailable +[phone] Encounter Details Date Type Department Care Team (Latest Contact Info) Description 03/25/2015 Orders Only [facility] CLINCONV ProviderAndreas MD [address] [place] [address] Social History Tobacco Use Types Packs/Day Years Used Date Smoking Tobacco: Never Assessed Comments Unknown Sex and Gender Information Value Date Recorded Sex Assigned at Not on file Legal Sex Female 7:35 PM GRADES 7 AND 8 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 Gender Identity Not on file Sexual Orientation [...] on filedocumented in this encounter Care Teams Estate Administrator Relationship Specialty Start Date End Date Brigette Hernandez MD [address] [facility] 250 [place] [address] PCP - General Internal Medicine 01/28/19 Viktoriya Coats MD [address] [facility] [address] [place] [address] Referring Physician Obstetrics and Gynecology 09/06/21 09/12/23 Blane Sheppard Jr., DPM [address] [facility] [address] [place], [place] [phone] Referring Physician Podiatry 09/06/21 Luiz Londono MD [address] GASTROENTEROLOGY [place], [place] [address] Referring Physician Gastroenterology 09/06/21 Sri Doll, BOARD WRITER [address] [facility] 200 [place] [address] Nurse Practitioner Nurse Practitioner 09/13/23 Sarah Santamaria MD [address] [facility] [address] [place] [address] Referring Physician Gynecology 09/11/24 documented as of this encounter
--- OUTSIDE RECORDS SUMMARY | 2024-09-22 01:07 | XMS_ITS | Encounter Summary ---
Author Organization [facility] Facility Care Team Providers Care Flower Maker Name Role Phone Brigette Hernandez MD Primary Care Provider + [phone] Viktoriya Coats MD Unavailable +[phone] Silver Martinez DPM, Gabriel Unavailable + [phone] Luiz Londono MD Unavailable + Sri Doll NP Unavailable Sarah Santamaria MD Unavailable +[phone] Encounter Details Date Type Department Care Team (Latest Contact Info) Description 01/02/2018 Orders Only [facility] CLINCONV ProviderAndreas MD [address] [place] [address] Social History Tobacco Use Types Packs/Day Years Used Date Smoking Tobacco: Never Assessed Comments Unknown Sex and Gender Information Value Date Recorded Sex Assigned at Not on file Legal Sex Female 7:35 PM SHOCHET Gender Identity Not on file Sexual Orientation [...] on filedocumented in this encounter Care Teams Flower Maker Relationship Specialty Start Date End Date Brigette Hernandez MD 14[address] [facility] 250 [place] [address] PCP - General Internal Medicine 01/28/19 Viktoriya Coats MD [address] [facility] 9[address] [place] [address] Referring Physician Obstetrics and Gynecology 09/06/21 09/12/23 Blane Sheppard Jr., DPM [address] [facility] [address] [place], [place] [phone] Referring Physician Podiatry 09/06/21 Luiz Londono MD [address] GASTROENTEROLOGY [place], [place] [address] Referring Physician Gastroenterology 09/06/21 Sri Doll, COVERING MACHINE TENDER [address] [facility] 200 [place] [address] Nurse Practitioner Nurse Practitioner 09/13/23 Sarah Santamaria MD [address] [facility] [address] [place] [address] Referring Physician Gynecology 09/11/24 documented as of this encounter
--- OUTSIDE RECORDS SUMMARY | 2024-09-22 01:07 | XMS_ITS | Clinical Summary ---
Author Organization [facility] Address [address] [place] [address] Care Team Providers Care Chief Marketing Officer Name Role Phone Brigette Hernandez MD Primary Care Provider + [phone] Silver Martinez DPM, Gabriel Unavailable + [phone] Luiz Londono MD Unavailable + Sri Doll NP Unavailable Sarah Santamaria MD Unavailable [phone] Allergies Active Allergy Reactions Criticality Noted Date Comments Amoxicillin Rash Medium 01/08/2019 rash Amoxicillin-Pot Clavulanate Rash Medium 01/09/20 19 rash clavulanic acid Medications fluticasone propionate (FLONASE) 50 mcg/actuation nasal spray daily Active magnesium gluconate 200 mg tablet 1 tablet (200 mg total) daily Active coenzyme P45-[id number] E 100-5 mg-unit capsule 100 mg daily [...] 9:21 AM CDT): Under the care of JOB ESTIMATOR Dr Santamaria will be having a hysteroscopy [...] and establishing or updating healthcare power of check examiner document and providing our office with a [...] and establishing or updating healthcare power of check examiner document and providing our office with a [...] and establishing or updating healthcare power of check examiner document and providing our office with a copy. Assessment & Plan (05/31/2020 4:03 PM ZIPPER SETTER CHAINSTITCH): Wear sunscreen with SPF over 50 while [...] 03/29/2020 Assessment & Plan (05/31/2020 4:13 PM ZIPPER SETTER CHAINSTITCH): Resolved, took 2 mos for the pain [...] repeated Assessment & Plan (05/31/2020 4:03 PM ZIPPER SETTER CHAINSTITCH): Stable on statin. Ff low chol diet Assessment & Plan (04/01/2019 9:45 PM ZIPPER SETTER CHAINSTITCH): Cont atorvastatin at current dose, last july [...] diet Assessment & Plan (05/31/2020 4:03 PM ZIPPER SETTER CHAINSTITCH): BP is controlled, cont current dose Ff low sodium diet Assessment & Plan (04/01/2019 9:44 PM ZIPPER SETTER CHAINSTITCH): Follow low sodium DASH Diet. Exercise regularly [...] order Assessment & Plan (05/31/2020 4:24 PM ZIPPER SETTER CHAINSTITCH): Cont current dose is euthyroid Report if has frequent palpitations, irreg heart beat or sudden changes in weight. Report if develops problem swallowing or hoarseness Assessment & Plan (04/01/2019 9:46 PM ZIPPER SETTER CHAINSTITCH): Cont current 75mcg dose pending TSH level [...] 04/2024 Assessment & Plan (05/31/2020 4:08 PM ZIPPER SETTER CHAINSTITCH): Colonoscopy- Numerous diverticuli throughout entire colon and small polyp cecum (Dr. Dailey) 09/11/2014 05/07/2020 DR Salgado, 5 polyps removed, diverticuli and int hemorrhoids on a 4 yr ff up now Assessment & Plan (04/01/2019 9:50 PM ZIPPER SETTER CHAINSTITCH): Colonoscopy due 08/2019 Resolved Problems Problem Noted Date Diagnosed Date Resolved Date Boil of leg except foot 09/06/2021 10/0 12/2023 Assessment & Plan (09/06/2021 2:43 PM CDT): Still with redness and inflammation Start Doxycycline 100 mg bid x 7-10 days Call if worsens Lipoma 04/01/2019 04/01/2019 Encounters Date Type Department Care Team Description 09/18/2024 Telephone [facility] [address] [place] [phone] Brigette Hernandez MD Needs annual appt made, please 09/11/2024 9:00 AM CDT Office Visit [facility] [address] [facility] [address] [place] [phone] Brigette Hernandez MD Annual physical exam (Primary [...] on file Legal Sex Female 7:35 PM ZIPPER SETTER CHAINSTITCH Gender Identity Not on file Sexual Orientation [...] Date/Time Associated Diagnosis Comments COLONOSCOPY Routine 05/09/2024 HM MAMMOGRAPHY Routine 10/04/2023 HM HEPATITIS C SCREENING Routine 10/05/2022 PAP SMEAR WITH HPV Routine 03/16/2020 from Last 3 Months or Most Recently Relevant to Health Maintenance Results * COLONOSCOPY (05/09/2024) Scribed HM Colonoscopy Normal us Historical Provider HEALTH MAINTENANCE Final Result * MAMMOGRAPHY (10/04/2023) Mammography Normal us Historical Provider HEALTH MAINTENANCE Final Result * HEPATITIS C SCREENING (10/05/2022) SCRIBED HCV ab NEGATIVE us Historical Provider HEALTH MAINTENANCE Edited Result - Final * PAP SMEAR WITH HPV (03/16/2020) Historical Provider HEALTH MAINTENANCE Final Result from Last 3 Months or Most Recently Relevant to Health Maintenance Insurance Member Subscriber Plan / Payer (Ef fective 2018-Present) Name:Eva Forte Relation to Subscriber:Self Name:Eva Forte Payer ID:[id number] (NAIC) Type:[facility] HMO/PPO Address: [place] [phone] Care Teams Chief Marketing Officer Relationship Specialty Start Date End Date Brigette Hernandez MD [address] [place] [address] PCP - General Internal Medicine 01/28/19 Blane Sheppard Jr., BORA [address] [address] Referring Physician Podiatry 09/06/21 Luiz Londono MD [address] [place] [address] Referring Physician Gastroenterology 09/06/21 Sri Doll, LEARNING COACH [address] [facility] 200 [place] [address] Nurse Practitioner Nurse Practitioner 09/13/23 Sarah Santamaria MD [address] [facility] 200 [place] [address] Referring Physician Gynecology 09/11/24
--- OUTSIDE RECORDS SUMMARY | 2024-09-22 01:07 | XMS_ITS | Referral Summary ---
Author Organization [facility] at [facility] Address [address] [place] [address] Care Team Providers Care Associate Merchandise Planner Name Role Phone Brigette Hernandez MD Primary Care Provider + [phone] Silver Martinez DPM, Gabriel Unavailable + [phone] Luiz Londono MD Unavailable + Sri Doll NP Unavailable Sarah Santamaria MD Unavailable [phone] Encounters Date Type Department Care Team Description 09/18/2024 Telephone [facility] Primary Care [address] [place] [phone] Brigette Hernandez MD Needs annual appt made, please 09/11/2024 9:00 AM CDT Office Visit [facility] Primary Care [address] [place] [phone] Brigette Hernandez MD Annual physical exam [...] tablet (200 mg total) daily Active coenzyme [id number] E 100-5 mg-unit capsule 100 mg daily [...] 9:21 AM CDT): Under the care of FABRIC STRETCHER Dr Santamaria will be having a hysteroscopy [...] and establishing or updating healthcare power of title attorney document and providing our office with [...] and establishing or updating healthcare power of title attorney document and providing our office with [...] and establishing or updating healthcare power of title attorney document and providing our office with a copy. Assessment & Plan (05/31/2020 4:03 PM AIRCRAFT POWERPLANT REPAIRER): Wear sunscreen with SPF over 50 while [...] please contact the office. I strongly encourage [facility] sign ups. It can facilitate communication flow. Please contact the office for instructions on signing up. Consider getting Shingrix (shingles vaccine). This is a 2-shot series with each injection given 2-6 months apart. You can obtain the vaccine at most major pharmacies without a prescription History of COVID-19 03/29/2020 Assessment & Plan (05/31/2020 4:13 PM AIRCRAFT POWERPLANT REPAIRER): Resolved, took 2 mos for the pain [...] repeated Assessment & Plan (05/31/2020 4:03 PM AIRCRAFT POWERPLANT REPAIRER): Stable on statin. Ff low chol diet Assessment & Plan (04/01/2019 9:45 PM AIRCRAFT POWERPLANT REPAIRER): Cont atorvastatin at current dose, last july [...] diet Assessment & Plan (05/31/2020 4:03 PM AIRCRAFT POWERPLANT REPAIRER): BP is controlled, cont current dose Ff low sodium diet Assessment & Plan (04/01/2019 9:44 PM AIRCRAFT POWERPLANT REPAIRER): Follow low sodium DASH Diet. Exercise regularly [...] order Assessment & Plan (05/31/2020 4:24 PM AIRCRAFT POWERPLANT REPAIRER): Cont current dose is euthyroid Report if has frequent palpitations, irreg heart beat or sudden changes in weight. Report if develops problem swallowing or hoarseness Assessment & Plan (04/01/2019 9:46 PM AIRCRAFT POWERPLANT REPAIRER): Cont current 75mcg dose pending TSH level [...] 04/2024 Assessment & Plan (05/31/2020 4:08 PM AIRCRAFT POWERPLANT REPAIRER): Colonoscopy- Numerous diverticuli throughout entire colon and small polyp cecum (Dr. Dailey) 09/11/2014 05/07/2020 DR Salgado, 5 polyps removed, diverticuli and int hemorrhoids on a 4 yr ff up now Assessment & Plan (04/01/2019 9:50 PM AIRCRAFT POWERPLANT REPAIRER): Colonoscopy due 08/2019 Resolved Problems Problem Noted [...] on file Legal Sex Female 7:35 PM AIRCRAFT POWERPLANT REPAIRER Gender Identity Not on file Sexual Orientation [...] Results * COLONOSCOPY (05/09/2024) Scribed Colonoscopy Normal [facility] Provider HEALTH MAINTENANCE Final Result * MAMMOGRAPHY (10/04/2023) Mammography Normal [facility] Provider HEALTH MAINTENANCE Final Result * HEPATITIS C SCREENING (10/05/2022) SCRIBED HCV ab NEGATIVE [facility] Provider HEALTH MAINTENANCE Edited Result - Final * PAP SMEAR WITH HPV (03/16/2020) us Historical Provider HEALTH MAINTENANCE Final Result from Last 3 Months or Most Recently Relevant to Health Maintenance Insurance Care Teams Associate Merchandise Planner Relationship Specialty Start Date End Date Brigette Hernandez MD [address] [place] [address] PCP - General Internal Medicine 01/28/19 Blane Sheppard Jr., PAYTONM [address] [place] [address] Referring Physician Podiatry 09/06/21 Luiz Londono MD [address] [place] [address] Referring Physician Gastroenterology 09/06/21 Sri Doll, MAAME [address] [place] [address] Nurse Practitioner Nurse Practitioner 09/13/23 Sarah Santamaria MD [address] [place] [address] Referring Physician Gynecology 09/11/24
--- OUTSIDE RECORDS SUMMARY | 2024-09-22 01:07 | XMS_ITS | Encounter Summary ---
Author Organization [facility] Facility Care Team Providers Care Rn Compliance Name Role Phone Brigette Hernandez MD Primary Care Provider + [phone] Viktoriya Coats MD Unavailable +[phone] Silver Martinez DPM, Gabriel Unavailable + [phone] Luiz Londono MD Unavailable + Sri Doll NP Unavailable Sarah Santamaria MD Unavailable [phone] Encounter Details Date Type Department Care Team (Latest Contact Info) Description 07/25/2017 Orders Only [facility] ProviderAndreas MD [address] [place] [address] Social History Tobacco Use Types Packs/Day Years Used Date Smoking Tobacco: Never Assessed Comments Unknown Sex and Gender Information Value Date Recorded Sex Assigned at Not on file Legal Sex Female 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 us Historical Provider Final Res ult documented in this encounter Visit Diagnoses Not on filedocumented in this encounter Care Teams Rn Compliance Relationship Specialty Start Date End Date Brigette Hernandez MD [address] [facility] [address] [place] [address] PCP - General Internal Medicine 01/28/19 Viktoriya Coats MD [address] [facility] [address] [place] [address] Referring Physician Obstetrics and Gynecology 09/06/21 09/12/23 Blane Sheppard Jr., DPM [address] [facility] [address] [place], [place] [id number] Referring Physician Podiatry 09/06/21 Luiz Londono MD [address] GASTRO[place]OLOGY [place], [place] [address] Referring Physician Gastroenterology 09/06/21 Sri Doll, COMPUTER ARTIST [address] [facility] [address] [place], [place] [address] Nurse Practitioner Nurse Practitioner 09/13/23 Sarah Santamaria MD [address] [facility] [address] [place] [address] Referring Physician Gynecology 09/11/24 documented as of this encounter
--- OUTSIDE RECORDS SUMMARY | 2024-09-22 01:07 | XMS_ITS | Encounter Summary ---
Author Organization [facility] Facility Care Team Providers Care Convenience Recycle Center Tech Name Role Phone Brigette Hernandez MD Primary Care Provider + [phone] Viktoriya Coats MD Unavailable [phone] Silver Martinez DPM, Gabriel Unavailable + [phone] Luiz Londono MD Unavailable + Sri Doll NP Unavailable Sarah Santamaria MD Unavailable [phone] Encounter Details Date Type Department Care Team (Latest Contact Info) Description 09/06/2015 Orders Only [facility] ProviderAndreas MD [address] [place] [address] Social History Tobacco Use Types Packs/Day Years Used Date Smoking Tobacco: Never Assessed Comments Unknown Sex and Gender Information Value Date Recorded Sex Assigned at Not on file 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 Gender Identity Not on file Sexual Orientation [...] on filedocumented in this encounter Care Teams Convenience Recycle Center Tech Relationship Specialty Start Date End Date Brigette Hernandez MD [address] [facility] 250 [place] [address] PCP - General Internal Medicine 01/28/19 Viktoriya Coats MD [address] [facility] [address] [place] [address] Referring Physician Obstetrics and Gynecology 09/06/21 09/12/23 Blane Sheppard Jr., DPM [address] [facility] [address] [place], [place] [phone] Referring Physician Podiatry 09/06/21 Luiz Londono MD [address] GASTROENTEROLOGY [place], [place] [address] Referring Physician Gastroenterology 09/06/21 Sri Doll, POWERHOUSE ENGINEER [address] [facility] [address] [place] [address] Nurse Practitioner Nurse Practitioner 09/13/23 Sarah Santamaria MD [address] [facility] [address] [place] [address] Referring Physician Gynecology 09/11/24 documented as of this encounter
--- OUTSIDE RECORDS SUMMARY | 2024-09-22 01:07 | XMS_ITS | Encounter Summary ---
Author Organization [facility] Facility Care Team Providers Care Fence Erector Supervisor Name Role Phone Brigette Hernandez MD Primary Care Provider + [phone] Viktoriya Coats MD Unavailable [phone] Silver Martinez DPM, Gabriel Unavailable + [phone] Luiz Londono MD Unavailable + Sri Doll NP Unavailable Sarah Santamaria MD Unavailable [phone] Encounter Details Date Type Department Care Team (Latest Contact Info) Description 03/16/2016 Orders Only [facility]INCON[facility] ProviderAndreas MD [address] [place] [address] Social History Tobacco Use Types Packs/Day Years Used Date Smoking Tobacco: Never Assessed Comments Unknown Sex and Gender Information Value Date Recorded Sex Assigned at Not on file Legal 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 us Historical Provider Final Res ult documented in this encounter Visit Diagnoses Not on filedocumented in this encounter Care Teams Fence Erector Supervisor Relationship Specialty Start Date End Date Brigette Hernandez MD [address] [facility] [address] [place] [address] PCP - General Internal Medicine 01/28/19 Viktoriya Coats MD [address] [facility] [address] [place] [address] Referring Physician Obstetrics and Gynecology 09/06/21 09/12/23 Blane Sheppard Jr., DPM [address] [facility] [address] [place], [place] [phone] Referring Physician Podiatry 09/06/21 Luiz Londono MD [address] GASTROENTEROLOGY [place], [place] [address] Referring Physician Gastroenterology 09/06/21 Sri Doll, CLASSIFICATION CASE MANAGER [address] [facility] [address] [place], [place] [phone] Nurse Practitioner Nurse Practitioner 09/13/23 Sarah Santamaria MD [address] [facility] 200 [place] [address] Referring Physician Gynecology 09/11/24 documented as of this encounter
--- OUTSIDE RECORDS SUMMARY | 2024-09-22 01:07 | XMS_ITS | Encounter Summary ---
Author Organization [facility] Facility Care Team Providers Care Product Manager E Commerce Name Role Phone Brigette Hernandez MD Primary Care Provider + [phone] Viktoriya Coats MD Unavailable +[phone] Silver Martinez DPM, Gabriel Unavailable + [phone] Luiz Londono MD Unavailable + Sri Doll NP Unavailable Sarah Santamaria MD Unavailable +[phone] Encounter Details Date Type Department Care Team (Latest Contact Info) Description 07/26/2016 Orders Only [facility]INCON[facility] ProviderAndreas MD [address] [place] [address] Social History Tobacco Use Types Packs/Day Years Used Date Smoking Tobacco: Never Assessed Comments Unknown Sex and Gender Information Value Date Recorded Sex Assigned at Not on file Legal Sex Female 7:35 PM ORGAN RECOVERY 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 us Historical Provider Final Res ult documented in this encounter Visit Diagnoses Not on filedocumented in this encounter Care Teams Product Manager E Commerce Relationship Specialty Start Date End Date Brigette Hernandez MD [address] [facility] 250 [place] [address] PCP - General Internal Medicine 01/28/19 Viktoriya Coats MD [address] [facility] 908 [place] [address] Referring Physician Obstetrics and Gynecology 09/06/21 09/12/23 Blane Sheppard Jr., DPM [address] [facility] [address] [place], [place] [phone] Referring Physician Podiatry 09/06/21 Luiz Londono MD [address] GASTROENTEROLOGY [place], [place] [address] Referring Physician Gastroenterology 09/06/21 Sri Doll, LSAT INSTRUCTOR [address] [facility] [address] [place], [place] [address] Nurse Practitioner Nurse Practitioner 09/13/23 Sarah Santamaria MD [address] [facility] 200 [place] [address] Referring Physician Gynecology 09/11/24 documented as of this encounter
--- OUTSIDE RECORDS SUMMARY | 2024-09-22 01:07 | XMS_ITS | Clinical Summary ---
Author Organization [facility] Address [address] [place] [address] Care Team Providers Care Distance Learning Administrator Name Role Phone Unavailable Primary Care Provider [...] Screening with HPV 02/22/1992 Mammogram Screening 2002 Pneumococcal Vaccine: 50+ Ye ars (1 of 1 - PCV) 02/22/2012 Zoster Vaccines (1 of 2) 02/22/2012 COVID-19 [...]
--- OUTSIDE RECORDS SUMMARY | 2024-09-22 01:07 | XMS_ITS | Encounter Summary ---
Author Organization [facility] Facility Care Team Providers Care Lodging Manager Name Role Phone Brigette Hernandez MD Primary Care Provider + [phone] Viktoriya Coats MD Unavailable [phone] Silver Martinez DPM, Gabriel Unavailable + [phone] Luiz Londono MD Unavailable + Sri Doll NP Unavailable Sarah Santamaria MD Unavailable [phone] Encounter Details Date Type Department Care Team (Latest Contact Info) Description 07/13/2016 Orders Only [facility]INCON[facility] ProviderAndreas MD [address] [place] [address] Social History Tobacco Use Types Packs/Day Years Used Date Smoking Tobacco: Never Assessed Comments Unknown Sex and Gender Information Value Date Recorded Sex Assigned at Not on file Legal Sex Female 7:35 PM FOOD AND DRUG INSPECTOR Gender Identity Not on file Sexual Orientation Not on file documented as of this encounter Plan of Treatment Not on file documented as of this encounter Procedures Procedure Name Priority Date/Time Associated Diagnosis Comments SCAN - LABS 07/26/2016 12:00 AM FOOD AND DRUG INSPECTOR documented in this encounter Results * SCAN - LABS (07/26/2016 12:00 AM FOOD AND DRUG INSPECTOR) Narrative 07/26/2016 12:00 AM FOOD AND DRUG INSPECTOR Ordered by an unspecified provider. us Historical Provider Final Res ult documented in this encounter Visit Diagnoses Not on filedocumented in this encounter Care Teams Lodging Manager Relationship Specialty Start Date End Date Brigette Hernandez MD [address] [facility] [address] [place] [address] PCP - General Internal Medicine 01/28/19 Viktoriya Coats MD [address] [facility] [address] [place] [address] Referring Physician Obstetrics and Gynecology 09/06/21 09/12/23 Blane Sheppard Jr., DPM [address] [facility] [address] [place], [place] [phone] Referring Physician Podiatry 09/06/21 Luiz Londono MD [address] GASTROENTEROLOGY [place], [place] [address] Referring Physician Gastroenterology 09/06/21 Sri Doll, CREDIT MANAGER [address] [facility] [address] [place], [place] [address] Nurse Practitioner Nurse Practitioner 09/13/23 Sarah Santamaria MD [address] [facility] [address] [place] [address] Referring Physician Gynecology 09/11/24 documented as of this encounter
--- OUTSIDE RECORDS SUMMARY | 2024-09-22 01:07 | XMS_ITS | Encounter Summary ---
Author Organization [facility] Facility Care Team Providers Care Wildlife Biostation Research Ecologist Name Role Phone Brigette Hernandez MD Primary Care Provider + [phone] Viktoriya Coats MD Unavailable +[phone] Silver Martinez DPM, Gabriel Unavailable + [phone] Luiz Londono MD Unavailable + Sri Doll NP Unavailable Sarah Santamaria MD Unavailable [phone] Encounter Details Date Type Department Care Team (Latest Contact Info) Description 08/06/2018 Orders Only [facility] CLINCONV ProviderAndreas MD [address] [place] [address] Social History Tobacco Use Types Packs/Day Years Used Date Smoking Tobacco: Never Assessed Comments Unknown Sex and Gender Information Value Date Recorded Sex Assigned at Not on file Legal Sex Female 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 PM FLOOR 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 Gender Identity Not on file Sexual Orientation [...] on filedocumented in this encounter Care Teams Wildlife Biostation Research Ecologist Relationship Specialty Start Date End Date Brigette Hernandez MD [address] [facility] [address] [place] [address] PCP - General Internal Medicine 01/28/19 Viktoriya Coats MD [address] [facility] [address] [place] [address] Referring Physician Obstetrics and Gynecology 09/06/21 09/12/23 Blane Sheppard Jr., DPM [address] [facility] [address] [place], [place] [address] Referring Physician Podiatry 09/06/21 Luiz Londono MD [address] GASTROENTEROLOGY [place], [place] [address] Referring Physician Gastroenterology 09/06/21 Sri Doll, AUTOMATION MECHANIC [address] [facility] [address] [place] [address] Nurse Practitioner Nurse Practitioner 09/13/23 Sarah Santamaria MD [address] [facility] [address] [place] [address] Referring Physician Gynecology 09/11/24 documented as of this encounter
--- OUTSIDE RECORDS SUMMARY | 2024-09-22 01:07 | XMS_ITS | Encounter Summary ---
Author Organization [facility] Address [address] [place] [address] Care Team Providers Care Transformation Analyst Name Role Phone Unavailable Primary Care Provider Unavailabl e Encounter Details Date Type Department Care Team (Late st Contact Info) Description 11/02/2018 Abstract [facility] CONVERSION [address] [place], [place] [id number] , Generic Conversion, Social History Tobacco Use [...]
--- OUTSIDE RECORDS SUMMARY | 2024-09-22 01:07 | XMS_ITS | Encounter Summary ---
Author Organization [facility] Facility Care Team Providers Care Insurance Administrative Assistant Name Role Phone Brigette Hernandez MD Primary Care Provider + [phone] Viktoriya Coats MD Unavailable [phone] Silver Martinez DPM, Gabriel Unavailable + [phone] Luiz Londono MD Unavailable + Sri Doll NP Unavailable Sarah Santamaria MD Unavailable [phone] Encounter Details Date Type Department Care Team (Latest Contact Info) Description 07/07/2016 Orders Only [facility] CLINCONV ProviderAndreas MD [address] [place] [address] Social History Tobacco Use Types Packs/Day Years Used Date Smoking Tobacco: Never Assessed Comments Unknown Sex and Gender Information Value Date Recorded Sex Assigned at Not on file Legal Sex Female 7:35 PM DISTRICT SERVICE MANAGER Gender Identity Not on file Sexual Orientation Not on file documented as of this encounter Plan of Treatment Not on file documented as of this encounter Procedures Procedure Name Priority Date/Time Associated Diagnosis Comments SCAN - LABS 07/26/2016 12:00 AM DISTRICT SERVICE MANAGER documented in this encounter Results * SCAN - LABS (07/26/2016 12:00 AM DISTRICT SERVICE MANAGER) Narrative 07/26/2016 12:00 AM DISTRICT SERVICE MANAGER Ordered by an unspecified provider. us Historical Provider Final Res ult documented in this encounter Visit Diagnoses Not on filedocumented in this encounter Care Teams Insurance Administrative Assistant Relationship Specialty Start Date End Date Brigette Hernandez MD [address] [facility] [address] [place] [address] PCP - General Internal Medicine 01/28/19 Viktoriya Coats MD [address] [facility] [address] [place] [address] Referring Physician Obstetrics and Gynecology 09/06/21 09/12/23 Blane Sheppard Jr., DPM [address] [facility] [address] [place], [place] [address] Referring Physician Podiatry 09/06/21 Luiz Londono MD [address] GASTROENTEROLOGY [place], [place] [address] Referring Physician Gastroenterology 09/06/21 Sri Doll, MEAT CUTTER [address] [facility] [address] [place], [place] [address] Nurse Practitioner Nurse Practitioner 09/13/23 Sarha Santamaria MD [address] [facility] [address] [place] [address] Referring Physician Gynecology 09/11/24 documented as of this encounter
--- OUTSIDE RECORDS SUMMARY | 2024-09-22 01:07 | XMS_ITS | Encounter Summary ---
Author Organization [facility] Facility Care Team Providers Care Felt Washing Machine Tender Name Role Phone Brigette Hernandez MD Primary Care Provider + [phone] Viktoriya Coats MD Unavailable +[phone] Silver Martinez DPM, Gabriel Unavailable + [phone] Luiz Londono MD Unavailable + Sri Doll NP Unavailable Sarah Santamaria MD Unavailable [phone] Encounter Details Date Type Department Care Team (Latest Contact Info) Description 01/04/2016 Orders Only [facility] CLINCONV ProviderAndreas MD [address] [place] [address] Social History Tobacco Use Types Packs/Day Years Used Date Smoking Tobacco: Never Assessed Comments Unknown Sex and Gender Information Value Date Recorded Sex Assigned at Not on file Legal Sex Female 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 Gender Identity Not on file Sexual [...] on filedocumented in this encounter Care Teams Felt Washing Machine Tender Relationship Specialty Start Date End Date Brigette Hernandez MD [address] [facility] [address] [place] [address] PCP - General Internal Medicine 01/28/19 Viktoriya Coats MD [address] [facility] [address] [place] [address] Referring Physician Obstetrics and Gynecology 09/06/21 09/12/23 Blane Sheppard Jr., DPM [address] [facility] [address] [place], [place] [phone] Referring Physician Podiatry 09/06/21 Luiz Londono MD [address] GASTROENTEROLOGY [place], [place] [address] Referring Physician Gastroenterology 09/06/21 Sri Doll, HOSPITALITY COORDINATOR [address] [facility] 200 [place] [address] Nurse Practitioner Nurse Practitioner 09/13/23 Sarah Santamaria MD [address] [facility] 200 [place] [address] Referring Physician Gynecology 09/11/24 documented as of this encounter
--- NOTE | 2024-09-22 07:28 | WPDHPUPDATE1 ---
History and Physical Update Update Date/Time: 09/22/24 07:28 History and Physical has been reviewed, including an updated exam of the patient. There are NO changes in the patient's condition. Risks, benefits, and alternatives have been discussed and questions answered. Patient agrees to proceed with procedure.
--- NOTE | 2024-09-22 07:28 | PM.HPGS ---
History of Present Illness History of Present Illness Consent: Risks, benefits, and alternatives have been discussed and questions answered. Patient agrees to proceed with procedure. Chief complaint: Post Menopausal Bleeding Narrative: Nalini Forte is a 64 year old female with postmenopausal bleeding episode. It was recommended to undergo a hysteroscopy D&C for further evaluation. Risks of infection, bleeding, perforation, and possible pathology are reviewed. Patient voices understanding and agrees to proceed. Review of Systems Review of Systems: not repeated day of surgery; patient states no changes in status [facility] Past Medical History Medical History (Updated 09/22/24 @ 07:31 by Sarah Santamaria MD) Hypothyroid Hypertension Hyperlipidemia Family history of colon cancer in mother Adenomatous colon polyp Surgical History Surgical History (Updated 09/22/24 @ 07:30 by Sarah Santamaria MD) Status post tonsillectomy H/O right breast biopsy H/O right wrist surgery 1991 with bone graft Social History Social History Smoking packs per day: 1 Smoking cigarettes per day: 20.0 Years smoked: 32 Smoking pack-years: 32.00 Smoking status: Former smoker Tobacco type: cigarettes Smoking end date: 11/25/06 Alcohol intake: current Drinks per week: 5 Alcohol use details: BEER Substance use: never Substance use type: does not use Living arrangements: with family Spiritual care concerns: No Meds Home Medications and Allergies Home Medications ?Medication ?Instructions ?Recorded ?Confirmed ?Type Glucomanan 1 dose PO DAILY 04/28/20 09/11/24 History ascorbic acid (vitamin C) 1,000 mg 1 g PO DAILY 04/28/20 09/11/24 History tablet atorvastatin 10 mg tablet 10 mg PO DAILY 04/28/20 09/11/24 History cetirizine 10 mg tablet (Zyrtec) 10 mg PO DAILY PRN Allergy Symptoms 04/28/20 09/11/24 History levothyroxine 75 mcg tablet 50 mcg PO DAILY 04/28/20 09/11/24 History magnesium 500 mg tablet 500 mg PO DAILY 04/28/20 09/11/24 History norethindrone acetate 1 mg-ethinyl 0.5 tablet PO DAILY 04/28/20 09/11/24 History estradiol 5 mcg tablet (Jinteli) cholecalciferol (vitamin D3) 25 25 mcg PO DAILY 04/28/24 09/11/24 History mcg (1,000 unit) capsule (Vitamin D3) semaglutide (weight loss) 0.5 0.5 mg subcut WEEKLY 04/30/24 09/11/24 History mg/0.5 mL subcutaneous pen injector terbinafine HCl 250 mg tablet 250 mg PO DAILY PRN once daily for 09/11/24 09/11/24 History 7 days once a month Allergies Allergy/AdvReac Type Severity Reaction Status Date / Time amoxicillin Allergy Mild Rash Verified 09/11/24 10:35 clavulanic acid (From Allergy Mild Rash Verified 09/11/24 10:35 Augmentin) Exam Const: General: healthy appearing and alert Orientation/consciousness: patient oriented x3 Resp: Effort & Inspection: normal respiratory effort : External Female Exam: normal external appearance Speculum Exam - Vagina: normal appearance of the vagina and normal vaginal discharge Speculum Exam - Cervix: normal appearance of the cervix Bimanual exam- vagina & uterus: uterine size normal and consistency normal Bimanual Exam- Adnexa, other: normal adnexae and No adnexal tenderness Neuro: General: patient oriented x3 Assessment and Plan Assessment and plan (1) Post-menopausal bleeding: Code(s): N95.0 - Postmenopausal bleeding Status: Acute Assessment and Plan: Plan to proceed with D&C hysteroscopy
--- NOTE | 2024-09-22 08:28 | WPDANESEPPF ---
Anes - Initial Pre Proc Eval Procedure: Operation Date: 09/22/24 09:45 Proposed Procedures p Hysteroscopy Dilation and Curettage - Sarah Santamaria MD Date/Time: 09/22/24 08:28 Surgeon: Sarah Santamaria MD Pre Op Diagnosis: Post Menopausal Bleeding Patient Data Age: 64 Gender: F Height: 1.57 m Weight: 67.7 kg Allergies Allergy/AdvReac Type Severity Reaction Status Date / Time amoxicillin Allergy Mild Rash Verified 09/11/24 10:35 clavulanic acid (From Allergy Mild Rash Verified 09/11/24 10:35 Augmentin) Home Medications ?Medication ?Instructions ?Recorded ?Confirmed ?Type Glucomanan 1 dose PO DAILY 04/28/20 09/11/24 History ascorbic acid (vitamin C) 1,000 mg 1 g PO DAILY 04/28/20 09/11/24 History tablet atorvastatin 10 mg tablet 10 mg PO DAILY 04/28/20 09/11/24 History cetirizine 10 mg tablet (Zyrtec) 10 mg PO DAILY PRN Allergy Symptoms 04/28/20 09/11/24 History levothyroxine 75 mcg tablet 50 mcg PO DAILY 04/28/20 09/11/24 History magnesium 500 mg tablet 500 mg PO DAILY 04/28/20 09/11/24 History norethindrone acetate 1 mg-ethinyl 0.5 tablet PO DAILY 04/28/20 09/11/24 History estradiol 5 mcg tablet (Jinteli) cholecalciferol (vitamin D3) 25 25 mcg PO DAILY 04/28/24 09/11/24 History mcg (1,000 unit) capsule (Vitamin D3) semaglutide (weight loss) 0.5 0.5 mg subcut WEEKLY 04/30/24 09/11/24 History mg/0.5 mL subcutaneous pen injector terbinafine HCl 250 mg tablet 250 mg PO DAILY PRN once daily for 09/11/24 09/11/24 History 7 days once a month Patient hx anesthesia problems: none Family hx anesthesia problems: none Results Review: All pre-operative results and documents have been reviewed as part of the pre-operative evaluation. [facility] Past Medical History Medical History (Updated 09/22/24 @ 08:28 by Lucian Perry DO) COPD (chronic obstructive pulmonary disease) Hypothyroid Hypertension Hyperlipidemia Family history of colon cancer in mother Adenomatous colon polyp Surgical History Surgical History (Updated 09/22/24 @ 07:30 by Sarah Santamaria MD) Status post tonsillectomy H/O right breast biopsy H/O right wrist surgery 1991 with bone graft Social History Social History Smoking packs per day: 1 Smoking cigarettes per day: 20.0 Years smoked: 32 Smoking pack-years: 32.00 Smoking status: Former smoker Tobacco type: cigarettes Smoking end date: 11/25/06 Alcohol intake: current Drinks per week: 5 Alcohol use details: BEER Substance use: never Substance use type: does not use Living arrangements: with family Spiritual care concerns: No Anes - Eval Final PreProcedure Day of Procedure 09/22/24 08:28 Patient weight: overweight Heart: regular rate and rhythm Lungs: clear to auscultation Airway: Mallampati scale class II Neurological: alert and oriented Last oral intake: >/= 8 hours ASA classification: III Emergent: no Anesthetic plan: proceed Anesthesia type and monitoring: general GIVS and standard monitoring Results Review: All pre-operative results and documents have been reviewed as part of the pre-operative evaluation. Informed Consent: The patient's anesthetic plan and its attendant risks and benefits were discussed with the patient/family/POA. Questions were solicited and answers provided to the satisfaction of the patient/family/POA.
[2024-09-22 08:30] VITALS: BP 127/85; PULSE 65; RESP 16; TEMP 37; O2SAT 100
[2024-09-22] MEDS: LACTATED RINGERS 1,000 ML 30 ML IV CONT (08:30)
[2024-09-22] MEDS: ACETAMINOPHEN 500 MG TABLET 1000 MG PO (09:00)
[2024-09-22] MEDS: KETOROLAC 15 MG/ML VIAL (*BKC) IV PUSH (09:31)
--- NOTE | 2024-09-22 09:44 | P.OP_ITS ---
Procedure Note - Detailed Date of Procedure 09/22/24 Pre-op Diagnosis Post Menopausal Bleeding Post-op Diagnosis Same Procedure Performed D&C hysteroscopy with hysteroscopic myomectomy Surgeon Sarah Santamaria MD Anesthesia MAC Findings The large fibroid filling cavity making it unable to visualize cavity. Once the fibroid removed the cavity appears atrophic. Description of Procedure The patient was taken to the operating room and placed under anesthesia in the dorsal lithotomy position. She was prepped and draped in usual sterile fashion. Baldwin speculum was placed in the vagina and the cervix grasped on the anterior lip with a tenaculum. Uterus is sounded to 7cm. The hysteroscope was placed and with the above-stated findings the Flex Aveta resection device is opened and placed. The fibroid was removed in its entirety under direct visualization. The remainder of the endometrium appears grossly atrophic so the hysteroscope was removed. The endometrium was curetted with a sharp curette until a good uterine cry was noted in all areas. Minimal material was obtained consistent with the atrophic appearance. All instruments are removed. Sponge, needle, and instrument counts are correct per the OR staff. The patient is taken to recovery in stable condition. Estimated Blood Loss 5 Drains No Packing No Pathology Yes (Shavings and curettings) Complications No immediate complications Condition Stable Disposition PACU
[2024-09-22 09:47] VITALS: BP 127/74; PULSE 72; RESP 14; O2SAT 100
[2024-09-22 10:15] VITALS: BP 131/75; PULSE 71; RESP 20
[2024-09-22 10:45] VITALS: BP 171/80; PULSE 60; RESP 20
== END 2024-09-22 11:00 | disposition home or self-care (01) ==
PROVIDERS: PCP Internal Medicine; Visit Provider Obstetrics & Gynecology Gynecology
PROC: 0U5B8ZZ Destruction of Endometrium, Via Natural or Artificial Opening Endoscopic (ICD-10-PCS; CPT 58563; principal; 2024-09-22 09:45)
DX: N85.8 Other specified noninflammatory disorders of uterus (principal); D25.9 Leiomyoma of uterus, unspecified; E03.9 Hypothyroidism, unspecified; I10 Essential (primary) hypertension; E78.5 Hyperlipidemia, unspecified; J44.9 Chronic obstructive pulmonary disease, unspecified; Z79.85 Long-term (current) use of injectable non-insulin antidiabetic drugs; Z98.890 Other specified postprocedural states; Z87.891 Personal history of nicotine dependence; Z86.0100 Personal history of colon polyps, unspecified; Z80.0 Family history of malignant neoplasm of digestive organs
CPT/HCPCS: 58561; 88305; A9270; J1885; J2003; J2250; J2405; J2704; J3010; J7120

== ENCOUNTER 2024-10-09 08:55 | Outpatient (CLI) | payer OTHER, SELFPAY ==
--- NOTE | ~2024-10-09 | MM_ITS ---
EXAMINATION: MM screening timothy BI w drew HISTORY: Screening TECHNIQUE: Craniocaudal and mediolateral oblique 3-D tomosynthesis images were obtained and synthetic 2-D images were generated. CAD analysis was submitted and interpreted. COMPARISON: Comparison to multiple prior studies sequentially, with oldest reviewed study dated 03/28. BREAST PARENCHYMAL COMPOSITION: Not dense: There are scattered areas of fibroglandular density. FINDINGS: There is a new focal asymmetry in the lower inner quadrant of the right breast, anterior th ird. The left breast is stable without evidence for malignancy. IMPRESSION: 1. New focal right breast asymmetry. 2. Additional mammographic views and possible breast ultrasound are recommended. BI-RADS Category 0: Incomplete: Needs additional imaging evaluation. Reviewed, dictated and finalized at location A. IMPRESSION: 1. New focal right breast asymmetry. 2. Additional mammographic views and possible breast ultrasound are recommended . BI-RADS Category 0: Incomplete: Needs additional imaging evaluation.
--- OUTSIDE RECORDS SUMMARY | 2024-10-09 09:01 | XMS_ITS | Encounter Summary ---
Author Organization [facility] Care Team Providers Care Pipe Stem Sawyer Name Role Phone Brigette Hernandez MD Primary Care Provider + [phone] Viktoriya Coats MD Unavailable [phone] Silver Martinez DPM, Gabriel Unavailable + [phone] Luiz Londono MD Unavailable + Sri Doll NP Unavailable Sarah Santamaria MD Unavailable [phone] Encounter Details Date Type Department Care Team (Latest Contact Info) Description 01/15/2017 Orders Only [facility] ProviderAndreas MD [address] [place] [address] Social History Tobacco Use Types Packs/Day Years Used Date Smoking Tobacco: Never Assessed Comments Unknown Sex and Gender Information Value Date Recorded Sex Assigned at Not on file Legal Sex Female 7:35 PM SERVICE CONSULTANT Gender Identity Not on file Sexual [...] on filedocumented in this encounter Care Teams Pipe Stem Sawyer Relationship Specialty Start Date End Date Brigette Hernandez MD [address] [facility] [address] [place] [address] PCP - General Internal Medicine 01/28/19 Viktoriya Coats MD [address] [facility] [address] [place] [address] Referring Physician Obstetrics and Gynecology 09/06/21 09/12/23 Blane Sheppard Jr., DPM [address] [facility] [address] [place], [place] [phone] Referring Physician Podiatry 09/06/21 Luiz Londono MD [address] [facility] [place], [place] [phone] Referring Physician Gastroenterology 09/06/21 Sri Doll, MAINTENANCE LEADER [address] [facility] [address] [place] [address] Nurse Practitioner Nurse Practitioner 09/13/23 Sarah Santamaria MD [address] [facility] [address] [place] [address] Referring Physician Gynecology 09/11/24 documented as of this encounter
--- OUTSIDE RECORDS SUMMARY | 2024-10-09 09:01 | XMS_ITS | Encounter Summary ---
Author Organization [facility] Facility Care Team Providers Care Cement Sprayer Helper Name Role Phone Brigette Hernandez MD Primary Care Provider + [phone] Viktoriya Coats MD Unavailable [phone] Silver Martinez DPM, Gabriel Unavailable + [phone] Luiz Londono MD Unavailable + Sri Doll NP Unavailable Sarah Santamaria MD Unavailable [phone] Encounter Details Date Type Department Care Team (Latest Contact Info) Description 01/04/2016 Orders Only [facility]IN[facility] ProviderAndreas MD [address] [place] [address] Social History Tobacco Use Types Packs/Day Years Used Date Smoking Tobacco: Never Assessed Comments Unknown Sex and Gender Information Value Date Recorded Sex Assigned at Not on file Legal Sex Female 7:35 PM FLUORESCENT LAMP REPLACER Gender Identity Not on file Sexual Orientation [...] on filedocumented in this encounter Care Teams Cement Sprayer Helper Relationship Specialty Start Date End Date Brigette Hernandez MD [address] [facility] [address] [place] [address] PCP - General Internal Medicine 01/28/19 Viktoriya Coats MD [address] [facility] [address] [place] [address] Referring Physician Obstetrics and Gynecology 09/06/21 09/12/23 Blane Sheppard Jr., DPM [address] [facility] [address] [place], [place] [phone] Referring Physician Podiatry 09/06/21 Luiz Londono MD [address] [facility]STR[facility]Y [place], [place] [id number] Referring Physician Gastroenterology 09/06/21 Sri Doll, PACKING HOUSE LABORER [address] [facility] [address] [place] [address] Nurse Practitioner Nurse Practitioner 09/13/23 Sarah Santamaria MD [address] [facility] [address] [place] [address] Referring Physician Gynecology 09/11/24 documented as of this encounter
--- OUTSIDE RECORDS SUMMARY | 2024-10-09 09:01 | XMS_ITS | Encounter Summary ---
Author Organization [facility] Facility Care Team Providers Care Conservation Enforcement Officer Name Role Phone Brigette Hernandez MD Primary Care Provider + [phone] Viktoriya Coats MD Unavailable [phone] Silver Martinez DPM, Gabriel Unavailable + [phone] Luiz Londono MD Unavailable + Sri Doll NP Unavailable Sarah Santamaria MD Unavailable [phone] Encounter Details Date Type Department Care Team (Latest Contact Info) Description 07/25/2017 Orders Only [facility]INCON[facility] ProviderAndreas MD [address] [place] [address] Social History Tobacco Use Types Packs/Day Years Used Date Smoking Tobacco: Never Assessed Comments Unknown Sex and Gender Information Value Date Recorded Sex Assigned at Not on file Legal Sex Female 7:35 PM FARM MANAGEMENT PROFESSOR Gender Identity Not on file Sexual Orientation Not on file documented as of this encounter Plan of Treatment Not on file documented as of this encounter Procedures Procedure Name Priority Date/Time Associated Diagnosis Comments SCAN - LABS 07/26/2017 12:00 AM FARM MANAGEMENT PROFESSOR documented in this encounter Results * SCAN - LABS (07/26/2017 12:00 AM FARM MANAGEMENT PROFESSOR) Narrative 07/26/2017 12:00 AM FARM MANAGEMENT PROFESSOR Ordered by an unspecified provider. us Historical Provider Final Res ult documented in this encounter Visit Diagnoses Not on filedocumented in this encounter Care Teams Conservation Enforcement Officer Relationship Specialty Start Date End Date Brigette Hernandez MD [address] [facility] [address] [place] [address] PCP - General Internal Medicine 01/28/19 Viktoriya Coats MD [address] [facility] [address] [place] [address] Referring Physician Obstetrics and Gynecology 09/06/21 09/12/23 Blane Sheppard Jr., DPM [address] [facility] [address] [place], [place] [phone] Referring Physician Podiatry 09/06/21 Luiz Londono MD [address] GASTRO[place]OLOGY [place], [place] [address] Referring Physician Gastroenterology 09/06/21 Sri Doll, PATTERN KEEPER [address] [facility] [address] [place], [place] [phone] Nurse Practitioner Nurse Practitioner 09/13/23 Sarah Santamaria MD [address] [facility] [address] [place] [address] Referring Physician Gynecology 09/11/24 documented as of this encounter
--- OUTSIDE RECORDS SUMMARY | 2024-10-09 09:01 | XMS_ITS | Referral Summary ---
Author Organization [facility] Address [address] [place] [address] Care Team Providers Care Quarry Worker Name Role Phone Brigette Hernandez MD Primary Care Provider + [phone] Silver Martinez DPM, Gabriel Unavailable + [phone] Luiz Londono MD Unavailable + Sri Doll NP Unavailable Sarah Santamaria MD Unavailable [phone] Encounters Date Type Department Care Team Description 10/03/2024 Telephone [facility] Primary Care [address] [place] [phone] Brigette Hernandez MD 09/22/[address] [facility] Health Information Management [address] [place] [address] Scanning, Provider 09/18/2024 Telephone [facility] Primary Care [address] [place] [phone] Brigette Hernandez MD Needs annual appt made, please 09/11/2024 9:00 AM CDT Office Visit [facility] Primary Care [address] [place] [phone] Brigette Hernandez MD Annual physical exam [...] tablet (200 mg total) daily Active coenzyme [id number] E 100-5 mg-unit capsule 100 mg daily [...] daily 90 tablet 1 03/04/20 24 Active terbinafine (LamiSIL) 250 mg tablet TAKE 1 TABLET BY MOUTH ONCE DAILY FOR 7 DAYS ONCE A MONTH 21 tablet 08/12/19 25 Active atorvastatin (LIPITOR) 10 mg tabletIndication s:Dyslipidemia Take 1 tablet by mouth once daily 90 tablet 10/09/19 25 Active olmesartan (BENICAR) 5 mg tabletIndication s:Essential (primary) hypertension Take 1 tablet (5 mg total) by mouth daily 90 tablet 3 03/04/20 24 025 Discontinued(Th erapy completed) atorvastatin (LIPITOR) 10 mg tabletIndication s:Dyslipidemia Take 1 tablet by mouth once daily 90 tablet 07/14/19 25 025 Discontinued Active Problems Problem Noted Date Diagnosed Date Abnormal vaginal bleeding 09/11/2024 Assessment & Plan (09/11/2024 9:21 AM CDT): Under the care of GOVERNMENT DOCUMENTS LIBRARIAN Dr Santamaria will be having a hysteroscopy [...] and establishing or updating healthcare power of chemical dependency attendant document and providing our office with a [...] and establishing or updating healthcare power of chemical dependency attendant document and providing our office with a [...] and establishing or updating healthcare power of chemical dependency attendant document and providing our office with a copy. Assessment & Plan (05/31/2020 4:03 PM PILE DRIVER): Wear sunscreen with SPF over 50 while [...] 03/29/2020 Assessment & Plan (05/31/2020 4:13 PM PILE DRIVER): Resolved, took 2 mos for the pain [...] repeated Assessment & Plan (05/31/2020 4:03 PM PILE DRIVER): Stable on statin. Ff low chol diet Assessment & Plan (04/01/2019 9:45 PM PILE DRIVER): Cont atorvastatin at current dose, last july [...] diet Assessment & Plan (05/31/2020 4:03 PM PILE DRIVER): BP is controlled, cont current dose Ff low sodium diet Assessment & Plan (04/01/2019 9:44 PM PILE DRIVER): Follow low sodium DASH Diet. Exercise regularly [...] order Assessment & Plan (05/31/2020 4:24 PM PILE DRIVER): Cont current dose is euthyroid Report if has frequent palpitations, irreg heart beat or sudden changes in weight. Report if develops problem swallowing or hoarseness Assessment & Plan (04/01/2019 9:46 PM PILE DRIVER): Cont current 75mcg dose pending TSH level [...] 04/2024 Assessment & Plan (05/31/2020 4:08 PM PILE DRIVER): Colonoscopy- Numerous diverticuli throughout entire colon and small polyp cecum (Dr. Dailey) 09/11/2014 05/07/2020 DR Salgado, 5 polyps removed, diverticuli and int hemorrhoids on a 4 yr ff up now Assessment & Plan (04/01/2019 9:50 PM PILE DRIVER): Colonoscopy due 08/2019 Resolved Problems Problem Noted Date Diagnosed Date Resolved Date Boil of leg except foot 09/06/202112/2023 Assessment & Plan (09/06/2021 2:43 PM CDT): [...] on file Legal Sex Female 7:35 PM PILE DRIVER Gender Identity Not on file Sexual Orientation [...] Priority Date/Time Associated Diagnosis Comments SCAN - PATHOLOGY 09/22/2024 COLONOSCOPY Routine 05/09/2024 MAMMOGRAPHY Routine 10/04/2023 HEPATITIS C SCREENING Routine 10/05/2022 PAP SMEAR WITH HPV Routine 03/16/2020 from Last 3 Months or Most Recently Relevant to Health Maintenance Results * SCAN - PATHOLOGY (09/22/2024) us Provider Scanning Final Result * COLONOSCOPY (05/09/2024) Scribed HM Colonoscopy Normal Historical Provider HEALTH MAINTENANCE Final Result * HM MAMMOGRAPHY (10/04/2023) Mammography Normal Historical Provider HEALTH MAINTENANCE Final Result * HEPATITIS C SCREENING (10/05/2022) SCRIBED HCV ab NEGATIVE Historical Provider HEALTH MAINTENANCE Edited Result - Final * PAP SMEAR WITH HPV (03/16/2020) [facility] Provider HEALTH MAINTENANCE Final Result from Last 3 Months or Most Recently Relevant to Health Maintenance Insurance [facility] Address: [address] [address] [facility] Address: [address] [place] [address] Care Teams Quarry Worker Relationship Specialty Start Date End Date Brigette Hernandez MD [address] [place] [address] PCP - General Internal Medicine 01/28/19 Blane Sheppard Jr., DPM [address] [place] [address] Referring Physician Podiatry 09/06/21 Luiz Londono MD [address] [facility] 204 [place] [address] Referring Physician Gastroenterology 09/06/21 Sri Doll, FARMER CASH GRAIN [address] [address] Nurse Practitioner Nurse Practitioner 09/13/23 Sarah Santamaria MD [address] [address] Referring Physician Gynecology 09/11/24
--- OUTSIDE RECORDS SUMMARY | 2024-10-09 09:01 | XMS_ITS | Clinical Summary ---
Author Organization [facility] Address [address] [place] [address] Care Team Providers Care Team Facilitator Name Role Phone Unavailable Primary Care Provider [...]
--- OUTSIDE RECORDS SUMMARY | 2024-10-09 09:01 | XMS_ITS | Encounter Summary ---
Author Organization [facility] Facility Care Team Providers Care Head Holder Name Role Phone Brigette Hernandez MD Primary Care Provider + [phone] Viktoriya Coats MD Unavailable [phone] Silver Martinez DPM, Gabriel Unavailable + [phone] Luiz Londono MD Unavailable + Sri Doll NP Unavailable Sarah Santamaria MD Unavailable +[phone] Encounter Details Date Type Department Care Team (Latest Contact Info) Description 07/13/2016 Orders Only [facility] ProviderAndreas MD [address] [place] [address] Social History Tobacco Use Types Packs/Day Years Used Date Smoking Tobacco: Never Assessed Comments Unknown Sex and Gender Information Value Date Recorded Sex Assigned at Not on file Legal Sex Female 7:35 PM GRINDER BRAKE LINING Gender Identity Not on file Sexual Orientation Not on file documented as of this encounter Plan of Treatment Not on file documented as of this encounter Procedures Procedure Name Priority Date/Time Associated Diagnosis Comments SCAN - LABS 07/26/2016 12:00 AM GRINDER BRAKE LINING documented in this encounter Results * SCAN - LABS (07/26/2016 12:00 AM GRINDER BRAKE LINING) Narrative 07/26/2016 12:00 AM GRINDER BRAKE LINING Ordered by an unspecified provider. us Historical Provider Final Res ult documented in this encounter Visit Diagnoses Not on filedocumented in this encounter Care Teams Head Holder Relationship Specialty Start Date End Date Brigette Hernandez MD [address] [facility] [address] [place] [address] PCP - General Internal Medicine 01/28/19 Viktoriya Coats MD [address] [facility] [address] [place] [address] Referring Physician Obstetrics and Gynecology 09/06/21 09/12/23 Blane Sheppard Jr., DPM [address] [facility] [address] [place], [place] [phone] Referring Physician Podiatry 09/06/21 Luiz Londono MD [address] GASTROENTEROLOGY [place], [place] [phone] Referring Physician Gastroenterology 09/06/21 Sri Doll, SPINNING ROOM WORKER [address] [facility] [address] [place], [place] [phone] Nurse Practitioner Nurse Practitioner 09/13/23 Sarah Santamaria MD [address] [facility] [address] [place] [address] Referring Physician Gynecology 09/11/24 documented as of this encounter
--- OUTSIDE RECORDS SUMMARY | 2024-10-09 09:01 | XMS_ITS | Encounter Summary ---
Author Organization [facility] Facility Care Team Providers Care House Wirer Name Role Phone Brigette Hernandez MD Primary Care Provider + [phone] Viktoriya Coats MD Unavailable +[phone] Silver Martinez DPM, Gabriel Unavailable + [phone] Luiz Londono MD Unavailable + Sri Doll NP Unavailable Sarah Santamaria MD Unavailable +[phone] Encounter Details Date Type Department Care Team (Latest Contact Info) Description 08/06/2018 Orders Only [facility] CLINCONV ProviderAndreas MD [address] [place] [address] Social History Tobacco Use Types Packs/Day Years Used Date Smoking Tobacco: Never Assessed Comments Unknown Sex and Gender Information Value Date Recorded Sex Assigned at Not on file Legal Sex Female 7:35 PM FOOD PRODUCT INSPECTOR Gender Identity Not on file Sexual [...] on filedocumented in this encounter Care Teams House Wirer Relationship Specialty Start Date End Date Brigette Hernandez MD [address] [facility] 250 [place] [address] PCP - General Internal Medicine 01/28/19 Viktoriya Coats MD [address] [facility] 908 [place] [address] Referring Physician Obstetrics and Gynecology 09/06/21 09/12/23 Blane Sheppard Jr., DPM [address] [facility] [address] [place], [place] [id number] Referring Physician Podiatry 09/06/21 Luiz Londono MD [address] GASTROENTEROLOGY [place], [place] [id number] Referring Physician Gastroenterology 09/06/21 Sri Doll, CHEMICAL INSPECTOR [address] 200 [place] [address] Nurse Practitioner Nurse Practitioner 09/13/23 Sarah Santamaria MD [address] 200 [place] [address] Referring Physician Gynecology 09/11/24 documented as of this encounter
--- OUTSIDE RECORDS SUMMARY | 2024-10-09 09:01 | XMS_ITS | Encounter Summary ---
Author Organization [facility] Facility Care Team Providers Care Strategic Consultant Name Role Phone Brigette Hernandez MD Primary Care Provider + [phone] Viktoriya Coats MD Unavailable +[phone] Silver Martinez DPM, Gabriel Unavailable + [phone] Luiz Londono MD Unavailable + Sri Doll NP Unavailable Sarah Santamaria MD Unavailable +[phone] Encounter Details Date Type Department Care Team (Latest Contact Info) Description 09/06/2015 Orders Only [facility] CLINCONV ProviderAndreas MD [address] [place] [address] Social History Tobacco Use Types Packs/Day Years Used Date Smoking Tobacco: Never Assessed Comments Unknown Sex and Gender Information Value Date Recorded Sex Assigned at Not on file Legal Sex Female 7:35 PM PUFF IRON OPERATOR Gender Identity Not on file Sexual [...] on filedocumented in this encounter Care Teams Strategic Consultant Relationship Specialty Start Date End Date Brigette Hernandez MD [address] [facility] 250 [place] [address] PCP - General Internal Medicine 01/28/19 Viktoriya Coats MD [address] [facility] 908 [place] [address] Referring Physician Obstetrics and Gynecology 09/06/21 09/12/23 Blane Sheppard Jr., DPM [address] [facility] [address] [place], [place] [phone] Referring Physician Podiatry 09/06/21 Luiz Londono MD [address] GASTROENTEROLOGY [place], [place] [address] Referring Physician Gastroenterology 09/06/21 Sri Doll, RUG MEASURER [address] [facility] 200 [place] [address] Nurse Practitioner Nurse Practitioner 09/13/23 Sarah Santamaria MD [address] [facility] 200 [place] [address] Referring Physician Gynecology 09/11/24 documented as of this encounter
--- OUTSIDE RECORDS SUMMARY | 2024-10-09 09:01 | XMS_ITS | Encounter Summary ---
Author Organization [facility] Facility Care Team Providers Care Telecommunication Lines Repairer Name Role Phone Brigette Hernandez MD Primary Care Provider + [phone] Viktoriya Coats MD Unavailable +[phone] Silver Martinez DPM, Gabriel Unavailable + [phone] Luiz Londono MD Unavailable + Sri Doll NP Unavailable Sarah Santamaria MD Unavailable [phone] Encounter Details Date Type Department Care Team (Latest Contact Info) Description 07/07/2016 Orders Only [facility] CLINCONV ProviderAndreas MD [address] [place] [address] Social History Tobacco Use Types Packs/Day Years Used Date Smoking Tobacco: Never Assessed Comments Unknown Sex and Gender Information Value Date Recorded Sex Assigned at Not on file Legal Sex Female 7:35 PM SURVEY ANALYST Gender Identity Not on file Sexual Orientation Not on file documented as of this encounter Plan of Treatment Not on file documented as of this encounter Procedures Procedure Name Priority Date/Time Associated Diagnosis Comments SCAN - LABS 07/26/2016 12:00 AM SURVEY ANALYST documented in this encounter Results * SCAN - LABS (07/26/2016 12:00 AM SURVEY ANALYST) Narrative 07/26/2016 12:00 AM SURVEY ANALYST Ordered by an unspecified provider. us Historical Provider Final Res ult documented in this encounter Visit Diagnoses Not on filedocumented in this encounter Care Teams Telecommunication Lines Repairer Relationship Specialty Start Date End Date Brigette Hernandez MD 1418 [facility] 250 [place] [address] PCP - General Internal Medicine 01/28/19 Viktoriya Coats MD [address] [facility] 908 [place] [address] Referring Physician Obstetrics and Gynecology 09/06/21 09/12/23 Blane Sheppard Jr., DPM [address] [facility] [address] [place], [place] [address] Referring Physician Podiatry 09/06/21 uLiz Londono MD [address] GASTROENTEROLOGY [place], [place] [address] Referring Physician Gastroenterology 09/06/21 Sri Doll, ENGINEERING ANALYST [address] [facility] 200 [place], [place] [phone] Nurse Practitioner Nurse Practitioner 09/13/23 Sarah Santamaria MD [address] [facility] 200 [place] [address] Referring Physician Gynecology 09/11/24 documented as of this encounter
--- OUTSIDE RECORDS SUMMARY | 2024-10-09 09:01 | XMS_ITS | Encounter Summary ---
Author Organization [facility] Facility Care Team Providers Care Site Controller Name Role Phone Brigette Hernandez MD Primary Care Provider + [phone] Viktoriya Coats MD Unavailable +[phone] Silver Martinez DPM, Gabriel Unavailable + [phone] Luiz Londono MD Unavailable + Sri Doll NP Unavailable Sarah Santamaria MD Unavailable [phone] Encounter Details Date Type Department Care Team (Latest Contact Info) Description 03/25/2015 Orders Only [facility] CLINCONV ProviderAndreas MD [address] [place] [address] Social History Tobacco Use Types Packs/Day Years Used Date Smoking Tobacco: Never Assessed Comments Unknown Sex and Gender Information Value Date Recorded Sex Assigned at Not on file Legal Sex Female 7:35 PM ADMISSIONS SPECIALIST Gender Identity Not on file Sexual Orientation [...] on filedocumented in this encounter Care Teams Site Controller Relationship Specialty Start Date End Date Brigette Hernandez MD 14[address] [facility] 250 [place] [address] PCP - General Internal Medicine 01/28/19 Viktoriya Coats MD [address] [facility] 908 [place] [address] Referring Physician Obstetrics and Gynecology 09/06/21 09/12/23 Blane Sheppard Jr., DPM [address] [facility] 908 [place], [place] [phone] Referring Physician Podiatry 09/06/21 Luiz Londono MD [address] GASTROENTEROLOGY [place], [place] [address] Referring Physician Gastroenterology 09/06/21 Sri Doll, SPRING ASSEMBLER SUPERVISOR [address] [facility] 200 [place] [address] Nurse Practitioner Nurse Practitioner 09/13/23 Sarah Santamaria MD [address] [facility] 200 [place] [address] Referring Physician Gynecology 09/11/24 documented as of this encounter
--- OUTSIDE RECORDS SUMMARY | 2024-10-09 09:01 | XMS_ITS | Encounter Summary ---
Author Organization [facility] Address [address] [place] [address] Care Team Providers Care Content Checker Name Role Phone Unavailable Primary Care Provider Unavailabl e Encounter Details Date Type Department Care Team (Late st Contact Info) Description 11/02/2018 Abstract [facility] CONVERSION [address] [place], [place] [id number] , Generic Conversion, Social History Tobacco Use [...]
--- OUTSIDE RECORDS SUMMARY | 2024-10-09 09:01 | XMS_ITS | Encounter Summary ---
Author Organization [facility] Facility Care Team Providers Care Chuck Wagon Cook Name Role Phone Brigette Hernandez MD Primary Care Provider + [phone] Viktoriya Coats MD Unavailable +[phone] Silver Martinez DPM, Gabriel Unavailable + [phone] Luiz Londono MD Unavailable + Sri Doll NP Unavailable Sarah Santamaria MD Unavailable [phone] Encounter Details Date Type Department Care Team (Latest Contact Info) Description 03/16/2016 Orders Only [facility] CLINCONV ProviderAndreas MD [address] [place] [address] Social History Tobacco Use Types Packs/Day Years Used Date Smoking Tobacco: Never Assessed Comments Unknown Sex and Gender Information Value Date Recorded Sex Assigned at Not on file Legal Sex Female 7:35 PM STONE CHIMNEY MASON Gender Identity Not on file Sexual Orientation Not on file documented as of this encounter Plan of Treatment Not on file documented as of this encounter Procedures Procedure Name Priority Date/Time Associated Diagnosis Comments SCAN - LABS 04/17/2016 12:00 AM STONE CHIMNEY MASON documented in this encounter Results * SCAN - LABS (04/17/2016 12:00 AM STONE CHIMNEY MASON) Narrative 04/17/2016 12:00 AM STONE CHIMNEY MASON Ordered by an unspecified provider. us Historical Provider Final Res ult documented in this encounter Visit Diagnoses Not on filedocumented in this encounter Care Teams Chuck Wagon Cook Relationship Specialty Start Date End Date Brigette Hernandez MD [address] [facility] 250 [place] [address] PCP - General Internal Medicine 01/28/19 Viktoriya Coats MD [address] [facility] 908 [place] [address] Referring Physician Obstetrics and Gynecology 09/06/21 09/12/23 Blane Sheppard Jr., DPM [address] [facility] [address]08 [place], [place] [address] Referring Physician Podiatry 09/06/21 Luiz Londono MD [address] GASTROENTEROLOGY [place], [place] [address] Referring Physician Gastroenterology 09/06/21 Sri Doll, RN PEDIATRIC ICU [address] [facility] 200 [place], [place] [address] Nurse Practitioner Nurse Practitioner 09/13/23 Sarah Santamaria MD [address] [facility] 200 [place] [address] Referring Physician Gynecology 09/11/24 documented as of this encounter
--- OUTSIDE RECORDS SUMMARY | 2024-10-09 09:01 | XMS_ITS | Encounter Summary ---
Author Organization [facility] Facility Care Team Providers Care Manufacturing Lead Name Role Phone Brigette Hernandez MD Primary Care Provider + [phone] Viktoriya Coats MD Unavailable [phone] Silver Martinez DPM, Gabriel Unavailable + [phone] Luiz Londono MD Unavailable + Sri Doll NP Unavailable Sarah Santamaria MD Unavailable [phone] Encounter Details Date Type Department Care Team (Latest Contact Info) Description 01/02/2018 Orders Only [facility] CLINCONV ProviderAndreas MD [address] [place] [address] Social History Tobacco Use Types Packs/Day Years Used Date Smoking Tobacco: Never Assessed Comments Unknown Sex and Gender Information Value Date Recorded Sex Assigned at Not on file Legal Sex Female 7:35 PM LEASING SPECIALIST Gender Identity Not on file Sexual [...] on filedocumented in this encounter Care Teams Manufacturing Lead Relationship Specialty Start Date End Date Brigette Hernandez MD [address] [facility] 250 [place] [address] PCP - General Internal Medicine 01/28/19 Viktoriya Coats MD [address] [facility] 908 [place] [address] Referring Physician Obstetrics and Gynecology 09/06/21 09/12/23 Blane Sheppard Jr., DPM [address] [facility] [address] [place], [place] [phone] Referring Physician Podiatry 09/06/21 Luiz Londono MD [address] GASTROENTEROLOGY [place], [place] [address] Referring Physician Gastroenterology 09/06/21 Sri Doll, JAVA PROJECT MANAGER [address] [facility] 200 [place] [address] Nurse Practitioner Nurse Practitioner 09/13/23 Sarah Santamaria MD [address] [facility] 200 [place] [address] Referring Physician Gynecology 09/11/24 documented as of this encounter
--- OUTSIDE RECORDS SUMMARY | 2024-10-09 09:01 | XMS_ITS | Clinical Summary ---
Author Organization [facility] Address [address] [place] [address] Care Team Providers Care Fisher Trawl Net Name Role Phone Brigette Hernandez MD Primary Care Provider + [phone] Silver Martinez DPM, Gabriel Unavailable + [phone] Luiz Londono MD Unavailable + Sri Doll NP Unavailable Sarah Santamaria MD Unavailable [phone] Allergies Active Allergy Reactions Criticality Noted Date Comments Amoxicillin Rash Medium 01/08/2019 rash Amoxicillin-Pot Clavulanate Rash Medium 01/09/20 19 rash clavulanic acid Medications fluticasone propionate (FLONASE) 50 mcg/actuation nasal spray daily Active magnesium gluconate 200 mg tablet 1 tablet (200 mg total) daily Active coenzyme [id number] E 100-5 mg-unit capsule 100 mg daily [...] 9:21 AM CDT): Under the care of PRICING DIRECTOR Dr Santamaria will be having a hysteroscopy [...] and establishing or updating healthcare power of attorney lawyer document and providing our office with a [...] and establishing or updating healthcare power of attorney lawyer document and providing our office with a [...] and establishing or updating healthcare power of attorney lawyer document and providing our office with a copy. Assessment & Plan (05/31/2020 4:03 PM VALUE STREAM MANAGER): Wear sunscreen with SPF over 50 while [...] 03/29/2020 Assessment & Plan (05/31/2020 4:13 PM VALUE STREAM MANAGER): Resolved, took 2 mos for the pain [...] repeated Assessment & Plan (05/31/2020 4:03 PM VALUE STREAM MANAGER): Stable on statin. Ff low chol diet Assessment & Plan (04/01/2019 9:45 PM VALUE STREAM MANAGER): Cont atorvastatin at current dose, last july [...] diet Assessment & Plan (05/31/2020 4:03 PM VALUE STREAM MANAGER): BP is controlled, cont current dose Ff low sodium diet Assessment & Plan (04/01/2019 9:44 PM VALUE STREAM MANAGER): Follow low sodium DASH Diet. Exercise regularly [...] order Assessment & Plan (05/31/2020 4:24 PM VALUE STREAM MANAGER): Cont current dose is euthyroid Report if has frequent palpitations, irreg heart beat or sudden changes in weight. Report if develops problem swallowing or hoarseness Assessment & Plan (04/01/2019 9:46 PM VALUE STREAM MANAGER): Cont current 75mcg dose pending TSH level [...] 04/2024 Assessment & Plan (05/31/2020 4:08 PM VALUE STREAM MANAGER): Colonoscopy- Numerous diverticuli throughout entire colon and small polyp cecum (Dr. Dailey) 09/11/2014 05/07/2020 DR Salgado, 5 polyps removed, diverticuli and int hemorrhoids on a 4 yr ff up now Assessment & Plan (04/01/2019 9:50 PM VALUE STREAM MANAGER): Colonoscopy due 08/2019 Resolved Problems Problem Noted Date Diagnosed Date Resolved Date Boil of leg except foot 09/06/2021 10/0 12/2023 Assessment & Plan (09/06/2021 2:43 PM CDT): Still with redness and inflammation Start Doxycycline 100 mg bid x 7-10 days Call if worsens Lipoma 04/01/2019 04/01/2019 Encounters Date Type Department Care Team Description 10/03/2024 Telephone [facility] Primary Care [address] [place] [address] [place] [phone] Brigette Hernandez MD 09/22/2024 Orders Only [facility] Health Information Management [address] [place] [address] Scanning, Provider 09/18/2024 Telephone [facility] Primary Care [address] [place] [address] [place] [phone] Brigette Hernandez MD Needs annual appt made, please 09/11/2024 9:00 AM CDT Office Visit [facility] Primary Care [address] [place] [address] [place] [phone] Brigette Hernandez MD Annual physical exam [...] on file Legal Sex Female 7:35 PM VALUE STREAM MANAGER Gender Identity Not on file Sexual [...] Maintenance Results * SCAN - PATHOLOGY (09/22/2024) Provider Scanning Final Result * COLONOSCOPY (05/09/2024) Scribed Colonoscopy Normal [facility] Provider HEALTH MAINTENANCE Final Result * MAMMOGRAPHY (10/04/2023) Mammography Normal [facility] Provider HEALTH MAINTENANCE Final Result * HEPATITIS C SCREENING (10/05/2022) SCRIBED HCV ab NEGATIVE Result [facility] Provider HEALTH MAINTENANCE Edited Result - Final * PAP SMEAR WITH HPV (03/16/2020) Result [facility] Provider HEALTH MAINTENANCE Final Result from Last 3 Months or Most Recently Relevant to Health Maintenance Insurance Care Teams Fisher Trawl Net Relationship Specialty Start Date End Date Brigette Hernandez MD [address] [place] [address] PCP - General Internal Medicine 01/28/19 Blane Sheppard Jr., DPM [address] [place] [address] Referring Physician Podiatry 09/06/21 Luiz Londono MD [address] [place] [address] Referring Physician Gastroenterology 09/06/21 Sri Doll NP [address] [facility] 200 [place] [address] Nurse Practitioner Nurse Practitioner 09/13/23 Sarah Santamaria MD [address] [facility] [address] [place] [address] Referring Physician Gynecology 09/11/24
--- OUTSIDE RECORDS SUMMARY | 2024-10-09 09:01 | XMS_ITS | Encounter Summary ---
Author Organization [facility] Facility Care Team Providers Care Refinery Operator Helper Crude Unit Name Role Phone Brigette Hernandez MD Primary Care Provider + [phone] Viktoriya Coats MD Unavailable [phone] Silver Martinez DPM, Gabriel Unavailable + [phone] Luiz Londono MD Unavailable + Sri Doll NP Unavailable Sarah Santamaria MD Unavailable [phone] Encounter Details Date Type Department Care Team (Latest Contact Info) Description 07/26/2016 Orders Only [facility] CLINCONV ProviderAndreas MD [address] [place] [address] Social History Tobacco Use Types Packs/Day Years Used Date Smoking Tobacco: Never Assessed Comments Unknown Sex and Gender Information Value Date Recorded Sex Assigned at Not on file Legal Sex Female 7:35 PM CONTROL ROOM HELPER Gender Identity Not on file Sexual Orientation Not on file documented as of this encounter Plan of Treatment Not on file documented as of this encounter Procedures Procedure Name Priority Date/Time Associated Diagnosis Comments COLONOSCOPY - SCAN 07/26/2016 12 :00 AM CONTROL ROOM HELPER documented in this encounter Results * COLONOSCOPY - SCAN (07/26/2016 12:00 AM CONTROL ROOM HELPER) Narrative 07/26/2016 12:00 AM CONTROL ROOM HELPER Ordered by an unspecified provider. us Historical Provider Final Res ult documented in this encounter Visit Diagnoses Not on filedocumented in this encounter Care Teams Refinery Operator Helper Crude Unit Relationship Specialty Start Date End Date Brigette Hernandez MD 1418 [facility] 250 [place] [address] PCP - General Internal Medicine 01/28/19 Viktoriya Coats MD [address] [facility] 908 [place] [address] Referring Physician Obstetrics and Gynecology 09/06/21 09/12/23 Blane Sheppard Jr., DPM [address] [facility] [address]08 [place], [place] [phone] Referring Physician Podiatry 09/06/21 Luiz Londono MD [address] GASTROENTEROLOGY [place], [place] [address] Referring Physician Gastroenterology 09/06/21 Sri Doll, ASSISTANT CORPORATION COUNSEL [address] [facility] 200 [place], [place] [phone] Nurse Practitioner Nurse Practitioner 09/13/23 Sarah Santamaria MD [address] [facility] 200 [place] [address] Referring Physician Gynecology 09/11/24 documented as of this encounter
--- OUTSIDE RECORDS SUMMARY | 2024-10-09 09:01 | XMS_ITS | Encounter Summary ---
Author Organization [facility] Address [address] [place] [address] Care Team Providers Care Certified Pedorthotist Name Role Phone Brigette Hernandez MD Primary Care Provider + [phone] Silver Martinez DPM, Gabriel Unavailable + [phone] Luiz Londono MD Unavailable + Sri Doll NP Unavailable Sarah Santamaria MD Unavailable +[phone] Encounter Details Date Type Department Care Team (Late st Contact Info) Description 09/22/2024 Orders Only [facility] Health Information Management [address] [place] [address] Scanning, Provider Social History Tobacco Use Types Packs/Day Years [...] on file Legal Sex Female 7:35 PM PHARMACY RETAIL SUPPORT SPECIALIST Gender Identity Not on file Sexual Orientation Not on file documented as of this encounter Plan of Treatment Not on file documented as of this encounter Procedures Procedure Name Priority Date/Time Associated Diagnosis Comments SCAN - PATHOLOGY 09/22/2024 documented in this encounter Results * SCAN - PATHOLOGY (09/22/2024) us Provider Scanning Final Result documented in this encounter Visit Diagnoses Not on filedocumented in this encounter Care Teams Certified Pedorthotist Relationship Specialty Start Date End Date Brigette Hernandez MD [address] [place] [address] PCP - General Internal Medicine 01/28/19 Blane Sheppard Jr., DPM [address] [place] [address] Referring Physician Podiatry 09/06/21 Luiz Londono MD [address] [place] [address] Referring Physician Gastroenterology 09/06/21 Sri Doll, INSULATION HOSEMAN [address] [facility] [address] [place] [address] Nurse Practitioner Nurse Practitioner 09/13/23 Sarah Santamaria MD [address] [facility] [address] [place] [address] Referring Physician Gynecology 09/11/24 documented as of this encounter
== END 2024-10-09 08:56 | disposition home or self-care (01) ==
LOC: ANHIMG 08:58
PROVIDERS: PCP Internal Medicine; Visit Provider Nurse Practitioner
DX: Z12.31 Encounter for screening mammogram for malignant neoplasm of breast (principal); R92.8 Other abnormal and inconclusive findings on diagnostic imaging of breast
CPT/HCPCS: 77063; 77067

== ENCOUNTER 2024-10-23 13:14 | Outpatient (CLI) | payer OTHER, SELFPAY ==
--- NOTE | ~2024-10-23 | US_ITS ---
Pelvic ultrasound. Clinical History: Postmenopausal bleeding Technique: Realtime transabdominal and transvaginal scanning of the pelvis was performed. Color flow Doppler and Doppler spectral analysis were performed. Findings: The uterus is anteverted, and measures 6.6 x 2.9 x 4.7 cm. The endometrial stripe has a th ickness of 7 mm. Probably uterine fibroid measures 2.8 x 2.5 x 2.8 cm.. Neither ovary seen. No other adnexal mass seen.. There is no evidence of free fluid in the cul de sac. Impression: 2.8 cm uterine fibroid, probably partially submucosal. Endometrial stripe measures 7 mm in thickness, borderline thickened. Consider further evaluation for endometrial hyperplasia or endometrial neoplasm is indicated. Reviewed, dictated and finalized at [facility]. Impression: 2.8 cm uterine fibroid, probably partially submucosal. Endometrial stripe measures 7 mm in thickness, borderline thickened. Consider f urther evaluation for endometrial hyperplasia or endometrial neoplasm is indica delio.
== END 2024-10-23 13:15 | disposition home or self-care (01) ==
LOC: GOSHIMG 13:14
PROVIDERS: PCP Internal Medicine; Visit Provider Obstetrics & Gynecology Gynecology
DX: R93.89 Abnormal findings on diagnostic imaging of other specified body structures (principal); D25.9 Leiomyoma of uterus, unspecified; N95.0 Postmenopausal bleeding
CPT/HCPCS: 76830; 76856

== ENCOUNTER 2024-10-30 13:22 | Outpatient (CLI) | payer OTHER, SELFPAY ==
--- NOTE | ~2024-10-30 | MMUS_ITS ---
Examination: MM diagnostic DEBBIE RT W drew and US breast RT limited INDICATION: 64-year old female; BI-RADS 0, focal asymmetry right breast COMPARISON: 10/09/2024 TECHNIQUE: Digital breast tomosynthesis True lateral and spot compression views of Right breast were obtained with computer-aided detection to assist in interpretation of the study. FINDINGS: There are scattered areas of fibroglandular density. The focal asymmetry seen in the lower inner subareolar Right breast breast on the previous screening mammogram does not persist on additional views. Right breast ultrasound findings: Targeted evaluation of the lower inner subareolar region shows prominent dilated ducts containing tamiko ar fluid. No suspicious solid or cystic mass is identified. IMPRESSION: Right breast focal asymmetry represents superimposition of fibroglandular tissue. No further investig ation necessary. RECOMMENDATION: Annual screening mammography BI-RADS 2, BENIGN Reviewed, dictated and finalized at location B. IMPRESSION: Right breast focal asymmetry represents superimposition of fibroglandular tissu e. No further investigation necessary. RECOMMENDATION: Annual screening mammography BI-RADS 2, BENIGN
--- OUTSIDE RECORDS SUMMARY | 2024-10-30 14:00 | XMS_ITS | Encounter Summary ---
Author Organization [facility] Facility Care Team Providers Care Evaporator Name Role Phone Brigette Hernandez MD Primary Care Provider + [phone] Viktoriya Coats MD Unavailable +[phone] Silver Martinez DPM, Gabriel Unavailable + [phone] Luiz Londono MD Unavailable + Sri Doll NP Unavailable Sarah Santamaria MD Unavailable +[phone] Encounter Details Date Type Department Care Team (Latest Contact Info) Description 07/26/2016 Orders Only [facility] ProviderAndreas MD [address] [place] [address] Social History Tobacco Use Types Packs/Day Years Used Date Smoking Tobacco: Never Assessed Comments Unknown Sex and Gender Information Value Date Recorded Sex Assigned at Not on file Legal Sex Female 7:35 PM DIRECT MARKETING MANAGER Gender Identity Not on file Sexual Orientation Not on file documented as of this encounter Plan of Treatment Not on file documented as of this encounter Procedures Procedure Name Priority Date/Time Associated Diagnosis Comments COLONOSCOPY - SCAN 07/26/2016 12 :00 AM DIRECT MARKETING MANAGER documented in this encounter Results * COLONOSCOPY - SCAN (07/26/2016 12:00 AM DIRECT MARKETING MANAGER) Narrative 07/26/2016 12:00 AM DIRECT MARKETING MANAGER Ordered by an unspecified provider. us Historical Provider Final Res ult documented in this encounter Visit Diagnoses Not on filedocumented in this encounter Care Teams Evaporator Relationship Specialty Start Date End Date Brigette Hernandez MD [address] [facility] 250 [place] [address] PCP - General Internal Medicine 01/28/19 Viktoriya Coats MD [address] [facility] [address] [place] [address] Referring Physician Obstetrics and Gynecology 09/06/21 09/12/23 Blane Sheppard Jr., DPM [address] [facility] [address] [place], [place] [phone] Referring Physician Podiatry 09/06/21 Luiz Londono MD [address] GASTROENTEROLOGY [place], [place] [phone] Referring Physician Gastroenterology 09/06/21 Sri Doll, CITY SUPERVISOR [address] [facility] [address] [place], [place] [phone] Nurse Practitioner Nurse Practitioner 09/13/23 Sarah Santamaria MD [address] [facility] 200 [place] [address] Referring Physician Gynecology 09/11/24 documented as of this encounter
--- OUTSIDE RECORDS SUMMARY | 2024-10-30 14:00 | XMS_ITS | Encounter Summary ---
Author Organization [facility] Facility Care Team Providers Care Park Attendant Name Role Phone Brigette Hernandez MD Primary Care Provider + [phone] Viktoriya Coats MD Unavailable +[phone] Silver Martinez DPM, Gabriel Unavailable + [phone] Luiz Londono MD Unavailable + Sri Doll NP Unavailable Sarah Santamaria MD Unavailable +[phone] Encounter Details Date Type Department Care Team (Latest Contact Info) Description 01/15/2017 Orders Only [facility] ProviderAndreas MD [address] [place] [address] Social History Tobacco Use Types Packs/Day Years Used Date Smoking Tobacco: Never Assessed Comments Unknown Sex and Gender Information Value Date Recorded Sex Assigned at Not on file Legal Sex Female 7:35 PM IRON MINER BLASTING Gender Identity Not on file Sexual Orientation [...] on filedocumented in this encounter Care Teams Park Attendant Relationship Specialty Start Date End Date Brigette Hernandez MD [address] [facility] 250 [place] [address] PCP - General Internal Medicine 01/28/19 Viktoriya Coats MD [address] [facility] [address] [place] [address] Referring Physician Obstetrics and Gynecology 09/06/21 09/12/23 Blane Sheppard Jr., DPM [address] [facility] [address] [place], [place] [phone] Referring Physician Podiatry 09/06/21 Luiz Londono MD [address] GASTROENTEROLOGY [place], [place] [address] Referring Physician Gastroenterology 09/06/21 Sri Doll, ANESTHESIA RESIDENT [address] [facility] [address] [place] [address] Nurse Practitioner Nurse Practitioner 09/13/23 Sarah Santamaria MD [address] [facility] [address] [place] [address] Referring Physician Gynecology 09/11/24 documented as of this encounter
--- OUTSIDE RECORDS SUMMARY | 2024-10-30 14:00 | XMS_ITS | Encounter Summary ---
Author Organization [facility] Healthcare Address [address] [place] [address] Care Team Providers Care Emergency Medical Technician Basic Name Role Phone Brigette Hernandez MD Primary Care Provider + [phone] Silver Martinez DPM, Gabriel Unavailable + [phone] Luiz Londono MD Unavailable + Sri Doll NP Unavailable Sarah Santamaria MD Unavailable +[phone] Encounter Details Date Type Department Care Team (Late st Contact Info) Description 09/22/2024 Orders Only [facility] Health Information Management [address] [place] [address] Scanning, Provider Social History Tobacco Use Types [...] on file Legal Sex Female 7:35 PM CHARTER COORDINATOR Gender Identity Not on file Sexual [...] on filedocumented in this encounter Care Teams Emergency Medical Technician Basic Relationship Specialty Start Date End Date Brigette Hernandez MD [address] [place] [address] PCP - General Internal Medicine 01/28/19 Blane Sheppard Jr., DPM [address] [place] [address] Referring Physician Podiatry 09/06/21 Luiz Londono MD [address] [place] [address] Referring Physician Gastroenterology 09/06/21 Sri Doll, WOOD HACKER [address] [place] [address] Nurse Practitioner Nurse Practitioner 09/13/23 Sarah Santamaria MD [address] [place] [address] Referring Physician Gynecology 09/11/24 documented as of this encounter
--- OUTSIDE RECORDS SUMMARY | 2024-10-30 14:00 | XMS_ITS | Referral Summary ---
Author Organization [facility] Center Address [address] [place] [address] Care Team Providers Care Pool Hall Inspector Name Role Phone Brigette Hernandez MD Primary Care Provider + [phone] Silver Maritnez DPM, Gabriel Unavailable + [phone] Luiz Londono MD Unavailable + Sri Doll NP Unavailable Sarah Santamaria MD Unavailable [phone] Encounters Date Type Department Care Team Description 10/23/2024 Orders Only [facility] Information Management [address] [place] [address] Scanning, Provider 10/09/2024 Telephone [facility] Primary Care [address] [place] [phone] Brigette Hernandez MD Medical Question/Miscellaneo us 10/03/2024 Telephone [facility] Medical [facility] Primary Care [address] [place] [address] [place] [phone] Brigette Hernandez MD 09/22/2024 Orders Only [facility] Health Information Management [address] [place] [address] Scanning, Provider 09/18/2024 Telephone [facility] Primary Care [address] [place] [phone] Brigette Hernandez MD Needs annual appt made, please 09/11/2024 9:00 AM CDT Office Visit [facility] Primary Care [address] [place] [address] [address] [place] [phone] Brigette Hernandez MD Annual physical exam (Primary [...] tablet (200 mg total) daily Active coenzyme J81-avleoqu E 100-5 mg-unit capsule 100 mg daily [...] A MONTH 21 tablet 08/12/19 25 Active losartan (COZAAR) 25 mg tabletIndication s:Essential (primary) hypertension Take 1 tablet (25 mg total) by mouth daily 30 tablet 3 10/10/19 25 026 Active atorvastatin (LIPITOR) 10 mg tabletIndication s:Dyslipidemia Take 1 tablet by mouth once daily 90 tablet 10/14/19 25 Active atorvastatin (LIPITOR) 10 mg tabletIndication s:Dyslipidemia Take 1 tablet by mouth once daily 90 tablet 07/14/19 25 025 Discontinued atorvastatin (LIPITOR) 10 mg tabletIndication s:Dyslipidemia Take 1 tablet by mouth once daily 90 tablet 10/09/19 25 025 Discontinued Active Problems Problem Noted Date Diagnosed Date Abnormal vaginal bleeding 09/11/2024 Assessment & Plan (09/11/2024 9:21 AM CDT): Under the care of FISHERIES SPECIALIST Dr Santamaria will be having a hysteroscopy [...] and establishing or updating healthcare power of deputy county attorney document and providing our office with [...] and establishing or updating healthcare power of deputy county attorney document and providing our office with [...] and establishing or updating healthcare power of deputy county attorney document and providing our office with a copy. Assessment & Plan (05/31/2020 4:03 PM UNIFORM PATROL POLICE OFFICER): Wear sunscreen with SPF over 50 while [...] 03/29/2020 Assessment & Plan (05/31/2020 4:13 PM UNIFORM PATROL POLICE OFFICER): Resolved, took 2 mos for the pain [...] repeated Assessment & Plan (05/31/2020 4:03 PM UNIFORM PATROL POLICE OFFICER): Stable on statin. Ff low chol diet Assessment & Plan (04/01/2019 9:45 PM UNIFORM PATROL POLICE OFFICER): Cont atorvastatin at current dose, last july [...] diet Assessment & Plan (05/31/2020 4:03 PM UNIFORM PATROL POLICE OFFICER): BP is controlled, cont current dose Ff low sodium diet Assessment & Plan (04/01/2019 9:44 PM UNIFORM PATROL POLICE OFFICER): Follow low sodium DASH Diet. Exercise regularly [...] order Assessment & Plan (05/31/2020 4:24 PM UNIFORM PATROL POLICE OFFICER): Cont current dose is euthyroid Report if has frequent palpitations, irreg heart beat or sudden changes in weight. Report if develops problem swallowing or hoarseness Assessment & Plan (04/01/2019 9:46 PM UNIFORM PATROL POLICE OFFICER): Cont current 75mcg dose pending TSH level [...] 04/2024 Assessment & Plan (05/31/2020 4:08 PM UNIFORM PATROL POLICE OFFICER): Colonoscopy- Numerous diverticuli throughout entire colon and small polyp cecum (Dr. Dailey) 09/11/2014 05/07/2020 DR Salgado, 5 polyps removed, diverticuli and int hemorrhoids on a 4 yr ff up now Assessment & Plan (04/01/2019 9:50 PM UNIFORM PATROL POLICE OFFICER): Colonoscopy due 08/2019 Resolved Problems Problem Noted [...] on file Legal Sex Female 7:35 PM UNIFORM PATROL POLICE OFFICER Gender Identity Not on file Sexual Orientation [...] A M CDT Height 157.5 cm (5' 2) 09/11/2024 9:02 AM CDT Body Mass Index 27.51 09/11/2024 9:02 AM CDT Plan of Treatment Not on file Procedures Procedure Name Priority Date/Time Associated Diagnosis Comments SCAN - RADIOLOGY/IMAGING 10/23/2024 SCAN - PATHOLOGY 09/22/2024 COLONOSCOPY Routine 05/09/2024 MAMMOGRAPHY Routine 10/04/2023 HEPATITIS C SCREENING Routine 10/05/2022 PAP SMEAR WITH HPV Routine 03/16/2020 from Last 3 Months or Most Recently Relevant to Health Maintenance Results * SCAN - RADIOLOGY/IMAGING (10/23/2024) Anatomical Region Laterality Modality Other Provider Scanning Final Result * SCAN - PATHOLOGY (09/22/2024) us Provider Scanning Final Result * COLONOSCOPY (05/09/2024) Scribed Colonoscopy Normal [facility] Provider HEALTH MAINTENANCE Final Result * MAMMOGRAPHY (10/04/2023) Mammography Normal [facility] Provider HEALTH MAINTENANCE Final Result * HEPATITIS C SCREENING (10/05/2022) SCRIBED HCV ab NEGATIVE [facility] Provider HEALTH MAINTENANCE Edited Result - Final * PAP SMEAR WITH HPV (03/16/2020) [facility] Provider HEALTH MAINTENANCE Final Result from Last 3 Months or Most Recently Relevant to Health Maintenance Insurance [facility] Care Teams Pool Hall Inspector Relationship Specialty Start Date End Date Brigette Hernandez MD [address] [place] [phone] PCP - General Internal Medicine 01/28/19 Blane Sheppard Jr., DPM [address] [place] [phone] Referring Physician Podiatry 09/06/21 Luiz Londono MD [address] GASTROENTEROLOGY [place], [place] [address] Referring Physician Gastroenterology 09/06/21 Sri Doll, PACK CHANGER [address] [place] [address] Nurse Practitioner Nurse Practitioner 09/13/23 Sarah Santamaria MD [address] [place], [place] [phone] Referring Physician Gynecology 09/11/24
--- OUTSIDE RECORDS SUMMARY | 2024-10-30 14:00 | XMS_ITS | Encounter Summary ---
Author Organization [facility] Healthcare Address [address] [place] [address] Care Team Providers Care Cylinder Sander Operator Name Role Phone Brigette Hernandez MD Primary Care Provider + [phone] Silver Martinez DPM, Gabriel Unavailable + [phone] Luiz Londono MD Unavailable + Sri Doll NP Unavailable Sarah Santamaria MD Unavailable +[phone] Encounter Details Date Type Department Care Team (Late st Contact Info) Description 10/23/2024 Orders Only [facility] Health Information Management [address] [place] [address] Scanning, Provider Social History Tobacco Use Types [...] on file Legal Sex Female 7:35 PM DROP WIRE STRINGER Gender Identity Not on file Sexual Orientation Not on file documented as of this encounter Plan of Treatment Not on file documented as of this encounter Procedures Procedure Name Priority Date/Time Associated Diagnosis Comments SCAN - RADIOLOGY/IMAGING 10/23/2024 documented in this encounter Results * SCAN - RADIOLOGY/IMAGING (10/23/2024) Anatomical Region Laterality Modality Other us Provider Scanning Final Result documented in this encounter Visit Diagnoses Not on filedocumented in this encounter Care Teams Cylinder Sander Operator Relationship Specialty Start Date End Date Brigette Hernandez MD [address] [place] [phone] PCP - General Internal Medicine 01/28/19 Blane Sheppard Jr., DPM [address] [place] [phone] Referring Physician Podiatry 09/06/21 Luiz Londono MD [address] GASTROENTEROLOGY [place], [place] [phone] Referring Physician Gastroenterology 09/06/21 Sri Doll, HELP DESK ADMINISTRATOR [address] [place], [place] [phone] Nurse Practitioner Nurse Practitioner 09/13/23 Sarah Santamaria MD [address] [place] [address] Referring Physician Gynecology 09/11/24 documented as of this encounter
--- OUTSIDE RECORDS SUMMARY | 2024-10-30 14:00 | XMS_ITS | Encounter Summary ---
Author Organization [facility] Facility Care Team Providers Care Heat Sealing Machine Operator Name Role Phone Brigette Hernandez MD Primary Care Provider + [phone] Viktoriya Coats MD Unavailable [phone] Silver Martinez DPM, Gabriel Unavailable + [phone] Luiz Londono MD Unavailable + Sri Doll NP Unavailable Sarah Santamaria MD Unavailable [phone] Encounter Details Date Type Department Care Team (Latest Contact Info) Description 07/13/2016 Orders Only [facility] ProviderAndreas MD [address] [place] [address] Social History Tobacco Use Types Packs/Day Years Used Date Smoking Tobacco: Never Assessed Comments Unknown Sex and Gender Information Value Date Recorded Sex Assigned at Not on file Legal Sex Female 7:35 PM STOCK RANCH SUPERVISOR Gender Identity Not on file Sexual Orientation Not on file documented as of this encounter Plan of Treatment Not on file documented as of this encounter Procedures Procedure Name Priority Date/Time Associated Diagnosis Comments SCAN - LABS 07/26/2016 12:00 AM STOCK RANCH SUPERVISOR documented in this encounter Results * SCAN - LABS (07/26/2016 12:00 AM STOCK RANCH SUPERVISOR) Narrative 07/26/2016 12:00 AM STOCK RANCH SUPERVISOR Ordered by an unspecified provider. us Historical Provider Final Res ult documented in this encounter Visit Diagnoses Not on filedocumented in this encounter Care Teams Heat Sealing Machine Operator Relationship Specialty Start Date End Date Brigette Hernandez MD [address] [facility] [address] [place] [address] PCP - General Internal Medicine 01/28/19 Viktoriya Coats MD [address] [facility] [address] [place] [address] Referring Physician Obstetrics and Gynecology 09/06/21 09/12/23 Blane Sheppard Jr., DPM [address] [facility] [address] [place], [place] [phone] Referring Physician Podiatry 09/06/21 Luiz Londono MD [address] GASTROENTEROLOGY [place], [place] [phone] Referring Physician Gastroenterology 09/06/21 Sri Doll, MACHINE OPERATOR FARMWORKER [address] [facility] [address] [place], [place] [phone] Nurse Practitioner Nurse Practitioner 09/13/23 Sarah Santamaria MD [address] [facility] [address] [place] [address] Referring Physician Gynecology 09/11/24 documented as of this encounter
--- OUTSIDE RECORDS SUMMARY | 2024-10-30 14:00 | XMS_ITS | Encounter Summary ---
Author Organization [facility] Facility Care Team Providers Care Information Assurance Analyst Name Role Phone Brigette Hernandez MD Primary Care Provider + [phone] Viktoriya Coats MD Unavailable +[phone] Silver Martinez DPM, Gabriel Unavailable + [phone] Luiz Londono MD Unavailable + Sri Doll NP Unavailable Sarah Santamaria MD Unavailable +[phone] Encounter Details Date Type Department Care Team (Latest Contact Info) Description 08/06/2018 Orders Only [facility] ProviderAndreas MD [address] [place] [address] Social History Tobacco Use Types Packs/Day Years Used Date Smoking Tobacco: Never Assessed Comments Unknown Sex and Gender Information Value Date Recorded Sex Assigned at Not on file Legal Sex Female 7:35 PM KINESIOLOGIST Gender Identity Not on file Sexual Orientation [...] on filedocumented in this encounter Care Teams Information Assurance Analyst Relationship Specialty Start Date End Date Brigette Hernandez MD [address] [facility] [address] [place] [address] PCP - General Internal Medicine 01/28/19 Viktoriya Coats MD [address] [facility] [address] [place] [address] Referring Physician Obstetrics and Gynecology 09/06/21 09/12/23 Blane Sheppard Jr., DPM [address] [facility] [address] [place], [place] [phone] Referring Physician Podiatry 09/06/21 Luiz Londono MD [address] GASTROENTEROLOGY [place], [place] [phone] Referring Physician Gastroenterology 09/06/21 Sri Doll, CIRCULATION REPRESENTATIVE [address] [facility] [address] [place] [address] Nurse Practitioner Nurse Practitioner 09/13/23 Sarah Santamaria MD [address] [facility] [address] [place] [address] Referring Physician Gynecology 09/11/24 documented as of this encounter
--- OUTSIDE RECORDS SUMMARY | 2024-10-30 14:00 | XMS_ITS | Encounter Summary ---
Author Organization [facility] Facility Care Team Providers Care Inventory Checker Name Role Phone Brigette Hernandez MD Primary Care Provider + [phone] Viktoriya Coats MD Unavailable +[phone] Silver Martinez DPM, Gabriel Unavailable + [phone] Luiz Londono MD Unavailable + Sri Doll NP Unavailable Sarah Santamaria MD Unavailable [phone] Encounter Details Date Type Department Care Team (Latest Contact Info) Description 09/06/2015 Orders Only [facility] ProviderAndreas MD [address] [place] [address] Social History Tobacco Use Types Packs/Day Years Used Date Smoking Tobacco: Never Assessed Comments Unknown Sex and Gender Information Value Date Recorded Sex Assigned at Not on file Legal Sex Female 7:35 PM TELEPHONE QUOTATION CLERK Gender Identity Not on file Sexual Orientation [...] on filedocumented in this encounter Care Teams Inventory Checker Relationship Specialty Start Date End Date Brigette Hernandez MD [address] [facility] [address] [place] [address] PCP - General Internal Medicine 01/28/19 Viktoriya Coats MD [address] [facility] [address] [place] [address] Referring Physician Obstetrics and Gynecology 09/06/21 09/12/23 Blane Sheppard Jr., DPM [address] [facility] [address] [place], [place] [phone] Referring Physician Podiatry 09/06/21 Luiz Londono MD [address] GASTROENTEROLOGY [place], [place] [phone] Referring Physician Gastroenterology 09/06/21 Sri Doll, TUNNEL INSPECTOR [address] [facility] [address] [place] [address] Nurse Practitioner Nurse Practitioner 09/13/23 Sarah Santamaria MD [address] [facility] [address] [place] [address] Referring Physician Gynecology 09/11/24 documented as of this encounter
--- OUTSIDE RECORDS SUMMARY | 2024-10-30 14:00 | XMS_ITS | Encounter Summary ---
Author Organization [facility] Facility Care Team Providers Care Documentation Analyst Name Role Phone Brigette Hernandez MD Primary Care Provider + [phone] Viktoriya Coats MD Unavailable +[phone] Silver Martinez DPM, Gabriel Unavailable + [phone] Luiz Londono MD Unavailable + Sri Doll NP Unavailable Sarah Santamaria MD Unavailable +[phone] Encounter Details Date Type Department Care Team (Latest Contact Info) Description 01/02/2018 Orders Only [facility] ProviderAndreas MD [address] [place] [address] Social History Tobacco Use Types Packs/Day Years Used Date Smoking Tobacco: Never Assessed Comments Unknown Sex and Gender Information Value Date Recorded Sex Assigned at Not on file Legal Sex Female 7:35 PM AUTOMATIC MOUNTER Gender Identity Not on file Sexual Orientation [...] on filedocumented in this encounter Care Teams Documentation Analyst Relationship Specialty Start Date End Date Brigette Hernandez MD [address] [facility] 250 [place] [address] PCP - General Internal Medicine 01/28/19 Viktoriya Coats MD [address] [facility] [address] [place] [address] Referring Physician Obstetrics and Gynecology 09/06/21 09/12/23 Blane Shepprad Jr., DPM [address] [facility] [address] [place], [place] [phone] Referring Physician Podiatry 09/06/21 Luiz Londono MD [address] GASTROENTEROLOGY [place], [place] [phone] Referring Physician Gastroenterology 09/06/21 Sri Doll, AUTO RENTAL CLERK [address] [facility] 200 [place] [address] Nurse Practitioner Nurse Practitioner 09/13/23 Sarah Santamaria MD [address] [facility] [address] [place] [address] Referring Physician Gynecology 09/11/24 documented as of this encounter
--- OUTSIDE RECORDS SUMMARY | 2024-10-30 14:00 | XMS_ITS | Clinical Summary ---
Author Organization [facility] Address [address] [place] [address] Care Team Providers Care Inward Toll Operator Name Role Phone Brigette Hernandez MD Primary Care Provider + [phone] Silver Martinez DPM, Gabriel Unavailable + [phone] Luiz Londono MD Unavailable + Sri Doll NP Unavailable Sarah Santamaria MD Unavailable +[phone] Allergies Active Allergy Reactions Criticality Noted Date Comments Amoxicillin Rash Medium 01/08/2019 rash Amoxicillin-Pot Clavulanate Rash Medium 01/09/20 19 rash clavulanic acid Medications fluticasone propionate (FLONASE) 50 mcg/actuation nasal spray daily Active magnesium gluconate 200 mg tablet 1 tablet (200 mg total) daily Active coenzyme [id number] E 100-5 mg-unit capsule 100 mg daily [...] 9:21 AM CDT): Under the care of CAR REPAIRER HELPER Dr Santamaria will be having a hysteroscopy [...] and establishing or updating healthcare power of set key driver document and providing our office with a [...] and establishing or updating healthcare power of set key driver document and providing our office with a [...] and establishing or updating healthcare power of set key driver document and providing our office with a copy. Assessment & Plan (05/31/2020 4:03 PM BAR HOST/HOSTESS): Wear sunscreen with SPF over 50 while [...] please contact the office. I strongly encourage [employer] sign ups. It can facilitate communication flow. Please contact the office for instructions on signing up. Consider getting Shingrix (shingles vaccine). This is a 2-shot series with each injection given 2-6 months apart. You can obtain the vaccine at most major pharmacies without a prescription History of COVID-19 03/29/2020 Assessment & Plan (05/31/2020 4:13 PM BAR HOST/HOSTESS): Resolved, took 2 mos for the pain [...] repeated Assessment & Plan (05/31/2020 4:03 PM BAR HOST/HOSTESS): Stable on statin. Ff low chol diet Assessment & Plan (04/01/2019 9:45 PM BAR HOST/HOSTESS): Cont atorvastatin at current dose, last july [...] diet Assessment & Plan (05/31/2020 4:03 PM BAR HOST/HOSTESS): BP is controlled, cont current dose Ff low sodium diet Assessment & Plan (04/01/2019 9:44 PM BAR HOST/HOSTESS): Follow low sodium DASH Diet. Exercise regularly [...] order Assessment & Plan (05/31/2020 4:24 PM BAR HOST/HOSTESS): Cont current dose is euthyroid Report if has frequent palpitations, irreg heart beat or sudden changes in weight. Report if develops problem swallowing or hoarseness Assessment & Plan (04/01/2019 9:46 PM BAR HOST/HOSTESS): Cont current 75mcg dose pending TSH level [...] 04/2024 Assessment & Plan (05/31/2020 4:08 PM BAR HOST/HOSTESS): Colonoscopy- Numerous diverticuli throughout entire colon and small polyp cecum (Dr. Dailey) 09/11/2014 05/07/2020 DR Salgado, 5 polyps removed, diverticuli and int hemorrhoids on a 4 yr ff up now Assessment & Plan (04/01/2019 9:50 PM BAR HOST/HOSTESS): Colonoscopy due 08/2019 Resolved Problems Problem Noted Date Diagnosed Date Resolved Date Boil of leg except foot 09/06/2021 10/0 12/2023 Assessment & Plan (09/06/2021 2:43 PM CDT): Still with redness and inflammation Start Doxycycline 100 mg bid x 7-10 days Call if worsens Lipoma 04/01/2019 04/01/2019 Encounters Date Type Department Care Team Description 10/23/2024 Orders Only [facility] Health Information Management [address] [place] [address] Scanning, Provider 10/09/2024 Telephone [facility] [address] [place] [phone] Brigette Hernandez MD Medical Question/Miscellaneo us 10/03/2024 Telephone [facility] [address] [place] [phone] Brigette Hernandez MD 09/22/2024 Orders Only [facility] Health Information Management [address] [place] [address] Scanning, Provider 09/18/2024 Telephone [facility] [address] [place] [phone] Brigette Hernandez MD Needs annual appt made, please 09/11/2024 9:00 AM CDT Office Visit [facility] [address] [place] [phone] Brigette Hernandez MD Annual physical exam [...] on file Legal Sex Female 7:35 PM BAR HOST/HOSTESS Gender Identity Not on file Sexual Orientation [...] Modality Other us Provider Scanning Final Result * SCAN - PATHOLOGY (09/22/2024) us Provider Scanning Final Result * COLONOSCOPY (05/09/2024) Scribed HM Colonoscopy Normal Historical Provider MD HEALTH MAINTENANCE Final Result * MAMMOGRAPHY (10/04/2023) Mammography Normal [facility] Provider HEALTH MAINTENANCE Final Result * HEPATITIS C SCREENING (10/05/2022) SCRIBED HCV ab NEGATIVE Historical Provider HEALTH MAINTENANCE Edited Result - Final * PAP SMEAR WITH HPV (03/16/2020) [facility] Provider HEALTH MAINTENANCE Final Result from Last 3 Months or Most Recently Relevant to Health Maintenance Insurance [facility] H[facility]/PPO Address: [address] [address] [facility] H[facility]/PPO Address: [address] [address] Care Teams Inward Toll Operator Relationship Specialty Start Date End Date Brigette Hernandez MD [address] [place] [phone] PCP - General Internal Medicine 01/28/19 Blane Sheppard Jr., DPNeri [address] [place] [phone] Referring Physician Podiatry 09/06/21 Luiz Londono MD [address] [facility] 204 [place] [address] Referring Physician Gastroenterology 09/06/21 Sri Dlol, PAPER WOOD CUTTER [address] [facility] 200 [place] [address] Nurse Practitioner Nurse Practitioner 09/13/23 Sarah Santamaria MD [address] [address] Referring Physician Gynecology 09/11/24
--- OUTSIDE RECORDS SUMMARY | 2024-10-30 14:00 | XMS_ITS | Encounter Summary ---
Author Organization [facility] Facility Care Team Providers Care Hoseman Name Role Phone Brigette Hernandez MD Primary Care Provider + [phone] Viktoriya Coats MD Unavailable +[phone] Silver Martinez DPM, Gabriel Unavailable + [phone] Luiz Londono MD Unavailable + Sri Doll NP Unavailable Sarah Santamaria MD Unavailable +[phone] Encounter Details Date Type Department Care Team (Latest Contact Info) Description 03/25/2015 Orders Only [facility] ProviderAndreas MD [address] [place] [address] Social History Tobacco Use Types Packs/Day Years Used Date Smoking Tobacco: Never Assessed Comments Unknown Sex and Gender Information Value Date Recorded Sex Assigned at Not on file Legal Sex Female 7:35 PM EMERGENCY TELECOMMUNICATIONS DISPATCHER Gender Identity Not on file Sexual Orientation [...] on filedocumented in this encounter Care Teams Hoseman Relationship Specialty Start Date End Date Brigette Hernandez MD [address] [facility] 250 [place] [address] PCP - General Internal Medicine 01/28/19 Viktoriya Coats MD [address] [facility] [address] [place] [address] Referring Physician Obstetrics and Gynecology 09/06/21 09/12/23 Blane Sheppard Jr., DPM [address] [facility] [address] [place], [place] [phone] Referring Physician Podiatry 09/06/21 Luiz Londono MD [address] [facility]OLOGY [place], [place] [phone] Referring Physician Gastroenterology 09/06/21 Sri Doll, MRI CT TECH [address] [facility] [facility] 200 [place] [address] Nurse Practitioner Nurse Practitioner 09/13/23 Sarah Santamaria MD [address] [facility] 200 [place] [address] Referring Physician Gynecology 09/11/24 documented as of this encounter
--- OUTSIDE RECORDS SUMMARY | 2024-10-30 14:00 | XMS_ITS | Encounter Summary ---
Author Organization [facility] Facility Care Team Providers Care Viscera Washer Name Role Phone Brigette Hernandez MD Primary Care Provider + [phone] Viktoriya Coats MD Unavailable +[phone] Silver Martinez DPM, Gabriel Unavailable + [phone] Luiz Londono MD Unavailable + Sri Doll NP Unavailable Sarah Santamaria MD Unavailable +[phone] Encounter Details Date Type Department Care Team (Latest Contact Info) Description 07/07/2016 Orders Only [facility] ProviderAndreas MD [address] [place] [address] Social History Tobacco Use Types Packs/Day Years Used Date Smoking Tobacco: Never Assessed Comments Unknown Sex and Gender Information Value Date Recorded Sex Assigned at Not on file Legal Sex Female 7:35 PM MATCH MAKER Gender Identity Not on file Sexual Orientation Not on file documented as of this encounter Plan of Treatment Not on file documented as of this encounter Procedures Procedure Name Priority Date/Time Associated Diagnosis Comments SCAN - LABS 07/26/2016 12:00 AM MATCH MAKER documented in this encounter Results * SCAN - LABS (07/26/2016 12:00 AM MATCH MAKER) Narrative 07/26/2016 12:00 AM MATCH MAKER Ordered by an unspecified provider. us Historical Provider Final Res ult documented in this encounter Visit Diagnoses Not on filedocumented in this encounter Care Teams Viscera Washer Relationship Specialty Start Date End Date Brigette Hernandez MD [address] [facility] 250 [place] [address] PCP - General Internal Medicine 01/28/19 Viktoriya Coats MD [address] [facility] 908 [place] [address] Referring Physician Obstetrics and Gynecology 09/06/21 09/12/23 Blane Sheppard Jr., DPM [address] [facility] [address] [place], [place] [phone] Referring Physician Podiatry 09/06/21 Luiz Londono MD [address] GASTROENTEROLOGY [place], [place] [phone] Referring Physician Gastroenterology 09/06/21 Sri Doll, CHAIN PULLER [address] [facility] 200 [place], [place] [phone] Nurse Practitioner Nurse Practitioner 09/13/23 Sarah Santamaria MD [address] [facility] 200 [place] [address] Referring Physician Gynecology 09/11/24 documented as of this encounter
--- OUTSIDE RECORDS SUMMARY | 2024-10-30 14:00 | XMS_ITS | Encounter Summary ---
Author Organization [facility] Facility Care Team Providers Care Railroad Car Repairman Name Role Phone Brigette Hernandez MD Primary Care Provider + [phone] Viktoriya Coats MD Unavailable +[phone] Silver Martinez DPM, Gabriel Unavailable + [phone] Luiz Londono MD Unavailable + Sri Doll NP Unavailable Sarah Santamaria MD Unavailable +[phone] Encounter Details Date Type Department Care Team (Latest Contact Info) Description 07/25/2017 Orders Only [facility] ProviderAndreas MD [address] [place] [address] Social History Tobacco Use Types Packs/Day Years Used Date Smoking Tobacco: Never Assessed Comments Unknown Sex and Gender Information Value Date Recorded Sex Assigned at Not on file Legal Sex Female 7:35 PM KETTLE LOADER Gender Identity Not on file Sexual Orientation Not on file documented as of this encounter Plan of Treatment Not on file documented as of this encounter Procedures Procedure Name Priority Date/Time Associated Diagnosis Comments SCAN - LABS 07/26/2017 12:00 AM KETTLE LOADER documented in this encounter Results * SCAN - LABS (07/26/2017 12:00 AM KETTLE LOADER) Narrative 07/26/2017 12:00 AM KETTLE LOADER Ordered by an unspecified provider. us Historical Provider Final Res ult documented in this encounter Visit Diagnoses Not on filedocumented in this encounter Care Teams Railroad Car Repairman Relationship Specialty Start Date End Date Brigette Hernandez MD [address] [facility] 250 [place] [address] PCP - General Internal Medicine 01/28/19 Viktoriya Coats MD [address] [facility] 9[address] [place] [address] Referring Physician Obstetrics and Gynecology 09/06/21 09/12/23 Blane Sheppard Jr., DPM [address] [facility] [address] [place], [place] [phone] Referring Physician Podiatry 09/06/21 Luiz Londono MD [address] [place]STR[place]OLOGY [place], [place] [address] Referring Physician Gastroenterology 09/06/21 Sri Doll, READING EFFICIENCY COURSE DIRECTOR [address] [facility] 200 [place], [place] [phone] Nurse Practitioner Nurse Practitioner 09/13/23 Sarah Santamaria MD [address] [facility] [facility] 200 [place] [address] Referring Physician Gynecology 09/11/24 documented as of this encounter
--- OUTSIDE RECORDS SUMMARY | 2024-10-30 14:00 | XMS_ITS | Encounter Summary ---
Author Organization [facility] Facility Care Team Providers Care Ice Cream Freezer Assistant Name Role Phone Brigette Hernandez MD Primary Care Provider + [phone] Viktoriya Coats MD Unavailable +[phone] Silver Martinez DPM, Gabriel Unavailable + [phone] Luiz Londono MD Unavailable + Sri Doll NP Unavailable Sarah Santamaria MD Unavailable [phone] Encounter Details Date Type Department Care Team (Latest Contact Info) Description 01/04/2016 Orders Only [facility] ProviderAndreas MD [address] [place] [address] Social History Tobacco Use Types Packs/Day Years Used Date Smoking Tobacco: Never Assessed Comments Unknown Sex and Gender Information Value Date Recorded Sex Assigned at Not on file Legal Sex Female 7:35 PM MACHINERY RIGGER Gender Identity Not on file Sexual Orientation [...] on filedocumented in this encounter Care Teams Ice Cream Freezer Assistant Relationship Specialty Start Date End Date Brigette Hernandez MD 14[address] [facility] 250 [place] [address] PCP - General Internal Medicine 01/28/19 Viktoriya Coats MD [address] [facility] 908 [place] [address] Referring Physician Obstetrics and Gynecology 09/06/21 09/12/23 Blane Sheppard Jr., DPM [address] [facility] [address]08 [place], [place] [phone] Referring Physician Podiatry 09/06/21 Luiz Londono MD [address] GASTROENTEROLOGY [place], [place] [phone] Referring Physician Gastroenterology 09/06/21 Sri Doll, REGIONAL TRAINING MANAGER [address] [facility] 200 [place] [address] Nurse Practitioner Nurse Practitioner 09/13/23 Sarah Santamaria MD [address] [facility] 200 [place] [address] Referring Physician Gynecology 09/11/24 documented as of this encounter
--- OUTSIDE RECORDS SUMMARY | 2024-10-30 14:00 | XMS_ITS | Encounter Summary ---
Author Organization [facility] Facility Care Team Providers Care Master Sonar Technician Name Role Phone Brigette Hernandez MD Primary Care Provider + [phone] Viktoriya Coats MD Unavailable +[phone] Silver Martinez DPM, Gabriel Unavailable + [phone] Luiz Londono MD Unavailable + Sri Doll NP Unavailable Sarah Santamaria MD Unavailable [phone] Encounter Details Date Type Department Care Team (Latest Contact Info) Description 03/16/2016 Orders Only [facility] ProviderAndreas MD [address] [place] [address] Social History Tobacco Use Types Packs/Day Years Used Date Smoking Tobacco: Never Assessed Comments Unknown Sex and Gender Information Value Date Recorded Sex Assigned at Not on file Legal Sex Female 7:35 PM BODY AND FRAME MAN Gender Identity Not on file Sexual Orientation Not on file documented as of this encounter Plan of Treatment Not on file documented as of this encounter Procedures Procedure Name Priority Date/Time Associated Diagnosis Comments SCAN - LABS 04/17/2016 12:00 AM BODY AND FRAME MAN documented in this encounter Results * SCAN - LABS (04/17/2016 12:00 AM BODY AND FRAME MAN) Narrative 04/17/2016 12:00 AM BODY AND FRAME MAN Ordered by an unspecified provider. us Historical Provider Final Res ult documented in this encounter Visit Diagnoses Not on filedocumented in this encounter Care Teams Master Sonar Technician Relationship Specialty Start Date End Date Brigette Hernandez MD 1418 [facility] 250 [place] [address] PCP - General Internal Medicine 01/28/19 Viktoriya Coats MD [address] [facility] [address] [place] [address] Referring Physician Obstetrics and Gynecology 09/06/21 09/12/23 Blane Sheppard Jr., DPM [address] [facility] [address] [place], [place] [phone] Referring Physician Podiatry 09/06/21 Luiz Londono MD [address] [place]OLOGY [place], [place] [address] Referring Physician Gastroenterology 09/06/21 Sri Doll, FRAME TRIMMER [address] [facility] [facility] 200 [place], [place] [phone] Nurse Practitioner Nurse Practitioner 09/13/23 Sarah Santamaria MD [address] [facility] [facility] 200 [place] [address] Referring Physician Gynecology 09/11/24 documented as of this encounter
== END 2024-10-30 13:23 | disposition home or self-care (01) ==
LOC: ANHIMG 13:23
PROVIDERS: PCP Internal Medicine; Visit Provider Obstetrics & Gynecology Gynecology
DX: R92.8 Other abnormal and inconclusive findings on diagnostic imaging of breast (principal)
CPT/HCPCS: 76642; 77061; 77065; G0279

== ENCOUNTER 2025-01-23 10:51 | Outpatient (CLI) | payer OTHER, SELFPAY ==
--- NOTE | ~2025-01-23 | CT_ITS ---
EXAMINATION: CT abdomen pelvis wo con DATE: 01/23/2025 11:04 INDICATION: Abdominal pain and swelling TECHNIQUE: Computed tomography (CT) of the abdomen and pelvis was performed without intravenous contrast. The dose-length product was 288.34 mGy-cm. Automated exposure control and iterative reconstruction technique were employed. COMPARISON: None. FINDINGS: Lung bases unremarkable. Heart size normal. No significant pleural or pericardial effusion. The liver, spleen, pancreas, adrenal glands and kidneys are unremarkable. Gallbladder is present. Nonobstructive bowel gas pattern. No abnormal pelvic masses or fluid collections. There is atherosclerosis without evidence for aneurysm. No lymphadenopathy. No renal stones or hydronephrosis. Normal appendix. No free air or free fluid. There is disc narrowing at L5-S1. There is facet hypertrophy at L5-S1. Grade 1 spondylolisthesis. No acute osseous abnormality. No suspicious lytic or blastic lesions. IMPRESSION: 1. No acute abdominal abnormality. Reviewed, dictated and finalized at location O.
--- OUTSIDE RECORDS SUMMARY | 2025-01-23 10:55 | XMS_ITS | Encounter Summary ---
Author Organization [facility] Address [address] [place] [address] Care Team Providers Care Materials Scientist Name Role Phone Unavailable Primary Care Provider Unavailabl e Encounter Details Date Type Department Care Team (Late st Contact Info) Description 11/02/2018 Abstract [facility] CONVERSION [address] [place], [place] [id number] , Generic Conversion, Social History Tobacco Use [...]
--- OUTSIDE RECORDS SUMMARY | 2025-01-23 10:55 | XMS_ITS | Encounter Summary ---
Author Organization [facility] Facility Care Team Providers Care Head Of Visual Merchandising Name Role Phone Brigette Hernandez MD Primary Care Provider + [phone] Viktoriya Coats MD Unavailable +[phone] Silver Martinez DPM, Gabriel Unavailable + [phone] Luiz Londono MD Unavailable + Sri Doll NP Unavailable Sarah Santamaria MD Unavailable +[phone] Encounter Details Date Type Department Care Team (Latest Contact Info) Description 07/25/2017 Orders Only [facility]INCON[facility] ProviderAndreas MD [address] [place] [address] Social History Tobacco Use Types Packs/Day Years Used Date Smoking Tobacco: Never Assessed Comments Unknown Sex and Gender Information Value Date Recorded Sex Assigned at Not on file Legal Sex Female 7:35 PM MEDICAL CASE MANAGER Gender Identity Not on file Sexual Orientation Not on file documented as of this encounter Plan of Treatment Not on file documented as of this encounter Procedures Procedure Name Priority Date/Time Associated Diagnosis Comments SCAN - LABS 07/26/2017 12:00 AM MEDICAL CASE MANAGER documented in this encounter Results * SCAN - LABS (07/26/2017 12:00 AM MEDICAL CASE MANAGER) Narrative 07/26/2017 12:00 AM MEDICAL CASE MANAGER Ordered by an unspecified provider. us Historical Provider Final Res ult documented in this encounter Visit Diagnoses Not on filedocumented in this encounter Care Teams Head Of Visual Merchandising Relationship Specialty Start Date End Date Brigette Hernandez MD [address] [facility] 250 [place] [address] PCP - General Internal Medicine 01/28/19 Viktoriya Coats MD [address] [facility] 9[address] [place] [address] Referring Physician Obstetrics and Gynecology 09/06/21 09/12/23 Blane Sheppard Jr., DPM [address] [facility] [address] [place], [place] [phone] Referring Physician Podiatry 09/06/21 Luiz Londono MD [address] GASTROENTEROLOGY [place], [place] [address] Referring Physician Gastroenterology 09/06/21 Sri Doll, COPY WORKER [address] [facility] [facility] 200 [place], [place] [phone] Nurse Practitioner Nurse Practitioner 09/13/23 Sarah Santamaria MD [address] [facility] 200 [place] [address] Referring Physician Gynecology 09/11/24 documented as of this encounter
--- OUTSIDE RECORDS SUMMARY | 2025-01-23 10:55 | XMS_ITS | Encounter Summary ---
Author Organization [facility] Healthcare Address [address] [place] [address] Care Team Providers Care Finish Inspector Name Role Phone Brigette Hernandez MD Primary Care Provider + [phone] Silver Martinez DPM, Gabriel Unavailable + [phone] Luiz Londono MD Unavailable + Sri Doll NP Unavailable Sarah Santamaria MD Unavailable +[phone] Encounter Details Date Type Department Care Team (Late st Contact Info) Description 09/22/2024 Orders Only [facility] Information Management [address] [place] [address] Scanning, Provider Social History Tobacco Use Types [...] file Legal Sex Female 7:35 PM SURVEY ENGINEER Gender Identity Not on file Sexual [...] on filedocumented in this encounter Care Teams Finish Inspector Relationship Specialty Start Date End Date Brigette Hernandez MD [address] [place] [address] PCP - General Internal Medicine 01/28/19 Blane Sheppard Jr., DPM [address] [place] [address] Referring Physician Podiatry 09/06/21 Luiz Londono MD [address] [place] [address] Referring Physician Gastroenterology 09/06/21 Sri Doll, LOCKSTITCH TUNNEL ELASTIC OPERATOR [address] [facility] [address] [place] [address] Nurse Practitioner Nurse Practitioner 09/13/23 Sarah Santamaria MD [address] [facility] [address] [place] [address] Referring Physician Gynecology 09/11/24 documented as of this encounter
--- OUTSIDE RECORDS SUMMARY | 2025-01-23 10:55 | XMS_ITS | Encounter Summary ---
Author Organization [facility] Facility Care Team Providers Care Senior Media Director Name Role Phone Brigette Hernandez MD Primary Care Provider + [phone] Viktoriya Coats MD Unavailable +[phone] Silver Martinez DPM, Gabriel Unavailable + [phone] Luiz Londono MD Unavailable + Sri Doll NP Unavailable Sarah Santamaria MD Unavailable +[phone] Encounter Details Date Type Department Care Team (Latest Contact Info) Description 03/25/2015 Orders Only [facility]IN[facility] ProviderAndreas MD [address] [place] [address] Social History Tobacco Use Types Packs/Day Years Used Date Smoking Tobacco: Never Assessed Comments Unknown Sex and Gender Information Value Date Recorded Sex Assigned at Not on file Legal Sex Female 7:35 PM STRAW BOSS Gender Identity Not on file Sexual Orientation [...] on filedocumented in this encounter Care Teams Senior Media Director Relationship Specialty Start Date End Date Brigette Hernandez MD [address] [facility] 250 [place] [address] PCP - General Internal Medicine 01/28/19 Viktoriya Coats MD [address] [facility] [address] [place] [address] Referring Physician Obstetrics and Gynecology 09/06/21 09/12/23 Blane Sheppard Jr., DPM [address] [facility] [address] [place], [place] [phone] Referring Physician Podiatry 09/06/21 Luiz Londono MD [address] GASTROENTEROLOGY [place], [place] [phone] Referring Physician Gastroenterology 09/06/21 Sri Doll, SLAB INSTALLER [address] [facility] 200 [place] [address] Nurse Practitioner Nurse Practitioner 09/13/23 Sarah Santamaria MD [address] [facility] 200 [place] [address] Referring Physician Gynecology 09/11/24 documented as of this encounter
--- OUTSIDE RECORDS SUMMARY | 2025-01-23 10:55 | XMS_ITS | Encounter Summary ---
Author Organization [facility] Facility Care Team Providers Care Mule Rider Name Role Phone Brigette Hernandez MD Primary Care Provider + [phone] Viktoriya Coats MD Unavailable +[phone] Silver Martinez DPM, Gabriel Unavailable + [phone] Luiz Londono MD Unavailable + Sri Doll NP Unavailable Sarah Santamaria MD Unavailable [phone] Encounter Details Date Type Department Care Team (Latest Contact Info) Description 03/16/2016 Orders Only [facility] CLINCONV ProviderAndreas MD [address] [place] [address] Social History Tobacco Use Types Packs/Day Years Used Date Smoking Tobacco: Never Assessed Comments Unknown Sex and Gender Information Value Date Recorded Sex Assigned at Not on file Legal Sex Female 7:35 PM CANVAS SHOP LABORER Gender Identity Not on file Sexual Orientation Not on file documented as of this encounter Plan of Treatment Not on file documented as of this encounter Procedures Procedure Name Priority Date/Time Associated Diagnosis Comments SCAN - LABS 04/17/2016 12:00 AM CANVAS SHOP LABORER documented in this encounter Results * SCAN - LABS (04/17/2016 12:00 AM CANVAS SHOP LABORER) Narrative 04/17/2016 12:00 AM CANVAS SHOP LABORER Ordered by an unspecified provider. us Historical Provider Final Res ult documented in this encounter Visit Diagnoses Not on filedocumented in this encounter Care Teams Mule Rider Relationship Specialty Start Date End Date Brigette Hernandez MD [address] [facility] [address] [place] [address] PCP - General Internal Medicine 01/28/19 Viktoriya Coats MD [address] [facility] [address] [place] [address] Referring Physician Obstetrics and Gynecology 09/06/21 09/12/23 Blane Sheppard Jr., DPM [address] [facility] [address] [place], [place] [phone] Referring Physician Podiatry 09/06/21 Luiz Londono MD [address] GASTROENTEROLOGY [place], [place] [address] Referring Physician Gastroenterology 09/06/21 Sri Doll, DEATH SURVEYS CODER [address] [facility] 200 [place], [place] [id number] Nurse Practitioner Nurse Practitioner 09/13/23 Sarah Santamaria MD [address] [facility] 200 [place] [address] Referring Physician Gynecology 09/11/24 documented as of this encounter
--- OUTSIDE RECORDS SUMMARY | 2025-01-23 10:55 | XMS_ITS | Clinical Summary ---
Author Organization [facility] Address [address] [place] [address] Care Team Providers Care Law Examiner Name Role Phone Unavailable Primary Care Provider [...]
--- OUTSIDE RECORDS SUMMARY | 2025-01-23 10:55 | XMS_ITS | Clinical Summary ---
Author Organization [facility] Address [address] [place] [address] Care Team Providers Care Lithographic Proofer Apprentice Name Role Phone Brigette Hernandez MD Primary Care Provider + [phone] iSlver Martinez DPM, Gabriel Unavailable + [phone] Luiz Londono MD Unavailable + Sri Doll NP Unavailable Sarah Santamaria MD Unavailable [phone] Allergies Active Allergy Reactions Criticality Noted Date Comments Amoxicillin Rash Medium 01/08/2019 rash Amoxicillin-Pot Clavulanate Rash Medium 01/09/20 19 rash clavulanic acid Medications fluticasone propionate (FLONASE) 50 mcg/actuation nasal spray daily Active magnesium gluconate 200 mg tablet 1 tablet (200 mg total) daily Active coenzyme [id number] 100-5 mg-unit capsule 100 mg daily Active ergocalciferol, vitamin D2, (VITAMIN D2 ORAL) Take by mouth Active estradiol-noreth indrone (ACTIVELLA) 0.5-0.1 mg per tablet Take 1 tablet by mouth daily 09/03/19 24 Active SEMAGLUTIDE, WEIGHT LOSS, SUBQ Inject 5 mg under the skin 30 units injected sub q every 7 days Active losartan (COZAAR) 25 mg tabletIndication s:Essential (primary) hypertension Take 1 tablet (25 mg total) by mouth daily 30 tablet 3 10/10/19 25 026 Active terbinafine (LamiSIL) 250 mg tablet TAKE 1 TABLET BY MOUTH ONCE DAILY FOR 7 DAYS ONCE A MONTH 21 tablet 12/04/19 25 Active levothyroxine (SYNTHROID) 50 mcg tablet Take 1 tablet by mouth once daily 90 tablet 1 12/31/19 25 Active atorvastatin (LIPITOR) 10 mg tabletIndication s:Dyslipidemia Take 1 tablet (10 mg total) by mouth daily 90 tablet 01/03/20 25 Active atorvastatin (LIPITOR) 10 mg tabletIndication s:Dyslipidemia Take 1 tablet by mouth once daily 90 tablet 10/14/19 25 025 Discontinued(Re order) levothyroxine (SYNTHROID) 50 mcg tablet Take 1 tablet by mouth once daily 30 tablet 12/04/19 25 025 Discontinued Active Problems Problem Noted Date Diagnosed Date Abnormal vaginal bleeding 09/11/2024 Assessment & Plan (09/11/2024 9:21 AM CDT): Under the care of BELL CAPTAIN Dr Santamaria will be having a hysteroscopy [...] and establishing or updating healthcare power of regulatory attorney document and providing our office with [...] and establishing or updating healthcare power of regulatory attorney document and providing our office with [...] and establishing or updating healthcare power of regulatory attorney document and providing our office with a copy. Assessment & Plan (05/31/2020 4:03 PM ABALONE SHELLER): Wear sunscreen with SPF over 50 while [...] please contact the office. I strongly encourage miCab[employer] sign ups. It can facilitate communication flow. Please contact the office for instructions on signing up. Consider getting Shingrix (shingles vaccine). This is a 2-shot series with each injection given 2-6 months apart. You can obtain the vaccine at most major pharmacies without a prescription History of COVID-19 03/29/2020 Assessment & Plan (05/31/2020 4:13 PM ABALONE SHELLER): Resolved, took 2 mos for the pain [...] repeated Assessment & Plan (05/31/2020 4:03 PM ABALONE SHELLER): Stable on statin. Ff low chol diet Assessment & Plan (04/01/2019 9:45 PM ABALONE SHELLER): Cont atorvastatin at current dose, last july [...] diet Assessment & Plan (05/31/2020 4:03 PM ABALONE SHELLER): BP is controlled, cont current dose Ff low sodium diet Assessment & Plan (04/01/2019 9:44 PM ABALONE SHELLER): Follow low sodium DASH Diet. Exercise regularly [...] order Assessment & Plan (05/31/2020 4:24 PM ABALONE SHELLER): Cont current dose is euthyroid Report if has frequent palpitations, irreg heart beat or sudden changes in weight. Report if develops problem swallowing or hoarseness Assessment & Plan (04/01/2019 9:46 PM ABALONE SHELLER): Cont current 75mcg dose pending TSH level [...] 04/2024 Assessment & Plan (05/31/2020 4:08 PM ABALONE SHELLER): Colonoscopy- Numerous diverticuli throughout entire colon and small polyp cecum (Dr. Dailey) 09/11/2014 05/07/2020 DR Salgado, 5 polyps removed, diverticuli and int hemorrhoids on a 4 yr ff up now Assessment & Plan (04/01/2019 9:50 PM ABALONE SHELLER): Colonoscopy due 08/2019 Resolved Problems Problem Noted Date Diagnosed Date Resolved Date Boil of leg except foot 09/06/2021 10/0 12/2023 Assessment & Plan (09/06/2021 2:43 PM CDT): Still with redness and inflammation Start Doxycycline 100 mg bid x 7-10 days Call if worsens Lipoma 04/01/2019 04/01/2019 Encounters Date Type Department Care Team Description 12/30/2024 Letter (Out) [facility] Medical [facility] Primary Care [address] [place] [phone] 12/29/2024 Patient Message [facility] Primary Care [address] [place] [phone] Brigette Hernandez MD Referrals ir umbilicalcal hernia repair 10/23/2024 Orders Only [facility] Information Management [address] [place] [address] Scanning, Provider from Last 3 Months Immunizations Immunization Administration [...] on file Legal Sex Female 7:35 PM ABALONE SHELLER Gender Identity Not on file Sexual Orientation [...] 2024 02/22/2023, 02/10/2022, 08/14/2020, Additional history exists Influenza Vaccine (#1) 2025 , 03/13/2023, 01/26/2022, Additional history exists Depression Screening 09/11/2025 09/11/2024, 09/11/2024, 03/04/2024, Additional history exists Regular Well Visit/Exam 18-64 09/11/2025 09/11/2024, 09/13/2023, 09/11/2022, Additional history exists Breast Cancer Screening-Mammogram 11/27/2025 11/27/2024, 10/04/2023, 07/29/2022, Additional history exists Colon Cancer Screening-Colonoscopy 11/27/2029 11/27/2024, 05/09/2024, 05/07/2020, Additional history exists DTaP/Tdap/Td Vaccine (2 - Td or Tdap) 09/07/2031 09/06/2021, 05/28/2011 Pneumococcal vaccine <65 Aged Out 07/25/2017, 06/29 No longer eligible based on patient's age to complete this topic Zoster Vaccine Completed 06/28/2022, 02/26, 02/25/2022 Hepatitis C Screening Completed 10/05/2022 Colon Cancer Screening-CT Colonography Discontinued 11/27/2024, 05/09/2024, 05/07/2020, Additional history exists Colon Cancer Screening-DNA Stool Discontinued 11/27/2024, 05/09/2024, 05/07/2020, Additional history exists Colon Cancer Screening-FIT Discontinued 11/27, 05/09/2024, 05/07/2020, Additional history exists Colon Cancer Screening-Sigmoidoscopy Discontinued 11/27/2024, 05/09/2024, 05/07/2020, Additional history exists Procedures Procedure Name Priority Date/Time Associated Diagnosis Comments COLONOSCOPY Routine 11/27/2024 3:06 PM CDT SCREENING MAMMOGRAM Schedule Routine, Read Routine (OP Routine) 11/27/2024 1:45 PM CDT SCAN - RADIOLOGY/IMAGING 10/23/2024 HEPATITIS C SCREENING Routine 10/05/2022 PAP SMEAR WITH HPV Routine 03/16/2020 from Last 3 Months or Most Recently Relevant to Health Maintenance Results * (ABNORMAL) COLONOSCOPY (11/27/2024 3:06 PM CDT) Scribed Colonoscopy Abnormal Historical Provider HEALTH MAINTENANCE Final Result * (ABNORMAL) Screening Mammogram (11/27/2024 1:45 PM CDT) Anatomical Region Laterality Modality Breast N/A Mammography Historical Provider IMG MAMMO PROCEDURES Lisa l Result * SCAN - RADIOLOGY/IMAGING (10/23/2024) Anatomical Region Laterality Modality Other Provider Scanning Final Result * HEPATITIS C SCREENING (10/05/2022) SCRIBED HCV ab NEGATIVE [facility] Provider HEALTH MAINTENANCE Edited Result - Final * PAP SMEAR WITH HPV (03/16/2020) [facility] Provider HEALTH MAINTENANCE Final Result from Last 3 Months or Most Recently Relevant to Health Maintenance Insurance Care Teams Lithographic Proofer Apprentice Relationship Specialty Start Date End Date Brigette Hernandez MD [address] [place] [id number] PCP - General Internal Medicine 01/28/19 Blane Sheppard Jr., DPM [address] [place] [id number] Referring Physician Podiatry 09/06/21 Luiz Londono MD [address] [place] [address] Referring Physician Gastroenterology 09/06/21 Sri Doll, EXPRESSIVE THERAPIST [address] [facility] [place] [facility] [address] [place] [address] Nurse Practitioner Nurse Practitioner 09/13/23 Sarah Santamaria MD [address] [email or web address] [address] [place] [address] Referring Physician Gynecology 09/11/24
--- OUTSIDE RECORDS SUMMARY | 2025-01-23 10:55 | XMS_ITS | Encounter Summary ---
Author Organization [facility] Facility Care Team Providers Care Technical Services Assistant Name Role Phone Brigette Hernandez MD Primary Care Provider + [phone] Viktoriya Coats MD Unavailable [phone] Silver Martinez DPM, Gabriel Unavailable + [phone] Luiz Londono MD Unavailable + Sri Doll NP Unavailable Sarah Santamaria MD Unavailable +[phone] Encounter Details Date Type Department Care Team (Latest Contact Info) Description 07/26/2016 Orders Only [facility] CLINCONV ProviderAndreas MD [address] [place] [address] Social History Tobacco Use Types Packs/Day Years Used Date Smoking Tobacco: Never Assessed Comments Unknown Sex and Gender Information Value Date Recorded Sex Assigned at Not on file Legal Sex Female 7:35 PM PERSONAL SHOPPER Gender Identity Not on file Sexual Orientation Not on file documented as of this encounter Plan of Treatment Not on file documented as of this encounter Procedures Procedure Name Priority Date/Time Associated Diagnosis Comments COLONOSCOPY - SCAN 07/26/2016 12 :00 AM PERSONAL SHOPPER documented in this encounter Results * COLONOSCOPY - SCAN (07/26/2016 12:00 AM PERSONAL SHOPPER) Narrative 07/26/2016 12:00 AM PERSONAL SHOPPER Ordered by an unspecified provider. us Historical Provider Final Res ult documented in this encounter Visit Diagnoses Not on filedocumented in this encounter Care Teams Technical Services Assistant Relationship Specialty Start Date End Date Brigette Hernandez MD [address] [facility] [address] [place] [address] PCP - General Internal Medicine 01/28/19 Viktoriya Coats MD [address] [facility] [address] [place] [address] Referring Physician Obstetrics and Gynecology 09/06/21 09/12/23 Blane Sheppard Jr., DPM [address] [facility] [address] [place], [place] [phone] Referring Physician Podiatry 09/06/21 Luiz Londono MD [address] GASTROENTEROLOGY [place], [place] [phone] Referring Physician Gastroenterology 09/06/21 Sri Doll, SENIOR ACCOUNTING CLERK [address] [facility] [address] [place], [place] [phone] Nurse Practitioner Nurse Practitioner 09/13/23 Sarah Santamaria MD [address] [facility] [address] [place] [address] Referring Physician Gynecology 09/11/24 documented as of this encounter
--- OUTSIDE RECORDS SUMMARY | 2025-01-23 10:55 | XMS_ITS | Encounter Summary ---
Author Organization [facility] Facility Care Team Providers Care Client Relationship Executive Name Role Phone Brigette Hernandez MD Primary Care Provider + [phone] Viktoriya Coats MD Unavailable [phone] Silver Martinez DPM, Gabriel Unavailable + [phone] Luiz Londono MD Unavailable + Sri Doll NP Unavailable Sarah Santamaria MD Unavailable [phone] Encounter Details Date Type Department Care Team (Latest Contact Info) Description 01/02/2018 Orders Only [facility] CLINCONV ProviderAndreas MD [address] [place] [address] Social History Tobacco Use Types Packs/Day Years Used Date Smoking Tobacco: Never Assessed Comments Unknown Sex and Gender Information Value Date Recorded Sex Assigned at Not on file Legal Sex Female 7:35 PM NEUROSURGICAL PHYSICIAN ASSISTANT Gender Identity Not on file Sexual [...] on filedocumented in this encounter Care Teams Client Relationship Executive Relationship Specialty Start Date End Date Brigette Hernandez MD [address] [facility] 250 [place] [address] PCP - General Internal Medicine 01/28/19 Viktoriya Coats MD [address] [facility] [address] [place] [address] Referring Physician Obstetrics and Gynecology 09/06/21 09/12/23 Blane Sheppard Jr., DPM [address] [facility] [address] [place], [place] [phone] Referring Physician Podiatry 09/06/21 Luiz Londono MD [address] GASTROENTEROLOGY [place], [place] [address] Referring Physician Gastroenterology 09/06/21 Sri Doll, CARD DEALER [address] [facility] 200 [place] [address] Nurse Practitioner Nurse Practitioner 09/13/23 Sarah Santamaria MD [address] [facility] [address] [place] [address] Referring Physician Gynecology 09/11/24 documented as of this encounter
--- OUTSIDE RECORDS SUMMARY | 2025-01-23 10:55 | XMS_ITS | Encounter Summary ---
Author Organization [facility] Facility Care Team Providers Care Mechanical And Auto Body Car Checker Name Role Phone Brigette Hernandez MD Primary Care Provider + [phone] Viktoriya Coats MD Unavailable +[phone] Silver Martinez DPM, Gabriel Unavailable + [phone] Luiz Londono MD Unavailable + Sri Doll NP Unavailable Sarah Santamaria MD Unavailable +[phone] Encounter Details Date Type Department Care Team (Latest Contact Info) Description 01/04/2016 Orders Only [facility] CLINCONV ProviderAndreas MD [address] [place] [address] Social History Tobacco Use Types Packs/Day Years Used Date Smoking Tobacco: Never Assessed Comments Unknown Sex and Gender Information Value Date Recorded Sex Assigned at Not on file Legal Sex Female 7:35 PM ARTS AND CRAFTS TEACHER Gender Identity Not on file Sexual [...] on filedocumented in this encounter Care Teams Mechanical And Auto Body Car Checker Relationship Specialty Start Date End Date Brigette Hernandez MD [address] [facility] [address] [place] [address] PCP - General Internal Medicine 01/28/19 Viktoriya Coats MD [address] [facility] 9[address] [place] [address] Referring Physician Obstetrics and Gynecology 09/06/21 09/12/23 Blane Sheppard Jr., DPM [address] [facility] [address] [place], [place] [phone] Referring Physician Podiatry 09/06/21 Luiz Londono MD [address] GASTROENTEROLOGY [place], [place] [phone] Referring Physician Gastroenterology 09/06/21 Sri Doll, COMPUTER SYSTEM VALIDATION SPECIALIST [address] [facility] 200 [place] [address] Nurse Practitioner Nurse Practitioner 09/13/23 Sarah Santamaria MD [address] [facility] 200 [place] [address] Referring Physician Gynecology 09/11/24 documented as of this encounter
--- OUTSIDE RECORDS SUMMARY | 2025-01-23 10:55 | XMS_ITS | Encounter Summary ---
Author Organization [facility] Facility Care Team Providers Care Motor Vehicle Emissions Inspector Name Role Phone Brigette Hernandez MD Primary Care Provider + [phone] Viktoriya Coats MD Unavailable [phone] Silver Martinez DPM, Gabriel Unavailable + [phone] Luiz Londono MD Unavailable + Sri Doll NP Unavailable Sarah Santamaria MD Unavailable [phone] Encounter Details Date Type Department Care Team (Latest Contact Info) Description 08/06/2018 Orders Only [facility] CLINCONV ProviderAndreas MD [address] [place] [address] Social History Tobacco Use Types Packs/Day Years Used Date Smoking Tobacco: Never Assessed Comments Unknown Sex and Gender Information Value Date Recorded Sex Assigned at Not on file Legal Sex Female 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 PM CHIPPER OPERATOR Gender Identity Not on file Sexual [...] on filedocumented in this encounter Care Teams Motor Vehicle Emissions Inspector Relationship Specialty Start Date End Date Brigette Hernandez MD 14[address] [facility] [address] [place] [address] PCP - General Internal Medicine 01/28/19 Viktoriya Coats MD [address] [facility] [address] [place] [address] Referring Physician Obstetrics and Gynecology 09/06/21 09/12/23 Blane Sheppard Jr., DPM [address] [facility] [address] [place], [place] [phone] Referring Physician Podiatry 09/06/21 Luiz Londono MD [address] GASTROENTEROLOGY [place], [place] [phone] Referring Physician Gastroenterology 09/06/21 Sri Doll, OFFICE HELPER [address] [facility] 200 [place] [address] Nurse Practitioner Nurse Practitioner 09/13/23 Sarah Santamaria MD [address] [facility] 200 [place] [address] Referring Physician Gynecology 09/11/24 documented as of this encounter
--- OUTSIDE RECORDS SUMMARY | 2025-01-23 10:55 | XMS_ITS | Encounter Summary ---
Author Organization [facility] Facility Care Team Providers Care Graphic Illustrator Name Role Phone Brigette Hernandez MD Primary Care Provider + [phone] Viktoriya Coats MD Unavailable [phone] Silver Martinez DPM, Gabriel Unavailable + [phone] Luiz Londono MD Unavailable + Sri Doll NP Unavailable Sarah Santamaria MD Unavailable [phone] Encounter Details Date Type Department Care Team (Latest Contact Info) Description 01/15/2017 Orders Only [facility] CLINCONV ProviderAndreas MD [address] [place] [address] Social History Tobacco Use Types Packs/Day Years Used Date Smoking Tobacco: Never Assessed Comments Unknown Sex and Gender Information Value Date Recorded Sex Assigned at Not on file Legal Sex Female 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 ROOM 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 Gender Identity Not on file Sexual Orientation [...] on filedocumented in this encounter Care Teams Graphic Illustrator Relationship Specialty Start Date End Date Brigette Hernandez MD 1418 [facility] [address] [place] [address] PCP - General Internal Medicine 01/28/19 Viktoriya Coats MD [address] [facility] [address] [place] [address] Referring Physician Obstetrics and Gynecology 09/06/21 09/12/23 Blane Sheppard Jr., DPM [address] [facility] [address] [place], [place] [phone] Referring Physician Podiatry 09/06/21 Luiz Londono MD [address] GASTROENTEROLOGY [place], [place] [phone] Referring Physician Gastroenterology 09/06/21 Sri Doll, QUALITY ASSISTANT [address] [facility] 200 [place] [address] Nurse Practitioner Nurse Practitioner 09/13/23 Sarah Santamaria MD [address] [facility] [facility] 200 [place] [address] Referring Physician Gynecology 09/11/24 documented as of this encounter
--- OUTSIDE RECORDS SUMMARY | 2025-01-23 10:55 | XMS_ITS | Encounter Summary ---
Author Organization [facility] Facility Care Team Providers Care Phlebotomy Director Name Role Phone Brigette Hernandez MD Primary Care Provider + [phone] Viktoriya Coats MD Unavailable +[phone] Silver Martinez DPM, Gabriel Unavailable + [phone] Luiz Londono MD Unavailable + Sri Doll NP Unavailable Sarah Santamaria MD Unavailable +[phone] Encounter Details Date Type Department Care Team (Latest Contact Info) Description 07/13/2016 Orders Only [facility]INCON[facility] ProviderAndreas MD [address] [place] [address] Social History Tobacco Use Types Packs/Day Years Used Date Smoking Tobacco: Never Assessed Comments Unknown Sex and Gender Information Value Date Recorded Sex Assigned at Not on file Legal Sex Female 7:35 PM SYSTEMS TEST ANALYST Gender Identity Not on file Sexual Orientation Not on file documented as of this encounter Plan of Treatment Not on file documented as of this encounter Procedures Procedure Name Priority Date/Time Associated Diagnosis Comments SCAN - LABS 07/26/2016 12:00 AM SYSTEMS TEST ANALYST documented in this encounter Results * SCAN - LABS (07/26/2016 12:00 AM SYSTEMS TEST ANALYST) Narrative 07/26/2016 12:00 AM SYSTEMS TEST ANALYST Ordered by an unspecified provider. us Historical Provider Final Res ult documented in this encounter Visit Diagnoses Not on filedocumented in this encounter Care Teams Phlebotomy Director Relationship Specialty Start Date End Date Brigette Hernandez MD [address] [facility] 250 [place] [address] PCP - General Internal Medicine 01/28/19 Viktoriya Coats MD [address] [facility] [address] [place] [address] Referring Physician Obstetrics and Gynecology 09/06/21 09/12/23 Blane Sheppard Jr., DPM [address] [facility] [address] [place], [place] [phone] Referring Physician Podiatry 09/06/21 Luiz Londono MD [address] GASTROENTEROLOGY [place], [place] [address] Referring Physician Gastroenterology 09/06/21 Sri Doll, SALES REPRESENTATIVE MEATS [address] [facility] 200 [place], [place] [address] Nurse Practitioner Nurse Practitioner 09/13/23 Sarah Santamaria MD [address] [facility] 200 [place] [address] Referring Physician Gynecology 09/11/24 documented as of this encounter
--- OUTSIDE RECORDS SUMMARY | 2025-01-23 10:55 | XMS_ITS | Encounter Summary ---
Author Organization [facility] Facility Care Team Providers Care Monotype Keyboard Operator Name Role Phone Brigette Hernandez MD Primary Care Provider + [phone] Viktoriya Coats MD Unavailable +[phone] Silver Martinez DPM, Gabriel Unavailable + [phone] Luiz Londono MD Unavailable + Sri Doll NP Unavailable Sarah Santamaria MD Unavailable +[phone] Encounter Details Date Type Department Care Team (Latest Contact Info) Description 07/07/2016 Orders Only [facility] CLINCONV ProviderAndreas MD [address] [place] [address] Social History Tobacco Use Types Packs/Day Years Used Date Smoking Tobacco: Never Assessed Comments Unknown Sex and Gender Information Value Date Recorded Sex Assigned at Not on file Legal Sex Female 7:35 PM DATA COMMUNICATIONS ENGINEER Gender Identity Not on file Sexual Orientation Not on file documented as of this encounter Plan of Treatment Not on file documented as of this encounter Procedures Procedure Name Priority Date/Time Associated Diagnosis Comments SCAN - LABS 07/26/2016 12:00 AM DATA COMMUNICATIONS ENGINEER documented in this encounter Results * SCAN - LABS (07/26/2016 12:00 AM DATA COMMUNICATIONS ENGINEER) Narrative 07/26/2016 12:00 AM DATA COMMUNICATIONS ENGINEER Ordered by an unspecified provider. us Historical Provider Final Res ult documented in this encounter Visit Diagnoses Not on filedocumented in this encounter Care Teams Monotype Keyboard Operator Relationship Specialty Start Date End Date Brigette Hernandez MD [address] [facility] 250 [place] [address] PCP - General Internal Medicine 01/28/19 Viktoriya Coats MD [address] [facility] 908 [place] [address] Referring Physician Obstetrics and Gynecology 09/06/21 09/12/23 Blane Sheppard Jr., DPM [address] [facility] [address] [place], [place] [phone] Referring Physician Podiatry 09/06/21 Luiz Londono MD [address] GASTROENTEROLOGY [place], [place] [address] Referring Physician Gastroenterology 09/06/21 Sri Doll, PRECISION FARMING COORDINATOR [address] [facility] 200 [place], [place] [phone] Nurse Practitioner Nurse Practitioner 09/13/23 Sarah Santamaria MD [address] [facility] 200 [place] [address] Referring Physician Gynecology 09/11/24 documented as of this encounter
--- OUTSIDE RECORDS SUMMARY | 2025-01-23 10:55 | XMS_ITS | Encounter Summary ---
Author Organization [facility] Facility Care Team Providers Care Dice Spotter Name Role Phone Brigette Hernandez MD Primary Care Provider + [phone] Viktoriya Coats MD Unavailable +[phone] Silver Martinez DPM, Gabriel Unavailable + [phone] Luiz Londono MD Unavailable + Sri Doll NP Unavailable Sarah Santamaria MD Unavailable +[phone] Encounter Details Date Type Department Care Team (Latest Contact Info) Description 09/06/2015 Orders Only [facility] CLINCONV ProviderAndreas MD [address] [place] [address] Social History Tobacco Use Types Packs/Day Years Used Date Smoking Tobacco: Never Assessed Comments Unknown Sex and Gender Information Value Date Recorded Sex Assigned at Not on file Legal Sex Female 7:35 PM SCALP SPECIALIST Gender Identity Not on file Sexual [...] on filedocumented in this encounter Care Teams Dice Spotter Relationship Specialty Start Date End Date Brigette Hernandez MD [address] [facility] [address] [place] [address] PCP - General Internal Medicine 01/28/19 Viktoriya Coats MD [address] [facility] 908 [place] [address] Referring Physician Obstetrics and Gynecology 09/06/21 09/12/23 Blane Sheppard Jr., DPM [address] [facility] [address] [place], [place] [phone] Referring Physician Podiatry 09/06/21 Luiz Londono MD [address] GASTROENTEROLOGY [place], [place] [address] Referring Physician Gastroenterology 09/06/21 Sri Doll, BEHAVIOR THERAPIST [address] [facility] 200 [place] [address] Nurse Practitioner Nurse Practitioner 09/13/23 Sarah Santamaria MD [address] [facility] 200 [place] [address] Referring Physician Gynecology 09/11/24 documented as of this encounter
== END 2025-01-23 10:52 | disposition home or self-care (01) ==
PROVIDERS: PCP Internal Medicine; Visit Provider Surgery
DX: R19.00 Intra-abdominal and pelvic swelling, mass and lump, unspecified site (principal)
CPT/HCPCS: 74176

== ENCOUNTER 2025-02-17 15:45 | Emergency (ER) | payer OTHER, SELFPAY ==
--- OUTSIDE RECORDS SUMMARY | 2025-02-17 15:47 | XMS_ITS | Encounter Summary ---
Author Organization [facility] Address [address] [place] [address] Care Team Providers Care Hospital Social Worker Name Role Phone Unavailable Primary Care Provider Unavailabl e Encounter Details Date Type Department Care Team (Late st Contact Info) Description 11/02/2018 Abstract [facility] CONVERSION [address] [facility], [place] [id number] , Generic Conversion, Social History Tobacco Use [...]
--- OUTSIDE RECORDS SUMMARY | 2025-02-17 15:47 | XMS_ITS | Encounter Summary ---
Author Organization [facility] Facility Care Team Providers Care Circle Shear Operator Name Role Phone Brigette Hernanedz MD Primary Care Provider + [phone] Viktoriya Coats MD Unavailable +[phone] Silver Martinez DPM, Gabriel Unavailable + [phone] Luiz Londono MD Unavailable + Sri Doll NP Unavailable Sarah Santamaria MD Unavailable +[phone] Encounter Details Date Type Department Care Team (Latest Contact Info) Description 07/26/2016 Orders Only [facility] CLINCONV ProviderAndreas MD [address] [place] [address] Social History Tobacco Use Types Packs/Day Years Used Date Smoking Tobacco: Never Assessed Comments Unknown Sex and Gender Information Value Date Recorded Sex Assigned at Not on file Legal Sex Female 7:35 PM ASSISTIVE TECHNOLOGY TRAINER Gender Identity Not on file Sexual Orientation Not on file documented as of this encounter Plan of Treatment Not on file documented as of this encounter Procedures Procedure Name Priority Date/Time Associated Diagnosis Comments COLONOSCOPY - SCAN 07/26/2016 12 :00 AM ASSISTIVE TECHNOLOGY TRAINER documented in this encounter Results * COLONOSCOPY - SCAN (07/26/2016 12:00 AM ASSISTIVE TECHNOLOGY TRAINER) Narrative 07/26/2016 12:00 AM ASSISTIVE TECHNOLOGY TRAINER Ordered by an unspecified provider. us Historical Provider Final Res ult documented in this encounter Visit Diagnoses Not on filedocumented in this encounter Care Teams Circle Shear Operator Relationship Specialty Start Date End Date Brigette Hernandez MD 1418 [facility] 250 [place] [address] PCP - General Internal Medicine 01/28/19 Viktoriya Coats MD [address] [facility] 908 [place] [address] Referring Physician Obstetrics and Gynecology 09/06/21 09/12/23 Blane Sheppard Jr., DPM [address] [facility] [address] [place], [place] [address] Referring Physician Podiatry 09/06/21 Luiz Londono MD [address] GASTROENTEROLOGY [place], [place] [address] Referring Physician Gastroenterology 09/06/21 Sri Doll, GLOBE CHANGER [address] [facility] 200 [place], [place] [phone] Nurse Practitioner Nurse Practitioner 09/13/23 Sarah Santamaria MD [address] [facility] 200 [place] [address] Referring Physician Gynecology 09/11/24 documented as of this encounter
--- OUTSIDE RECORDS SUMMARY | 2025-02-17 15:47 | XMS_ITS | Encounter Summary ---
Author Organization [facility] Facility Care Team Providers Care Returning Officer Name Role Phone Brigette Hernandez MD Primary Care Provider + [phone] Viktoriya Coats MD Unavailable +[phone] Silver Martinez DPM, Gabriel Unavailable + [phone] Luiz Londono MD Unavailable + Sri Doll NP Unavailable Sarah Santamaria MD Unavailable [phone] Encounter Details Date Type Department Care Team (Latest Contact Info) Description 08/06/2018 Orders Only [facility] CLINCONV ProviderAndreas MD [address] [place] [address] Social History Tobacco Use Types Packs/Day Years Used Date Smoking Tobacco: Never Assessed Comments Unknown Sex and Gender Information Value Date Recorded Sex Assigned at Not on file Legal Sex Female 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 SERVER 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 Gender Identity Not on file Sexual Orientation [...] on filedocumented in this encounter Care Teams Returning Officer Relationship Specialty Start Date End Date Brigette Hernandez MD 1418 [facility] 250 [place] [address] PCP - General Internal Medicine 01/28/19 Viktoriya Coats MD [address] [facility] 908 [place] [address] Referring Physician Obstetrics and Gynecology 09/06/21 09/12/23 Blane Sheppard Jr., DPM [address] [facility] [address] [place], [place] [address] Referring Physician Podiatry 09/06/21 Luiz Londono MD [address] GASTROENTEROLOGY [place], [place] [address] Referring Physician Gastroenterology 09/06/21 Sri Doll, THORACIC MEDICINE SPECIALIST [address] [facility] 200 [place] [address] Nurse Practitioner Nurse Practitioner 09/13/23 Sarah Santamaria MD [address] [facility] 200 [place] [address] Referring Physician Gynecology 09/11/24 documented as of this encounter
--- OUTSIDE RECORDS SUMMARY | 2025-02-17 15:47 | XMS_ITS | Encounter Summary ---
Author Organization [facility] Facility Care Team Providers Care Transport Truck Driver Name Role Phone Brigette Hernandez MD Primary Care Provider + [phone] Viktoriya Coats MD Unavailable +[phone] Silver Martinez DPM, Gabriel Unavailable + [phone] Luiz Londono MD Unavailable + Sri Doll NP Unavailable Sarah Santamaria MD Unavailable [phone] Encounter Details Date Type Department Care Team (Latest Contact Info) Description 07/13/2016 Orders Only [facility] CLINCONV ProviderAndreas MD [address] [place] [address] Social History Tobacco Use Types Packs/Day Years Used Date Smoking Tobacco: Never Assessed Comments Unknown Sex and Gender Information Value Date Recorded Sex Assigned at Not on file Legal Sex Female 7:35 PM RESIN REMOVER Gender Identity Not on file Sexual Orientation Not on file documented as of this encounter Plan of Treatment Not on file documented as of this encounter Procedures Procedure Name Priority Date/Time Associated Diagnosis Comments SCAN - LABS 07/26/2016 12:00 AM RESIN REMOVER documented in this encounter Results * SCAN - LABS (07/26/2016 12:00 AM RESIN REMOVER) Narrative 07/26/2016 12:00 AM RESIN REMOVER Ordered by an unspecified provider. us Historical Provider Final Res ult documented in this encounter Visit Diagnoses Not on filedocumented in this encounter Care Teams Transport Truck Driver Relationship Specialty Start Date End Date Brigette Hernandez MD [address] [facility] 250 [place] [address] PCP - General Internal Medicine 01/28/19 Viktoriya Coats MD [address] [facility] 908 [place] [address] Referring Physician Obstetrics and Gynecology 09/06/21 09/12/23 Blane Sheppard Jr., DPM [address] [facility] [address] [place], [place] [address] Referring Physician Podiatry 09/06/21 Luiz Londono MD [address] GASTROENTEROLOGY [place], [place] [address] Referring Physician Gastroenterology 09/06/21 Sri Doll, INDUSTRIAL EQUIPMENT WIRER [address] [facility] 200 [place], [place] [phone] Nurse Practitioner Nurse Practitioner 09/13/23 Sarah Santamaria MD [address] [facility] 200 [place] [address] Referring Physician Gynecology 09/11/24 documented as of this encounter
--- OUTSIDE RECORDS SUMMARY | 2025-02-17 15:47 | XMS_ITS | Encounter Summary ---
Author Organization [facility] Facility Care Team Providers Care Railroad Track Mechanic Name Role Phone Brigette Hernandez MD Primary Care Provider + [phone] Viktoriya Coats MD Unavailable [phone] Silver Martinez DPM, Gabriel Unavailable + [phone] Luiz Londono MD Unavailable + Sri Doll NP Unavailable Sarah Santamaria MD Unavailable [phone] Encounter Details Date Type Department Care Team (Latest Contact Info) Description 01/02/2018 Orders Only [facility] CLINCONV ProviderAndreas MD [address] [place] [address] Social History Tobacco Use Types Packs/Day Years Used Date Smoking Tobacco: Never Assessed Comments Unknown Sex and Gender Information Value Date Recorded Sex Assigned at Not on file Legal Sex Female 7:35 PM LIFE SCIENCE TECHNICAL OFFICER Gender Identity Not on file Sexual [...] filedocumented in this encounter Care Teams Railroad Track Mechanic Relationship Specialty Start Date End Date Brigette Hernandez MD 1418 [facility] 250 [place] [address] PCP - General Internal Medicine 01/28/19 Viktoriya Coats MD [address] [facility] 908 [place] [address] Referring Physician Obstetrics and Gynecology 09/06/21 09/12/23 Blane Sheppard Jr., DPM [address] [facility] [address] [place], [place] [address] Referring Physician Podiatry 09/06/21 Luiz Londono MD [address] GASTROENTEROLOGY [place], [place] [address] Referring Physician Gastroenterology 09/06/21 Sri Doll, PHLEBOTOMY SERVICES TECHNICIAN [address] [facility] 200 [place] [address] Nurse Practitioner Nurse Practitioner 09/13/23 Sarah Santamaria MD [address] [facility] 200 [place] [address] Referring Physician Gynecology 09/11/24 documented as of this encounter
--- OUTSIDE RECORDS SUMMARY | 2025-02-17 15:47 | XMS_ITS | Encounter Summary ---
Author Organization [facility] Facility Care Team Providers Care Personal Lines Appraiser Name Role Phone Brigette Hernandez MD Primary Care Provider + [phone] Viktoriya Coats MD Unavailable +[phone] Silver Martinez DPM, Gabriel Unavailable + [phone] Luiz Londono MD Unavailable + Sri Doll NP Unavailable Sarah Santamaria MD Unavailable [phone] Encounter Details Date Type Department Care Team (Latest Contact Info) Description 03/25/2015 Orders Only [facility] CLINCONV ProviderAndreas MD [address] [place] [address] Social History Tobacco Use Types Packs/Day Years Used Date Smoking Tobacco: Never Assessed Comments Unknown Sex and Gender Information Value Date Recorded Sex Assigned at Not on file Legal Sex Female 7:35 PM LOAN OPERATIONS MANAGER Gender Identity Not on file Sexual [...] on filedocumented in this encounter Care Teams Personal Lines Appraiser Relationship Specialty Start Date End Date Brigette Hernandez MD 14[address] [facility] 250 [place] [address] PCP - General Internal Medicine 01/28/19 Viktoriya Coats MD [address] [facility] 908 [place] [address] Referring Physician Obstetrics and Gynecology 09/06/21 09/12/23 Blane Sheppard Jr., DPM [address] [facility] [address] [place], [place] [phone] Referring Physician Podiatry 09/06/21 Luiz Londono MD [address] GASTROENTEROLOGY [place], [place] [address] Referring Physician Gastroenterology 09/06/21 Sri Doll, GYNECOLOGY TEACHER [address] [facility] 200 [place] [address] Nurse Practitioner Nurse Practitioner 09/13/23 Sarah Santamaria MD [address] [facility] 200 [place] [address] Referring Physician Gynecology 09/11/24 documented as of this encounter
--- OUTSIDE RECORDS SUMMARY | 2025-02-17 15:47 | XMS_ITS | Encounter Summary ---
Author Organization [facility] Healthcare Address [address] [place] [address] Care Team Providers Care Keyseating Machine Set Up Operator Name Role Phone Brigette Hernandez MD Primary Care Provider + [phone] Silver Martinez DPM, Gabriel Unavailable + [phone] Luiz Londono MD Unavailable + Sri Doll NP Unavailable Sarah Santamaria MD Unavailable +[phone] Encounter Details Date Type Department Care Team (Late st Contact Info) Description 09/22/2024 Orders Only [facility] Health Information Management [address] [place] [address] Scanning, Provider Social History Tobacco Use Types [...] on file Legal Sex Female 7:35 PM MACHINE SIGN WRITER Gender Identity Not on file Sexual Orientation [...] on filedocumented in this encounter Care Teams Keyseating Machine Set Up Operator Relationship Specialty Start Date End Date Brigette Hernandez MD [address] [place] [address] PCP - General Internal Medicine 01/28/19 Blane Sheppadr Jr., DPM [address] [place] [address] Referring Physician Podiatry 09/06/21 Luiz Londono MD [address] [place] [address] Referring Physician Gastroenterology 09/06/21 Sri Doll, MAIL ROOM CLERK [address] [place] [address] Nurse Practitioner Nurse Practitioner 09/13/23 Sarah Santamaria MD [address] [place] [address] Referring Physician Gynecology 09/11/24 documented as of this encounter
--- OUTSIDE RECORDS SUMMARY | 2025-02-17 15:47 | XMS_ITS | Encounter Summary ---
Author Organization [facility] Healthcare Address [address] [place] [address] Care Team Providers Care Experimental Technician Name Role Phone Brigette Hernandez MD Primary Care Provider + [phone] Silver Martinez DPM, Gabriel Unavailable + [phone] Luiz Londono MD Unavailable + Sri Doll NP Unavailable Sarah Santamaria MD Unavailable +[phone] Encounter Details Date Type Department Care Team (Late st Contact Info) Description 01/23/2025 Orders Only [facility] Health Information Management [address] [place] [address] Scanning, Provider Social History Tobacco Use Types [...] on file Legal Sex Female 7:35 PM INSOLE BEVELER Gender Identity Not on file Sexual Orientation Not on file documented as of this encounter Plan of Treatment Not on file documented as of this encounter Procedures Procedure Name Priority Date/Time Associated Diagnosis Comments SCAN - RADIOLOGY/IMAGING 01/23/2025 documented in this encounter Results * SCAN - RADIOLOGY/IMAGING (01/23/2025) Anatomical Region Laterality Modality Other us Provider Scanning Final Result documented in this encounter Visit Diagnoses Not on filedocumented in this encounter Care Teams Experimental Technician Relationship Specialty Start Date End Date Brigette Hernandez MD [address] [place] [phone] PCP - General Internal Medicine 01/28/19 Blane Sheppard Jr., DPM [address] [place] [address] Referring Physician Podiatry 09/06/21 Luiz Londono MD [address] GASTROENTEROLOGY [place], [place] [address] Referring Physician Gastroenterology 09/06/21 Sri Doll, POULTRY HELPER [address] [facility] [address] [place], [place] [address] Nurse Practitioner Nurse Practitioner 09/13/23 Sarah Santamaria MD [address] [address] [place] [address] Referring Physician Gynecology 09/11/24 documented as of this encounter
--- OUTSIDE RECORDS SUMMARY | 2025-02-17 15:47 | XMS_ITS | Encounter Summary ---
Author Organization [facility] Facility Care Team Providers Care Dust Mixer Name Role Phone Brigette Hernandez MD Primary Care Provider + [phone] Viktoriya Coats MD Unavailable +[phone] Silver Martinez DPM, Gabriel Unavailable + [phone] Luiz Londono MD Unavailable + Sri Doll NP Unavailable Sarah Santamaria MD Unavailable +[phone] Encounter Details Date Type Department Care Team (Latest Contact Info) Description 07/07/2016 Orders Only [facility] CLINCONV ProviderAndreas MD [address] [place] [address] Social History Tobacco Use Types Packs/Day Years Used Date Smoking Tobacco: Never Assessed Comments Unknown Sex and Gender Information Value Date Recorded Sex Assigned at Not on file Legal Sex Female 7:35 PM CONVEYOR SYSTEM OPERATOR Gender Identity Not on file Sexual Orientation Not on file documented as of this encounter Plan of Treatment Not on file documented as of this encounter Procedures Procedure Name Priority Date/Time Associated Diagnosis Comments SCAN - LABS 07/26/2016 12:00 AM CONVEYOR SYSTEM OPERATOR documented in this encounter Results * SCAN - LABS (07/26/2016 12:00 AM CONVEYOR SYSTEM OPERATOR) Narrative 07/26/2016 12:00 AM CONVEYOR SYSTEM OPERATOR Ordered by an unspecified provider. us Historical Provider Final Res ult documented in this encounter Visit Diagnoses Not on filedocumented in this encounter Care Teams Dust Mixer Relationship Specialty Start Date End Date Brigette Hernandez MD [address] [facility] 250 [place] [address] PCP - General Internal Medicine 01/28/19 Viktoriya Coats MD [address] [facility] [address] [place] [address] Referring Physician Obstetrics and Gynecology 09/06/21 09/12/23 Blane Sheppard Jr., DPM [address] [facility] [address] [place], [place] [id number] Referring Physician Podiatry 09/06/21 Luiz Londono MD [address] GASTROENTEROLOGY [place], [place] [address] Referring Physician Gastroenterology 09/06/21 Sri Doll, BAFFLE MOUNTER [address] [facility] [address] [place], [place] [phone] Nurse Practitioner Nurse Practitioner 09/13/23 Sarah Santamaria MD [address] [facility] 200 [place] [address] Referring Physician Gynecology 09/11/24 documented as of this encounter
--- OUTSIDE RECORDS SUMMARY | 2025-02-17 15:47 | XMS_ITS | Encounter Summary ---
Author Organization [facility] Facility Care Team Providers Care Finish Grinder Name Role Phone Brigette Hernandez MD Primary Care Provider + [phone] Viktoriya Coats MD Unavailable +[phone] Silver Martinez DPM, Gabriel Unavailable + [phone] Luiz Londono MD Unavailable + Sri Doll NP Unavailable Sarah Santamaria MD Unavailable [phone] Encounter Details Date Type Department Care Team (Latest Contact Info) Description 09/06/2015 Orders Only [facility] CLINCONV ProviderAndreas MD [address] [place] [address] Social History Tobacco Use Types Packs/Day Years Used Date Smoking Tobacco: Never Assessed Comments Unknown Sex and Gender Information Value Date Recorded Sex Assigned at Not on file Legal Sex Female 7:35 PM FIG CAPRIFIER Gender Identity Not on file Sexual Orientation [...] filedocumented in this encounter Care Teams Finish Grinder Relationship Specialty Start Date End Date Brigette Hernandez MD [address] [facility] 250 [place] [address] PCP - General Internal Medicine 01/28/19 Viktoriya Coats MD [address] [facility] [address]08 [place] [address] Referring Physician Obstetrics and Gynecology 09/06/21 09/12/23 Blane Sheppard Jr., DPM [address] [facility] [address] [place], [place] [phone] Referring Physician Podiatry 09/06/21 Luiz Londono MD [address] [place]STRO[place]OLOGY [place], [place] [address] Referring Physician Gastroenterology 09/06/21 Sri Doll, HEALTH AND NUTRITION SPECIALIST [address] [facility] 200 [place] [address] Nurse Practitioner Nurse Practitioner 09/13/23 Sarah Santamaria MD [address] [facility] [address] [place] [address] Referring Physician Gynecology 09/11/24 documented as of this encounter
--- OUTSIDE RECORDS SUMMARY | 2025-02-17 15:47 | XMS_ITS | Encounter Summary ---
Author Organization [facility] Facility Care Team Providers Care Clinic Physician Name Role Phone Brigette Hernandez MD Primary Care Provider + [phone] Viktoriya Coats MD Unavailable +[phone] Silver Martinez DPM, Gabriel Unavailable + [phone] Luiz Londono MD Unavailable + Sri Doll NP Unavailable Sarah Santamaria MD Unavailable [phone] Encounter Details Date Type Department Care Team (Latest Contact Info) Description 03/16/2016 Orders Only [facility] CLINCONV ProviderAndreas MD [address] [place] [address] Social History Tobacco Use Types Packs/Day Years Used Date Smoking Tobacco: Never Assessed Comments Unknown Sex and Gender Information Value Date Recorded Sex Assigned at Not on file Legal Sex Female 7:35 PM SUPPLIER ENGINEER Gender Identity Not on file Sexual Orientation Not on file documented as of this encounter Plan of Treatment Not on file documented as of this encounter Procedures Procedure Name Priority Date/Time Associated Diagnosis Comments SCAN - LABS 04/17/2016 12:00 AM SUPPLIER ENGINEER documented in this encounter Results * SCAN - LABS (04/17/2016 12:00 AM SUPPLIER ENGINEER) Narrative 04/17/2016 12:00 AM SUPPLIER ENGINEER Ordered by an unspecified provider. us Historical Provider Final Res ult documented in this encounter Visit Diagnoses Not on filedocumented in this encounter Care Teams Clinic Physician Relationship Specialty Start Date End Date Brigette Hernandez MD [address] [facility] 250 [place] [address] PCP - General Internal Medicine 01/28/19 Viktoriya Coats MD [address] [facility] [address]08 [place] [address] Referring Physician Obstetrics and Gynecology 09/06/21 09/12/23 Blane Sheppard Jr., DPM [address] [facility] [address] [place], [place] [phone] Referring Physician Podiatry 09/06/21 Luiz Londono MD [address] GASTROENTEROLOGY [place], [place] [address] Referring Physician Gastroenterology 09/06/21 Sri Doll, BUYER ASSISTANT [address] [facility] 200 [place], [place] [phone] Nurse Practitioner Nurse Practitioner 09/13/23 Sarah Santamaria MD [address] [facility] 200 [place] [address] Referring Physician Gynecology 09/11/24 documented as of this encounter
--- OUTSIDE RECORDS SUMMARY | 2025-02-17 15:47 | XMS_ITS | Encounter Summary ---
Author Organization [facility] Facility Care Team Providers Care Building Construction Estimator Name Role Phone Brigette Hernandez MD Primary Care Provider + [phone] Viktoriya Coats MD Unavailable [phone] Silver Martinez DPM, Gabriel Unavailable + [phone] Luiz Londono MD Unavailable + Sri Doll NP Unavailable Sarah Santamaria MD Unavailable [phone] Encounter Details Date Type Department Care Team (Latest Contact Info) Description 01/04/2016 Orders Only [facility] CLINCONV ProviderAndreas MD [address] [place] [address] Social History Tobacco Use Types Packs/Day Years Used Date Smoking Tobacco: Never Assessed Comments Unknown Sex and Gender Information Value Date Recorded Sex Assigned at Not on file Legal Sex Female 7: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 Gender Identity Not on file Sexual Orientation [...] on filedocumented in this encounter Care Teams Building Construction Estimator Relationship Specialty Start Date End Date Brigette Hernandez MD [address] [facility] [address] [place] [address] PCP - General Internal Medicine 01/28/19 Viktoriya Coats MD [address] [facility] 908 [place] [address] Referring Physician Obstetrics and Gynecology 09/06/21 09/12/23 Blane Sheppard Jr., DPM [address] [facility] [address] [place], [place] [id number] Referring Physician Podiatry 09/06/21 Luiz Londono MD [address] GASTROENTEROLOGY [place], [place] [address] Referring Physician Gastroenterology 09/06/21 Sri Doll, FLEXIBLE SHAFT WINDER [address] [facility] [address] [place] [address] Nurse Practitioner Nurse Practitioner 09/13/23 Sarah Santamaria MD [address] [facility] 200 [place] [address] Referring Physician Gynecology 09/11/24 documented as of this encounter
--- OUTSIDE RECORDS SUMMARY | 2025-02-17 15:47 | XMS_ITS | Clinical Summary ---
Author Organization [facility] Address [address] [place] [address] Care Team Providers Care Rack Pusher Name Role Phone Unavailable Primary Care Provider [...] Vaccines (1 of 2) 02/22/2012 COVID-19 Vaccine ( - 2023-2 5 season) 2025 RSV Immunization or 60+ Years (1 - [...]
--- OUTSIDE RECORDS SUMMARY | 2025-02-17 15:47 | XMS_ITS | Clinical Summary ---
Author Organization [facility] Address [address] [place] [address] Care Team Providers Care Surveillance Officer Name Role Phone Brigette Hernandez MD Primary Care Provider + [phone] Silver Martinez DPM, Gabriel Unavailable + [phone] Luiz Londono MD Unavailable + Sri Doll NP Unavailable Sarah Santamaria MD Unavailable [phone] Allergies Active Allergy Reactions Criticality Noted Date Comments Amoxicillin Rash Medium 01/08/2019 rash Amoxicillin-Pot Clavulanate Rash Medium 01/09/20 19 rash clavulanic acid Medications fluticasone propionate (FLONASE) 50 mcg/actuation nasal spray daily Active magnesium gluconate 200 mg tablet 1 tablet (200 mg total) daily Active coenzyme [id number] 100-5 mg-unit capsule 100 mg daily Active ergocalciferol, vitamin D2, (VITAMIN D2 ORAL) Take by mouth Active estradiol-noreth indrone (ACTIVELLA) 0.5-0.1 mg per tablet Take 1 tablet by mouth daily 09/03/19 24 Active SEMAGLUTIDE, WEIGHT LOSS, SUBQ Inject 5 mg under the skin 30 units injected sub q every 7 days Active terbinafine (LamiSIL) 250 mg tablet TAKE 1 TABLET BY MOUTH ONCE DAILY FOR 7 DAYS ONCE A MONTH 21 tablet 12/04/19 25 Active levothyroxine (SYNTHROID) 50 mcg tablet Take 1 tablet by mouth once daily 90 tablet 1 12/31/19 25 Active atorvastatin (LIPITOR) 10 mg tabletIndication s:Dyslipidemia Take 1 tablet (10 mg total) by mouth daily 90 tablet 01/03/20 25 Active losartan (COZAAR) 25 mg tabletIndication s:Essential (primary) hypertension Take 1 tablet by mouth once daily 90 tablet 1 01/29/20 25 Active losartan (COZAAR) 25 mg tabletIndication s:Essential (primary) hypertension Take 1 tablet (25 mg total) by mouth daily 30 tablet 3 10/10/19 25 025 Discontinued Active Problems Problem Noted Date Diagnosed Date Abnormal vaginal bleeding 09/11/2024 Assessment & Plan (09/11/2024 9:21 AM CDT): Under the care of MANAGER PRODUCT DESIGN Dr Santamaria will be having a hysteroscopy [...] and establishing or updating healthcare power of civil attorney document and providing our office with [...] and establishing or updating healthcare power of civil attorney document and providing our office with [...] and establishing or updating healthcare power of civil attorney document and providing our office with a copy. Assessment & Plan (05/31/2020 4:03 PM CREDIT MANAGER): Wear sunscreen with SPF over 50 [...] 03/29/2020 Assessment & Plan (05/31/2020 4:13 PM CREDIT MANAGER): Resolved, took 2 mos for the [...] repeated Assessment & Plan (05/31/2020 4:03 PM CREDIT MANAGER): Stable on statin. Ff low chol diet Assessment & Plan (04/01/2019 9:45 PM CREDIT MANAGER): Cont atorvastatin at current dose, last [...] diet Assessment & Plan (05/31/2020 4:03 PM CREDIT MANAGER): BP is controlled, cont current dose Ff low sodium diet Assessment & Plan (04/01/2019 9:44 PM CREDIT MANAGER): Follow low sodium DASH Diet. Exercise [...] order Assessment & Plan (05/31/2020 4:24 PM CREDIT MANAGER): Cont current dose is euthyroid Report if has frequent palpitations, irreg heart beat or sudden changes in weight. Report if develops problem swallowing or hoarseness Assessment & Plan (04/01/2019 9:46 PM CREDIT MANAGER): Cont current 75mcg dose pending TSH [...] 04/2024 Assessment & Plan (05/31/2020 4:08 PM CREDIT MANAGER): Colonoscopy- Numerous diverticuli throughout entire colon and small polyp cecum (Dr. Dailey) 09/11/2014 05/07/2020 DR Salgado, 5 polyps removed, diverticuli and int hemorrhoids on a 4 yr ff up now Assessment & Plan (04/01/2019 9:50 PM CREDIT MANAGER): Colonoscopy due 08/2019 Resolved Problems Problem Noted Date Diagnosed Date Resolved Date Boil of leg except foot 09/06/2021 100 12/2023 Assessment & Plan (09/06/2021 2:43 PM CDT): Still with redness and inflammation Start Doxycycline 100 mg bid x 7-10 days Call if worsens Lipoma 04/01/2019 04/01/2019 Encounters Date Type Department Care Team Description 01/23/2025 Orders Only [facility] Health Information Management [address] [place] [address] Scanning, Provider 12/30/2024 Letter (Out) [facility] Medical [facility] Primary Care [address] [place] [phone] 12/29/2024 Patient Message [facility] Primary Care [address] [place] [phone] Brigette Hernandez MD Referrals ir umbilicalcal hernia repair from Last 3 Months Immunizations Immunization Administration [...] on file Legal Sex Female 7:35 PM CREDIT MANAGER Gender Identity Not on file Sexual [...] Screening 03/16/2021 03/16/2020 Covid-19 Vaccine ( season) 2025 02/22/2023, 02/10/2022, 08/14/2020, Additional history exists Influenza [...] Associated Diagnosis Comments SCAN - RADIOLOGY/IMAGING 01/23/2025 COLONOSCOPY Routine 11/27/2024 3:06 PM CDT SCREENING MAMMOGRAM Schedule Routine, Read Routine (OP Routine) 11/27/2024 1:45 PM CDT HM HEPATITIS C SCREENING Routine 10/05/2022 PAP SMEAR WITH HPV Routine 03/16/2020 from Last 3 Months or Most Recently Relevant to Health Maintenance Results * SCAN - RADIOLOGY/IMAGING (01/23/2025) Anatomical Region Laterality Modality Other us Provider Scanning Final Result * (ABNORMAL) COLONOSCOPY (11/27/2024 3:06 PM CDT) Scribed Colonoscopy Abnormal Historical Provider HEALTH MAINTENANCE Final Result * (ABNORMAL) Screening Mammogram (11/27/2024 1:45 PM CDT) Anatomical Region Laterality Modality Breast N/A Mammography Historical Provider IMG MAMMO PROCEDURES Lisa l Result * HEPATITIS C SCREENING (10/05/2022) SCRIBED HCV ab NEGATIVE Historical Provider HEALTH MAINTENANCE Edited Result - Final * PAP SMEAR WITH HPV (03/16/2020) Historical Provider HEALTH MAINTENANCE Final Result from Last 3 Months or Most Recently Relevant to Health Maintenance Insurance Care Teams Surveillance Officer Relationship Specialty Start Date End Date Brigette Hernandez MD [address] [place] [address] PCP - General Internal Medicine 01/28/19 Blane Sheppard Jr., DPM [address] [place] [address] Referring Physician Podiatry 09/06/21 Luiz Londono MD [address] [place] [address] Referring Physician Gastroenterology 09/06/21 Sri Doll, COOLING TOWER OPERATOR [address] [facility] 200 [place] [address] Nurse Practitioner Nurse Practitioner 09/13/23 Sarah Santamaria MD [address] [facility] [address] [place] [address] Referring Physician Gynecology 09/11/24
--- OUTSIDE RECORDS SUMMARY | 2025-02-17 15:47 | XMS_ITS | Encounter Summary ---
Author Organization [facility] Facility Care Team Providers Care Burglary Investigator Name Role Phone Brigette Hernandez MD Primary Care Provider + [phone] Viktoriya Coats MD Unavailable +[phone] Silver Martinez DPM, Gabriel Unavailable + [phone] Luiz Londono MD Unavailable + Sri Doll NP Unavailable Sarah Santamaria MD Unavailable +[phone] Encounter Details Date Type Department Care Team (Latest Contact Info) Description 01/15/2017 Orders Only [facility] CLINCONV ProviderAndreas MD [address] [place] [address] Social History Tobacco Use Types Packs/Day Years Used Date Smoking Tobacco: Never Assessed Comments Unknown Sex and Gender Information Value Date Recorded Sex Assigned at Not on file 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 Gender Identity Not on file Sexual [...] on filedocumented in this encounter Care Teams Burglary Investigator Relationship Specialty Start Date End Date Brigette Hernandez MD [address] [facility] [address] [place] [address] PCP - General Internal Medicine 01/28/19 Viktoriya Coats MD [address] [facility] [address] [place] [address] Referring Physician Obstetrics and Gynecology 09/06/21 09/12/23 Blane Sheppard Jr., DPM [address] [facility] [address] [place], [place] [phone] Referring Physician Podiatry 09/06/21 Luiz Londono MD [address] GASTROENTEROLOGY [place], [place] [address] Referring Physician Gastroenterology 09/06/21 Sri Doll, DATA SECURITY CONSULTANT [address] [facility] [address] [place] [address] Nurse Practitioner Nurse Practitioner 09/13/23 Sarah Santamaria MD [address] [facility] [address] [place] [address] Referring Physician Gynecology 09/11/24 documented as of this encounter
--- OUTSIDE RECORDS SUMMARY | 2025-02-17 15:47 | XMS_ITS | Encounter Summary ---
Author Organization [facility]/Health system Facility Care Team Providers Care Payroll And Benefits Assistant Name Role Phone Brigette Hernandez MD Primary Care Provider + [phone] Viktoriya Coats MD Unavailable +[phone] Silver Martinez DPM, Gabriel Unavailable + [phone] Luiz Londono MD Unavailable + Sri Doll NP Unavailable Sarah Santamaria MD Unavailable [phone] Encounter Details Date Type Department Care Team (Latest Contact Info) Description 07/25/2017 Orders Only [facility] CLINCONV ProviderAndreas MD [address] [place] [address] Social History Tobacco Use Types Packs/Day Years Used Date Smoking Tobacco: Never Assessed Comments Unknown Sex and Gender Information Value Date Recorded Sex Assigned at Not on file 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 us Historical Provider Final Res ult documented in this encounter Visit Diagnoses Not on filedocumented in this encounter Care Teams Payroll And Benefits Assistant Relationship Specialty Start Date End Date Brigette Hernandez MD [address] [facility] [address] [place] [address] PCP - General Internal Medicine 01/28/19 Viktoriya Coats MD [address] [facility] [address] [place] [address] Referring Physician Obstetrics and Gynecology 09/06/21 09/12/23 Blane Sheppard Jr., DPM [address] [facility] [address] [place], [place] [id number] Referring Physician Podiatry 09/06/21 Luiz Londono MD [address] GASTROENTEROLOGY [place], [place] [address] Referring Physician Gastroenterology 09/06/21 Sri Doll, SET DESIGNER [address] [facility] 200 [place], [place] [phone] Nurse Practitioner Nurse Practitioner 09/13/23 Sarah Santamaria MD [address] [facility] 200 [place] [address] Referring Physician Gynecology 09/11/24 documented as of this encounter
[2025-02-17 15:52] VITALS: BP 147/83; PULSE 75; RESP 16; TEMP 36.2; O2SAT 97
[2025-02-17 15:58] LABS: EDUAAPPEAR Cloudy; EDUABILI Negative (Negative); EDUABLOOD 3+ (Negative); EDUACOLOR1 Dark; EDUAGLUCOSE Negative (Negative); EDUAKETONE Negative (Negative); EDUALEUKO 1+ (Negative); EDUANITRATE Positive (Negative); EDUAPH 6.0; EDUAPROTEIN 2+ (Negative); EDUASPGRAVITY 1.025; EDUAUROBILI 0.2
--- NOTE | 2025-02-17 16:10 | ED.FEMALEGU ---
HPI - Female Genitourinary General Chief complaint: Urogenital-Female Stated complaint: UTI Time Seen by Provider: 02/17/25 16:00 Source: patient and RN notes reviewed Mode of arrival: ambulatory Limitations: no limitations History of Present Illness HPI Narrative: 64-year-old female presents Express Care complaining of urinary symptoms for 1 day. Patient reports having dysuria, increased frequency, hesitancy, specks of blood in her urine. Patient reports a sensation of not feeling well today. Patient denies any fevers, abdominal pain, body aches, chills, nausea, vomiting, diarrhea. Patient has not taken anything [id number] for symptoms. Patient patient reports a history of hypothyroid and hypertension.. Related Data Home Medications ?Medication ?Instructions ?Recorded ?Confirmed ?Last Taken ?Type Glucomanan 1 dose PO DAILY 04/28/20 02/04/25 05/08/24 History ascorbic acid (vitamin C) 1,000 mg 1 g PO DAILY 04/28/20 02/04/25 05/08/24 History tablet atorvastatin 10 mg tablet 10 mg PO DAILY 04/28/20 02/04/25 05/08/24 History cetirizine 10 mg tablet (Zyrtec) 10 mg PO DAILY PRN Allergy Symptoms 04/28/20 02/04/25 05/08/24 History levothyroxine 75 mcg tablet 50 mcg PO DAILY 04/28/20 02/04/25 09/22/24 History magnesium 500 mg tablet 500 mg PO DAILY 04/28/20 02/04/25 05/08/24 History norethindrone acetate 1 mg-ethinyl 0.5 tablet PO DAILY 04/28/20 02/04/25 09/22/24 History estradiol 5 mcg tablet (Jinteli) cholecalciferol (vitamin D3) 25 25 mcg PO DAILY 04/28/24 02/04/25 05/08/24 History mcg (1,000 unit) capsule (Vitamin D3) semaglutide (weight loss) 0.5 0.5 mg subcut WEEKLY 04/30/24 02/04/25 09/12/24 History mg/0.5 mL subcutaneous pen injector terbinafine HCl 250 mg tablet 250 mg PO DAILY PRN once daily for 09/11/24 02/04/25 09/22/24 History 7 days once a month progesterone micronized 200 mg 200 mg PO DAILY 01/13/25 02/04/25 Unknown History capsule Allergies Allergy/AdvReac Type Severity Reaction Status Date / Time amoxicillin Allergy Mild Rash Verified 02/18/25 08:09 clavulanic acid (From Allergy Mild Rash Verified 02/18/25 08:09 Augmentin) nitrofurantoin (From Allergy Mild Rash Verified 02/18/25 08:09 Macrobid) Review of Systems Review of Systems: CONSTITUTIONAL: Denies fever, chills, body aches, or sweats. EYES: Denies visual changes, redness, or discharge. ENT: Denies rhinorrhea, congestion, sore throat, or otalgia. CARDIOVASCULAR: Denies chest pain, palpitations, or edema. RESPIRATORY: Denies cough or dyspnea. GASTROINTESTINAL: Denies abdominal pain, nausea, vomiting, or diarrhea. GENITOURINARY: Positive for dysuria, increased frequency, hesitancy, hematuria. Denies vaginal bleeding or discharge. SKIN: Denies rash or itching. MUSCULOSKELETAL: Denies back pain, joint pain, or myalgia. NEUROLOGIC: Denies headache, numbness, or weakness. PSYCHIATRIC: Denies anxiety or depression. All other systems reviewed are negative, except as documented in HPI. [facility] Past Medical History Medical History COPD (chronic obstructive pulmonary disease) Hypothyroid Hypertension Hyperlipidemia Family history of colon cancer in mother Adenomatous colon polyp Surgical History Surgical History Status post tonsillectomy H/O right breast biopsy H/O right wrist surgery 1991 with bone graft Social History Social History Smoking packs per day: 1 Smoking cigarettes per day: 20.0 Years smoked: 32 Smoking pack-years: 32.00 Smoking status: Former smoker Tobacco type: cigarettes Smoking end date: 11/25/06 Alcohol intake: current Drinks per week: 5 Alcohol use details: BEER Substance use: never Substance use type: does not use Do You Feel Safe in your Home?: Yes Lack of Transportation: No Lack of Food: Never True Current Housing: I Have Housing Concerned About Future Housing: No Difficulty Paying Gas/Electric Bills: No Difficulty Paying for Meds: No Currently Unemployed: No Education: Associate Degree Difficulty w/ Childcare or Family Care: No Living arrangements: with family Spiritual care concerns: No Comments At the time of my signature, I reviewed and agree with the nursing past medical, surgical, social, and family history. There is no relevant family history pertinent to the patient complaint. Exam Narrative: GENERAL: This is a well-nourished, well-developed adult, in no apparent distress. They are non ill-appearing, nontoxic appearing. HEAD: normocephalic, atraumatic. EYES: Sclera clear/white. Vision is grossly intact. Conjunctiva normal bilaterally. Extraocular movements intact. EARS: External ears normal,Hearing grossly intact. NOSE: External nose normal THROAT: Mucous membranes moist NECK: Normal range of motion CARDIOVASCULAR: Regular rate and rhythm. Normal S1-S2. No clicks, gallops, rubs, murmurs. RESPIRATORY: Respiratory rate normal, respiratory effort nonlabored, no respiratory distress. Lung sounds clear to auscultation throughout. Lung sounds equal bilaterally. No adventitious lung sounds. GASTROINTESTINAL: Abdomen soft, flat, non-tender, nondistended. Bowel sounds are active. No hepato-splenomegaly, or palpable masses. No guarding. No rebound tenderness. SKIN: warm, Dry, intact with no suspicious lesions or rash, good texture and turgor. NEURO: awake, alert, and oriented to person, place and time. There were no obvious focal neurologic abnormalities. EXTREMITIES: No joint tenderness, effusion, or edema noted. BACK: Nontender without deformity. No CVA tenderness. Course Course Emergency Course: Portions of this record may have been created with voice recognition software Level of Care: Express Care Visit Vital Signs Vital signs: Vital Signs Temperature 97.2 F L 02/17/25 15:52 Pulse Rate 75 02/17/25 15:52 Respiratory Rate 16 02/17/25 15:52 Blood Pressure 147/83 H 02/17/25 15:52 Pulse Oximetry 97 02/17/25 15:52 Oxygen Delivery Room Air 02/17/25 15:52 Temperature 97.2 F L 02/17/25 15:52 Pulse Rate 75 02/17/25 15:52 Respiratory Rate 16 02/17/25 15:52 Blood Pressure 147/83 H 02/17/25 15:52 Pulse Oximetry 97 02/17/25 15:52 Oxygen Delivery Room Air 02/17/25 15:52 MDM - Female Genitourinary MDM Narrative Medical decision making narrative: Urine dipstick positive for leukocytes, blood and nitrates. Urine culture pending. Patient's symptoms clinically consistent with urinary tract infection, likely a cystitis. Will treat with Macrobid. Discussed physical exam findings. Advised supportive measures and signs/symptoms to go to the ER. Pt is appropriate for outpt treatment and f/u. 02/18/25 805 patient called this morning stating causing macorbid gave her a rash this morning. Prescription of bactrim sent to pharmacy. Differential Diagnosis Differential diagnosis: Likely urinary tract infection, cystitis and other (Pyelonephritis) Lab Data Attestation: I reviewed the patient's lab results. Labs: Lab Results 02/17/25 Range/Units 15:56 POC Urine Color Dark POC Urine Clarity Cloudy POC Urine pH 6.0 POC Ur Specif [place] 1.025 POC Urine Protein 2+ (Negative) POC Ur Glucose (UA) Negative (Negative) POC Urine Ketones Negative (Negative) POC Urine Blood 3+ (Negative) POC Urine Nitrite Positive (Negative) POC Urine Bilirubin Negative (Negative) POC Urine Urobilinogen 0.2 POC U Leukocyte Esteras 1+ (Negative) Discharge Plan Discharge Clinical Impression: Urinary tract infection Patient Disposition: Home Condition: Stable Instructions: Antibiotic Form, Urinary Tract Infection in Women (ED) Additional Instructions: Take the antibiotic as prescribed The urine will be sent of for a culture to identify what type of bacteria is causing your infection. If the culture shows that the antibiotic will not get rid of your infection, you will be notified and a new antibiotic will be called in for you. Increase water intake you will need to follow up with your PCP 3-5 days. Go to the ER for any worsening symptoms, abdominal pain, fevers, nausea, vomiting, or any other concerns Patient Language: Camb[place]ian Prescriptions: New nitrofurantoin monohyd/m-cryst [Macrobid] 100 mg capsule 100 mg PO Q12H 5 Days Qty: 10 0RF Rx Instructions: must administer with a meal/food No Action semaglutide (weight loss) 0.5 mg/0.5 mL Pen Injector 0.5 mg SUBCUT WEEKLY Rx Instructions: states 5mg/1ml takes 30 units once a week progesterone micronized 200 mg capsule 200 mg PO DAILY ascorbic acid (vitamin C) 1,000 mg Tablet 1 g PO DAILY magnesium 500 mg Tablet 500 mg PO DAILY cetirizine [Zyrtec] 10 mg Tablet 10 mg PO DAILY PRN (Reason: Allergy Symptoms) atorvastatin 10 mg tablet 10 mg PO DAILY norethindrone ac-eth estradiol [Jinteli] 1-5 mg-mcg tablet 0.5 tablet PO DAILY levothyroxine 75 mcg tablet 50 mcg PO DAILY Glucomanan 1 dose PO DAILY cholecalciferol (vitamin D3) [Vitamin D3] 25 mcg (1,000 unit) Capsule 25 mcg PO DAILY terbinafine HCl 250 mg tablet 250 mg PO DAILY PRN (Reason: once daily for 7 days once a month) Follow-up/Referrals: Mary,Brigette Perera MD [Primary Care Provider, Unknown] Time of Disposition: 16:05
--- NOTE | 2025-02-18 08:16 | PC.NURSE ---
Patient called stating macrobid prescribed yesterday has caused rash on chest and neck, denies any breathing issues or swallowing difficulties, SOCIAL WORK ADMINISTRATOR Toma Cortez states she will not change prescription, spoke with SOCIAL WORK ADMINISTRATOR Jesus Cortez and he will call in bactrim for patient as he saw her yesterday.
== END 2025-02-17 16:06 | disposition home or self-care (01) ==
PROVIDERS: PCP Internal Medicine
DX: N39.0 Urinary tract infection, site not specified (principal); Z87.891 Personal history of nicotine dependence; J44.9 Chronic obstructive pulmonary disease, unspecified; I10 Essential (primary) hypertension; E03.9 Hypothyroidism, unspecified; E78.5 Hyperlipidemia, unspecified
CPT/HCPCS: 81003; 87077; 87086; 87186; 99213; G0463

== ENCOUNTER 2025-03-05 14:57 | Outpatient (CLI) | payer OTHER, SELFPAY ==
[2025-03-05 15:50] LABS: Alanine Aminotransferase 30 U/L (6-35); Albumin Level 4.3 g/dL (3.5-5.1); Alkaline Phosphatase 59 U/L (38-126); Anion Gap 9 mmol/L (4-12); Aspartate Amino Transferase 30 U/L (14-36); Bilirubin,Total 0.5 mg/dL (0.2-1.3); Blood Urea Nitrogen 22 mg/dL (7-17); Calcium 9.4 mg/dL (8.4-10.2); Carbon Dioxide 24 mmol/L (22-30); Chloride 102 mmol/L (98-107); Estimated Glomerular Filt Rate > 60; Glucose 78 mg/dL (65-110); Potassium 3.8 mmol/L (3.4-5.0); Sodium 135 mmol/L (137-145); Total Protein 6.8 g/dL (6.3-8.2)
[2025-03-06 10:09] LABS: TSH 2.330 uIU/mL (0.450-4.500)
== END 2025-03-05 14:58 | disposition home or self-care (01) ==
LOC: ANHLAB 15:03
PROVIDERS: PCP Internal Medicine; Visit Provider Internal Medicine
DX: E03.9 Hypothyroidism, unspecified (principal); Z00.00 Encounter for general adult medical examination without abnormal findings
CPT/HCPCS: 36415; 80053; 82306; 84439; 84443; 84481; 86376

== ENCOUNTER 2025-04-14 14:27 | Outpatient (CLI) | payer OTHER, SELFPAY ==
[2025-04-14 15:15] LABS: Hematocrit 40.7 % (37.0-47.0); Hemoglobin 13.4 g/dL (12.0-15.0); Immature Granulocyte Percent A 0.3 % (0-0.5); Lymphocytes Absolute Auto 2.92 K/mm3 (0.9-3.2); Mean Corpuscular HGB Conc 32.9 g/dl (32-36); Mean Corpuscular Hemoglobin 29.8 pg (26-34); Mean Corpuscular Volume 90.6 fl (80-100); Nucleated Red Blood Cells Absolute Auto 0.000 K/mm3 (0.0-0.012); Nucleated Red Blood Cells Perc 0.0 % (0.0-0.2); Platelet Count Result 275 k/mm3 (150-375); Red Blood Count 4.49 M/mm3 (4.2-5.4); White Blood Count 7.0 K/mm3 (4.5-10.0)
[2025-04-14 15:34] LABS: Iron 72 ug/dL (37-170)
[2025-04-14 15:45] LABS: Percent Iron Saturation 28 % (20-50)
[2025-04-14 16:24] LABS: Vitamin B12 950.0 pg/mL (239-931)
== END 2025-04-14 14:28 | disposition home or self-care (01) ==
LOC: ANHLAB 14:30
PROVIDERS: PCP Internal Medicine; Visit Provider Internal Medicine
DX: E78.5 Hyperlipidemia, unspecified (principal); I10 Essential (primary) hypertension; E03.9 Hypothyroidism, unspecified; G25.81 Restless legs syndrome
CPT/HCPCS: 36415; 82607; 83540; 83550; 85025